=== PATIENT | male | born 1955 | race American Indian/Alaskan Native ===

== ENCOUNTER 2021-02-13 13:10 | Inpatient (IN) | payer OTHER ==
[2021-02-13] MEDS ORDERED: dexAMETHasone 4 MG/ML VIAL IV ONE (15:09)
[2021-02-13] MEDS ORDERED: SODIUM CHLORIDE 0.9% 1000 ML 1,000 ML IV ONE (15:13)
--- NOTE | 2021-02-13 15:13 | Emergency Department Report ---
HPI - General Chief Complaint: Dyspnea/Respdistress Time Seen by Provider: 02/13/21 14:28 - HPI HPI: This is a 65-year-old -[place] male presents to the emergency department via EMS from home with complaint of shortness of breath, cough, generalized fatigue and weakness, and low oxygen. The patient was seen at [facility] about 1 week ago with a complaint of the fatigue and weakness and was found to be positive for COVID-19 at that time. The patient began to have shortness of breath and a cough about 1 day later and it has gotten progressively worse since. When EMS arrived the patient had a room air pulse ox of 77%. He was placed on a nonrebreather and went up into the mid 90s. He has a history of prostate cancer from 2019 but is not currently undergoing any type of chemotherapy or radiation. He said that he traveled to [facility] about 1 month ago. No obvious known exposure to anyone with COVID-19 and no sick contacts at home. He denies any tobacco or illicit drug use. The patient was not vaccinated against COVID-19. ED Past Medical Hx - Past Medical History Previous Medical History?: Yes Hx of Cancer: Yes (Prostate) - Social History Smoking Status: Never Smoker Substance Use Type: None - Medications Home Medications: Home Medications Medication Instructions Recorded Confirmed Last Taken Type Docusate Sodium [Dok] 100 mg PO BID 02/13/21 02/13/21 Unknown History Gabapentin [Neurontin] 300 mg PO Q8HR 02/13/21 02/13/21 Unknown History HYDROcodone/ACETAMINOPHEN 1 each PO Q6HR PRN 02/13/21 02/13/21 Unknown History [Hydrocodone-Acetamin 7.5-300] Meloxicam [Mobic] 7.5 mg PO QDAY 02/13/21 02/13/21 Unknown History Omeprazole 40 mg PO QAM 02/13/21 02/13/21 Unknown History Sildenafil Citrate 50 mg PO QDAY 02/13/21 02/13/21 Unknown History ED Review of Systems ROS: Stated complaint: CHERRIE Other details as noted in HPI Comment: All other systems reviewed and negative Constitutional: weakness. denies: fever Eyes: denies: eye pain, vision change ENT: denies: ear pain, throat pain Respiratory: cough, shortness of breath Cardiovascular: denies: chest pain, palpitations Gastrointestinal: denies: abdominal pain, vomiting Genitourinary: denies: dysuria, discharge Musculoskeletal: denies: back pain, arthralgia Skin: denies: rash, lesions Neurological: denies: headache, weakness Physical Exam - Physical Exam Vital Signs: Vital Signs 02/13/21 13:20 Temperature 98.4 F Pulse Rate 80 Respiratory 20 Rate Blood Pressure 148/87 O2 Sat by Pulse 93 Oximetry Physical Exam: GENERAL: The patient is ill-appearing. HENT: Normocephalic. Atraumatic. Patient has moist mucous membranes. EYES: Extraocular motions are intact. NECK: Supple. Trachea is midline. CHEST/LUNGS: Rhonchi heard throughout the chest. There is tachypnea but no accessory muscle use. HEART/CARDIOVASCULAR: Regular. There is no tachycardia. There is no murmur. ABDOMEN: Abdomen is soft, nontender. Patient has normal bowel sounds. There is no abdominal distention. SKIN: Skin is warm and dry. NEURO: The patient is awake, alert, and oriented. The patient is cooperative. The patient has no focal neurologic deficits. Normal speech. MUSCULOSKELETAL: There is no tenderness or deformity. There is no limitation range of motion. ED Course Vital Signs 02/13/21 13:20 Temperature 98.4 F Pulse Rate 80 Respiratory 20 Rate Blood Pressure 148/87 O2 Sat by Pulse 93 Oximetry ED Medical Decision Making - Lab Data Result diagrams: 02/13/21 16:14 02/13/21 16:14 Lab Results 02/13/21 02/13/21 02/13/21 Range/Units 16:13 16:13 16:14 WBC 7.1 (4.5-11.0) K/mm3 RBC 4.93 (3.65-5.03) M/mm3 Hgb 13.7 (11.8-15.2) gm/dl Hct 41.8 (35.5-45.6) % MCV 85 (84-94) fl MCH 28 (28-32) pg MCHC 33 (32-34) % RDW 16.4 H (13.2-15.2) % Plt Count 327 (140-440) K/mm3 Lymph % (Auto) 8.6 L (13.4-35.0) % [place] % (Auto) 6.1 (0.0-7.3) % Eos % (Auto) 0.3 (0.0-4.3) % Baso % (Auto) 0.7 (0.0-1.8) % Lymph # (Auto) 0.6 L (1.2-5.4) K/mm3 [place] # (Auto) 0.4 (0.0-0.8) K/mm3 Eos # (Auto) 0.0 (0.0-0.4) K/mm3 Baso # (Auto) 0.0 (0.0-0.1) K/mm3 Seg Neutrophils % 84.3 H (40.0-70.0) % Seg Neutrophils # 6.0 (1.8-7.7) K/mm3 PT 16.9 H (12.2-14.9) Sec. INR 1.32 H (0.87-1.13) D-Dimer 7939.49 H (0-234) ng/mlDDU Sodium (137-145) mmol/L Potassium (3.6-5.0) mmol/L Chloride (98-107) mmol/L Carbon Dioxide (22-30) mmol/L Anion Gap mmol/L BUN (9-20) mg/dL Creatinine (0.8-1.3) mg/dL Estimated GFR ml/min BUN/Creatinine Ratio % Glucose (75-100) mg/dL Calcium (8.4-10.2) mg/dL Ferritin 1427.0 H (30.0-300.0) ng/mL Total Bilirubin (0.1-1.2) mg/dL AST (5-40) units/L ALT (7-56) units/L Alkaline Phosphatase (35-129) units/L Lactate Dehydrogenase (91-180) units/L Troponin T (0.00-0.029) ng/mL C-Reactive Protein (0.00-1.30) mg/dL NT-Pro-B Natriuret Pep (0-900) pg/mL Total Protein (6.3-8.2) g/dL Albumin (3.9-5) g/dL Albumin/Globulin Ratio % 02/13/21 02/13/21 Range/Units 16:14 16:14 WBC (4.5-11.0) K/mm3 RBC (3.65-5.03) M/mm3 Hgb (11.8-15.2) gm/dl Hct (35.5-45.6) % MCV (84-94) fl MCH (28-32) pg MCHC (32-34) % RDW (13.2-15.2) % Plt Count (140-440) K/mm3 Lymph % (Auto) (13.4-35.0) % [place] % (Auto) (0.0-7.3) % Eos % (Auto) (0.0-4.3) % Baso % (Auto) (0.0-1.8) % Lymph # (Auto) (1.2-5.4) K/mm3 [place] # (Auto) (0.0-0.8) K/mm3 Eos # (Auto) (0.0-0.4) K/mm3 Baso # (Auto) (0.0-0.1) K/mm3 Seg Neutrophils % (40.0-70.0) % Seg Neutrophils # (1.8-7.7) K/mm3 PT (12.2-14.9) Sec. INR (0.87-1.13) D-Dimer (0-234) ng/mlDDU Sodium 136 L (137-145) mmol/L Potassium 5.1 H (3.6-5.0) mmol/L Chloride 101.2 (98-107) mmol/L Carbon Dioxide 22 (22-30) mmol/L Anion Gap 18 mmol/L BUN 33 H (9-20) mg/dL Creatinine 1.2 (0.8-1.3) mg/dL Estimated GFR > 60 ml/min BUN/Creatinine Ratio 28 % Glucose 124 H (75-100) mg/dL Calcium 9.4 (8.4-10.2) mg/dL Ferritin (30.0-300.0) ng/mL Total Bilirubin 0.90 (0.1-1.2) mg/dL AST 81 H (5-40) units/L ALT 108 H (7-56) units/L Alkaline Phosphatase 151 H (35-129) units/L Lactate Dehydrogenase 443 H (91-180) units/L Troponin T < 0.010 (0.00-0.029) ng/mL C-Reactive Protein 32.00 H (0.00-1.30) mg/dL NT-Pro-B Natriuret Pep 236.4 (0-900) pg/mL Total Protein 7.6 (6.3-8.2) g/dL Albumin 3.0 L (3.9-5) g/dL Albumin/Globulin Ratio 0.7 % - EKG Data -: EKG Interpreted by Me EKG shows normal: sinus rhythm, axis, intervals, QRS complexes (LVH), ST-T waves (Early repolarization) Rate: normal - EKG Data When compared to previous EKG there are: previous EKG unavailable Interpretation: LVH - Radiology Data Radiology results: image reviewed interpreted by me: Chest x-ray shows bilateral patchy opacities concerning for pneumonia. No widened mediastinum. No pneumothorax. - Medical Decision Making This patient presents to the emergency department with shortness of breath and hypoxia. He was diagnosed with COVID-19 about 1 week ago. He was found to have a room air pulse ox of about 77%. Initially the patient was on a nonrebreather but we were able to place him on a nasal cannula at 5 L. However if the patient is sitting upright, his oxygen saturation goes down into the mid to high 80s. If he is laying flat then his oxygen will remain in the mid to high 90s. Chest x-ray shows bilateral patchy opacities concerning for pneumonia. The patient's labs shows multiple abnormalities including elevated inflammatory markers consistent with COVID-19 infection, such as D-dimer, ferritin, LDH and CRP. The patient also has some elevation in his LFTs. He has been given supplemental oxygen, Decadron, IV antibiotics and IV fluid resuscitation. The patient will be admitted to the hospital for further evaluation and treatment and was accepted for admission by the hospitalist, Dr. Kuhn. Critical Care Time: Yes Critical care time in (mins) excluding proc time.: 31 Critical care attestation.: If time is entered above; I have spent that time in minutes in the direct care of this critically ill patient, excluding procedure time. Critical care time w as spent on this patient in doing his initial evaluation, multiple reevaluations, ordering and interpretation of labs and imaging, IV steroids, IV antibiotics, IV fluid resuscitation, supplemental oxygen, multiple discussions with the patient. Critical Care Time: 31 minutes ED Disposition Clinical Impression: Suspected COVID-19 virus infection, Hypoxia, Elevated liver enzymes Bilateral pneumonia Qualifiers: Pneumonia type: due to unspecified organism Lung location: unspecified part of lung Qualified Code(s): J18.9 - Pneumonia, unspecified organism Disposition: DC-09 OP ADMIT IP TO THIS HOSP Is pt being admited?: Yes Condition: Serious Time of Disposition: 17:05
[2021-02-13] MEDS ORDERED: AZITHROMYCIN/NS 500 MG/250 ML 500 MG/250 ML BAG IV ONE (15:23)
[2021-02-13] MEDS ORDERED: cefTRIAXone/NS 1 GM/50 ML 1 GM/50 ML BAG IV ONE (15:23)
--- NOTE | 2021-02-13 15:35 | XRay Report ---
CHEST 1 VIEW INDICATION: SOB. COMPARISON: None FINDINGS: Support devices: None. Heart: Within normal limits. Lungs/Pleura: Moderate bilateral airspace opacities are identified. No consolidation, pleural effusio n or pneumothorax. Additional findings: None. IMPRESSION: Moderate bilateral airspace opacities concerning for viral infection or atypical pneumonia. Signer Name: Varghese Dillon Jr, MD Signed: 02/13/2021 3:30 PM Workstation Name: [id number]
[2021-02-13 16:30] LABS: Basophils % (Auto) 0.7 % (0.0-1.8); Eosinophils % (Auto) 0.3 % (0.0-4.3); Hematocrit 41.8 % (35.5-45.6); Hemoglobin 13.7 gm/dl (11.8-15.2); Lymphocytes # (Auto) 0.6 K/mm3 (1.2-5.4); Lymphocytes % (Auto) 8.6 % (13.4-35.0); Mean Corpuscular HGB Conc 33 % (32-34); Mean Corpuscular Volume 85 fl (84-94); Monocytes # (Auto) 0.4 K/mm3 (0.0-0.8); Monocytes % (Auto) 6.1 % (0.0-7.3); Platelet Count 327 K/mm3 (140-440); Red Blood Count 4.93 M/mm3 (3.65-5.03); Red Cell Distribution Width 16.4 % (13.2-15.2)
[2021-02-13 16:39] LABS: INR 1.32 (0.87-1.13)
[2021-02-13 16:54] LABS: Alanine Aminotransferase 108 units/L (7-56); BUN/Creatinine Ratio 28; Blood Urea Nitrogen 33 mg/dL (9-20); Calcium 9.4 mg/dL (8.4-10.2); Hemolysis Index 30
--- NOTE | 2021-02-13 21:16 | History and Physical Report ---
History of Present Illness Date of examination: 02/13/21 Date of admission: 02/13/21 17:05 Chief complaint: Cough and shortness of breath for 1 week History of present illness: 65-year-old male with past medical history of prostate cancer comes via EMS for cough, shortness of breath, generalized weakness and fatigue. Also low oxygen levels. Patient was recently diagnosed with COVID-19 1 week ago at [facility] [place], [place]. Patient was not admitted. Since then patient has been progressively worsening with pulse ox of 77% at home. Patient was placed on nonrebreather and oxygen level went up to mid 90s in the emergency room patient is not on any chemotherapy for prostate cancer. Patient is not vaccinated against Covid. Intermittent fever present. T - Past Medical History Previous Medical History?: Yes Hx of Cancer: Yes (Prostate) surgical history none - Social History Smoking Status: Never Smoker Substance Use Type: None Family history Htn - Medications Home Medications: Home Medications Medication Instructions Recorded Confirmed Last Taken Type Docusate Sodium [Dok] 100 mg PO BID 02/13/21 02/13/21 Unknown History Gabapentin [Neurontin] 300 mg PO Q8HR 02/13/21 02/13/21 Unknown History HYDROcodone/ACETAMINOPHEN 1 each PO Q6HR PRN 02/13/21 02/13/21 Unknown History [Hydrocodone-Acetamin 7.5-300] Meloxicam [Mobic] 7.5 mg PO QDAY 02/13/21 02/13/21 Unknown History Omeprazole 40 mg PO QAM 02/13/21 02/13/21 Unknown History Sildenafil Citrate 50 mg PO QDAY 02/13/21 02/13/21 Unknown History Review of Systems ROS: Stated complaint: CHERRIE Other details as noted in HPI Comment: All other systems reviewed and negative Constitutional: weakness. denies: fever Eyes: denies: eye pain, vision change ENT: denies: ear pain, throat pain Respiratory: cough, shortness of breath Cardiovascular: denies: chest pain, palpitations Gastrointestinal: denies: abdominal pain, vomiting Genitourinary: denies: dysuria, discharge Musculoskeletal: denies: back pain, arthralgia Skin: denies: rash, lesions Neurological: denies: headache, weakness Medications and Allergies Allergies Allergy/AdvReac Type Severity Reaction Status Date / Time No Known Allergies Allergy Verified 02/14/21 02:07 Home Medications Medication Instructions Recorded Confirmed Last Taken Type Docusate Sodium [Dok] 100 mg PO BID 02/13/21 02/13/21 Unknown History Gabapentin [Neurontin] 300 mg PO Q8HR 02/13/21 02/13/21 Unknown History HYDROcodone/ACETAMINOPHEN 1 each PO Q6HR PRN 02/13/21 02/13/21 Unknown History [Hydrocodone-Acetamin 7.5-300] Meloxicam [Mobic] 7.5 mg PO QDAY 02/13/21 02/13/21 Unknown History Omeprazole 40 mg PO QAM 02/13/21 02/13/21 Unknown History Sildenafil Citrate 50 mg PO QDAY 02/13/21 02/13/21 Unknown History Active Meds: Active Medications Sodium Chloride (Nacl 0.9% 1000 Ml) 1,000 mls @ 125 mls/hr IV ONCE ONE Stop: 02/13/21 23:12 Last Admin: 02/13/21 16:28 Dose: 125 mls/hr Documented by: Exam - Constitutional Vitals: Temp Pulse Resp BP Pulse Ox 98.4 F 65 15 136/81 99 02/13/21 13:20 02/13/21 20:06 02/13/21 20:06 02/13/21 20:06 02/13/21 20:06 General appearance: Present: mild distress, well-nourished - EENT Eyes: Present: PERRL ENT: hearing intact, clear oral mucosa - Neck Neck: Present: supple, normal ROM - Respiratory Respiratory effort: normal Respiratory: bilateral: CTA, rhonchi (Cooperative rhonchi) - Cardiovascular Heart rate: 78 Rhythm: regular Heart Sounds: Present: S1 & S2. Absent: rub, click - Extremities Extremities: no ischemia, pulses intact, pulses symmetrical, No edema Peripheral Pulses: within normal limits - Abdominal General gastrointestinal: Present: soft, non-tender, non-distended, normal bowel sounds Male genitourinary: Present: normal - Integumentary Integumentary: Present: clear, warm, dry - Musculoskeletal Musculoskeletal: gait normal, strength equal bilaterally - Psychiatric Psychiatric: appropriate mood/affect, intact judgment & insight - Neurologic Neurologic: CNII-XII intact, moves all extremities HEART Score - HEART Score Troponin: Troponin T < 0.010 ng/mL (0.00-0.029) 02/13/21 16:14 Results - Labs CBC & Chem 7: 02/13/21 16:14 02/13/21 16:14 Labs: Laboratory Last Values WBC 7.1 K/mm3 (4.5-11.0) 02/13/21 16:14 RBC 4.93 M/mm3 (3.65-5.03) 02/13/21 16:14 Hgb 13.7 gm/dl (11.8-15.2) 02/13/21 16:14 Hct 41.8 % (35.5-45.6) 02/13/21 16:14 MCV 85 fl (84-94) 02/13/21 16:14 MCH 28 pg (28-32) 02/13/21 16:14 MCHC 33 % (32-34) 02/13/21 16:14 RDW 16.4 % (13.2-15.2) H 02/13/21 16:14 Plt Count 327 K/mm3 (140-440) 02/13/21 16:14 Lymph % (Auto) 8.6 % (13.4-35.0) L 02/13/21 16:14 [place] % (Auto) 6.1 % (0.0-7.3) 02/13/21 16:14 Eos % (Auto) 0.3 % (0.0-4.3) 02/13/21 16:14 Baso % (Auto) 0.7 % (0.0-1.8) 02/13/21 16:14 Lymph # (Auto) 0.6 K/mm3 (1.2-5.4) L 02/13/21 16:14 [place] # (Auto) 0.4 K/mm3 (0.0-0.8) 02/13/21 16:14 Eos # (Auto) 0.0 K/mm3 (0.0-0.4) 02/13/21 16:14 Baso # (Auto) 0.0 K/mm3 (0.0-0.1) 02/13/21 16:14 Seg Neutrophils % 84.3 % (40.0-70.0) H 02/13/21 16:14 Seg Neutrophils # 6.0 K/mm3 (1.8-7.7) 02/13/21 16:14 PT 16.9 Sec. (12.2-14.9) H 02/13/21 16:13 INR 1.32 (0.87-1.13) H 02/13/21 16:13 D-Dimer 7939.49 ng/mlDDU (0-234) H 02/13/21 16:13 Sodium 136 mmol/L (137-145) L 02/13/21 16:14 Potassium 5.1 mmol/L (3.6-5.0) H 02/13/21 16:14 Chloride 101.2 mmol/L (98-107) 02/13/21 16:14 Carbon Dioxide 22 mmol/L (22-30) 02/13/21 16:14 Anion Gap 18 mmol/L 02/13/21 16:14 BUN 33 mg/dL (9-20) H 02/13/21 16:14 Creatinine 1.2 mg/dL (0.8-1.3) 02/13/21 16:14 Estimated GFR > 60 ml/min 02/13/21 16:14 BUN/Creatinine Ratio 28 % 02/13/21 16:14 Glucose 124 mg/dL (75-100) H 02/13/21 16:14 Calcium 9.4 mg/dL (8.4-10.2) 02/13/21 16:14 Ferritin 1427.0 ng/mL (30.0-300.0) H 02/13/21 16:13 Total Bilirubin 0.90 mg/dL (0.1-1.2) 02/13/21 16:14 AST 81 units/L (5-40) H 02/13/21 16:14 ALT 108 units/L (7-56) H 02/13/21 16:14 Alkaline Phosphatase 151 units/L (35-129) H 02/13/21 16:14 Lactate Dehydrogenase 443 units/L (91-180) H 02/13/21 16:14 Troponin T < 0.010 ng/mL (0.00-0.029) 02/13/21 16:14 C-Reactive Protein 32.00 mg/dL (0.00-1.30) H 02/13/21 16:14 NT-Pro-B Natriuret Pep 236.4 pg/mL (0-900) 02/13/21 16:14 Total Protein 7.6 g/dL (6.3-8.2) 02/13/21 16:14 Albumin 3.0 g/dL (3.9-5) L 02/13/21 16:14 Albumin/Globulin Ratio 0.7 % 02/13/21 16:14 Microbiology: Microbiology 02/13/21 16:13 Peripheral/Venous Blood Culture - Preliminary Culture in Progress 02/13/21 16:13 Peripheral/Venous Blood Culture - Preliminary Culture in Progress - Imaging and Cardiology Chest x-ray: report reviewed Imaging and Cardiology: Chest x-ray Moderate bilateral airspace opacities concerning for viral infection or atypical pneumonia Assessment and Plan Advance Directives: Yes (Full code) VTE prophylaxis?: Chemical Plan of care discussed with patient/family: Yes - Patient Problems (1) SIRS (systemic inflammatory response syndrome) Current Visit: Yes Status: Acute Plan to address problem: Patient has elevated CRP of 33 and elevated D-dimers consistent with systemic inflammatory response syndrome (2) Acute respiratory failure with hypoxia Current Visit: Yes Status: Acute Plan to address problem: Patient initial oxygen saturation was 77% Improved with nonrebreather Taper oxygen supplementation depending on patient's response (3) Bilateral pneumonia Current Visit: Yes Status: Acute Plan to address problem: Patient initiated on IV Zithromax and IV Rocephin Check procalcitonin level ID consult (4) Pneumonia due to COVID-19 virus Current Visit: Yes Status: Acute Plan to address problem: Highly likely patient has Covid pneumonia Coronavirus PCR pending Patient initiated on IV Decadron 8 mg every 24 zinc sulfate magnesium and vitamin D (5) Transaminitis Current Visit: Yes Status: Acute Plan to address problem: Probably secondary to Covid infection Check acute hepatitis profile (6) Hyponatremia Current Visit: Yes Status: Acute Plan to address problem: Very mild (7) Hyperkalemia Current Visit: Yes Status: Acute Plan to address problem: Mild Calcium gluconate given (8) DVT prophylaxis Current Visit: Yes Status: Acute Plan to address problem: On Lovenox and GI prophylaxis
[2021-02-13] MEDS ORDERED: [UNRECOGNIZED DRUG - OTHER] PO PRN (21:47)
[2021-02-13] MEDS ORDERED: HYDROCODONE PO PRN (21:47)
[2021-02-13] MEDS ORDERED: ACETAMINOPHEN PO PRN (21:47)
[2021-02-13] MEDS ORDERED: HYDROmorphone 1 MG/1 ML INJ IV PRN (21:48)
[2021-02-13] MEDS ORDERED: ONDANSETRON 4 MG/2 ML INJ IV PRN (21:48)
[2021-02-13] MEDS ORDERED: ACETAMINOPHEN 325 MG TAB PO PRN (21:48)
[2021-02-13] MEDS ORDERED: METOCLOPRAMIDE 10 MG/2 ML INJ IV PRN (21:48)
[2021-02-13] MEDS ORDERED: HYDROcodone/ACETAMINOPHEN 7.5-325MG TAB PO PRN (21:52)
[2021-02-13] MEDS ORDERED: NON-FORMULARY EACH (Docusate Sodium [Dok] 100 MG Tablet) PO SCH (22:00)
[2021-02-13] MEDS: ENOXAPARIN 40 MG/0.4 ML INJ SUB-Q SCH (22:58)
[2021-02-13] MEDS: GABAPENTIN 300 MG CAP PO SCH (22:58)
[2021-02-13] MEDS: DOCUSATE SODIUM 100 MG CAP PO SCH (22:58)
[2021-02-14] MEDS: GABAPENTIN 300 MG CAP PO SCH ×3 (05:41→22:08)
[2021-02-14] MEDS ORDERED: CALCIUM GLUCONATE 2,000 MG in SODIUM CHLORIDE 0.9% 100 ML IV ONE (07:30)
--- NOTE | 2021-02-14 08:11 | Progress Note ---
Assessment and Plan Assessment and plan: 65-year-old male with past medical history of prostate cancer comes via EMS for cough, shortness of breath, generalized weakness and fatigue. Also low oxygen levels. Patient was recently diagnosed with COVID-19 1 week ago at [facility] - [place], [place]. Patient was not admitted. Since then patient has been progressively worsening with pulse ox of 77% at home. Patient was placed on nonrebreather and oxygen level went up to mid 90s in the emergency room patient is not on any chemotherapy for prostate cancer. Patient is not vaccinated against Covid. Intermittent fever present. (1) SIRS (systemic inflammatory response syndrome) Current Visit: Yes Status: Acute Plan to address problem: Patient has elevated CRP of 33 and elevated D-dimers consistent with systemic inflammatory response syndrome (2) Acute respiratory failure with hypoxia Current Visit: Yes Status: Acute Plan to address problem: Patient initial oxygen saturation was 77% Improved with nonrebreather Taper oxygen supplementation depending on patient's response (3) Bilateral pneumonia Current Visit: Yes Status: Acute Plan to address problem: Patient initiated on IV Zithromax and IV Rocephin Check procalcitonin level ID consult (4) Pneumonia due to COVID-19 virus Current Visit: Yes Status: Acute Plan to address problem: Highly likely patient has Covid pneumonia Coronavirus PCR pending Patient initiated on IV Decadron 8 mg every 24 zinc sulfate magnesium and vitamin D (5) Transaminitis Current Visit: Yes Status: Acute Plan to address problem: Probably secondary to Covid infection Check acute hepatitis profile (6) Hyponatremia Current Visit: Yes Status: Acute Plan to address problem: Very mild (7) Hyperkalemia Current Visit: Yes Status: Acute Plan to address problem: Mild Calcium gluconate given (8) DVT prophylaxis Current Visit: Yes Status: Acute Plan to address problem: On Lovenox and GI prophylaxis 02/14 -Patient is on IV Decadron, remdesivir and IV antibiotics. Prolactin level was elevated and will continue with empiric antibiotics for 5 days.. Patient has significantly elevated D-dimer and CTA chest was done and negative and bilatera l Doppler ultrasound of the lower extremities was done and reading pending. History Interval history: Patient was seen and evaluated this morning Patient was complaining shortness of breath Patient was on 4 L of oxygen Hospitalist Physical - Physical exam Narrative exam: Patient was on 4 L of oxygen The patient appeared well nourished and normally developed. Vital signs as documented. Head exam is unremarkable. No scleral icterus . Neck is without jugular venous distension, thyromegaly, or carotid bruits. Lungs are clear to auscultation. Cardiac exam reveals regular rate and Rhythm. Abdominal exam reveals normal bowel sounds, nontender, no organomegaly. Extremities are nonedematous and both femoral and pedal pulses are normal. MANAGER PLANNING: Alert and oriented 3. No focal weakness. - Constitutional Vitals: Temp Pulse Resp BP Pulse Ox 97.4 F L 67 18 155/81 94 02/13/21 22:30 02/13/21 22:30 02/13/21 22:30 02/13/21 22:30 02/14/21 00:49 General appearance: Present: mild distress, well-nourished HEART Score - HEART Score Troponin: Troponin T < 0.010 ng/mL (0.00-0.029) 02/13/21 16:14 Results - Labs CBC & Chem 7: 02/14/21 10:05 02/14/21 10:05 Labs: Laboratory Last Values WBC 7.1 K/mm3 (4.5-11.0) 02/13/21 16:14 RBC 4.93 M/mm3 (3.65-5.03) 02/13/21 16:14 Hgb 13.7 gm/dl (11.8-15.2) 02/13/21 16:14 Hct 41.8 % (35.5-45.6) 02/13/21 16:14 MCV 85 fl (84-94) 02/13/21 16:14 MCH 28 pg (28-32) 02/13/21 16:14 MCHC 33 % (32-34) 02/13/21 16:14 RDW 16.4 % (13.2-15.2) H 02/13/21 16:14 Plt Count 327 K/mm3 (140-440) 02/13/21 16:14 Lymph % (Auto) 8.6 % (13.4-35.0) L 02/13/21 16:14 [place] % (Auto) 6.1 % (0.0-7.3) 02/13/21 16:14 Eos % (Auto) 0.3 % (0.0-4.3) 02/13/21 16:14 Baso % (Auto) 0.7 % (0.0-1.8) 02/13/21 16:14 Lymph # (Auto) 0.6 K/mm3 (1.2-5.4) L 02/13/21 16:14 [place] # (Auto) 0.4 K/mm3 (0.0-0.8) 02/13/21 16:14 Eos # (Auto) 0.0 K/mm3 (0.0-0.4) 02/13/21 16:14 Baso # (Auto) 0.0 K/mm3 (0.0-0.1) 02/13/21 16:14 Seg Neutrophils % 84.3 % (40.0-70.0) H 02/13/21 16:14 Seg Neutrophils # 6.0 K/mm3 (1.8-7.7) 02/13/21 16:14 PT 16.9 Sec. (12.2-14.9) H 02/13/21 16:13 INR 1.32 (0.87-1.13) H 02/13/21 16:13 D-Dimer 7939.49 ng/mlDDU (0-234) H 02/13/21 16:13 Sodium 136 mmol/L (137-145) L 02/13/21 16:14 Potassium 5.1 mmol/L (3.6-5.0) H 02/13/21 16:14 Chloride 101.2 mmol/L (98-107) 02/13/21 16:14 Carbon Dioxide 22 mmol/L (22-30) 02/13/21 16:14 Anion Gap 18 mmol/L 02/13/21 16:14 BUN 33 mg/dL (9-20) H 02/13/21 16:14 Creatinine 1.2 mg/dL (0.8-1.3) 02/13/21 16:14 Estimated GFR > 60 ml/min 02/13/21 16:14 BUN/Creatinine Ratio 28 % 02/13/21 16:14 Glucose 124 mg/dL (75-100) H 02/13/21 16:14 Calcium 9.4 mg/dL (8.4-10.2) 02/13/21 16:14 Ferritin 1427.0 ng/mL (30.0-300.0) H 02/13/21 16:13 Total Bilirubin 0.90 mg/dL (0.1-1.2) 02/13/21 16:14 AST 81 units/L (5-40) H 02/13/21 16:14 ALT 108 units/L (7-56) H 02/13/21 16:14 Alkaline Phosphatase 151 units/L (35-129) H 02/13/21 16:14 Lactate Dehydrogenase 443 units/L (91-180) H 02/13/21 16:14 Troponin T < 0.010 ng/mL (0.00-0.029) 02/13/21 16:14 C-Reactive Protein 32.00 mg/dL (0.00-1.30) H 02/13/21 16:14 NT-Pro-B Natriuret Pep 236.4 pg/mL (0-900) 02/13/21 16:14 Total Protein 7.6 g/dL (6.3-8.2) 02/13/21 16:14 Albumin 3.0 g/dL (3.9-5) L 02/13/21 16:14 Albumin/Globulin Ratio 0.7 % 02/13/21 16:14 Microbiology: Microbiology 02/13/21 16:13 Peripheral/Venous Blood Culture - Preliminary Culture in Progress 02/13/21 16:13 Peripheral/Venous Blood Culture - Preliminary Culture in Progress Santos/IV: Voiding Method Urinal Active Medications - Current Medications Current Medications: Generic Name Dose Route Start Last Admin Trade Name Freq PRN Reason Stop Dose Admin Acetaminophen 650 mg 02/13/21 21:48 Acetaminophen 325 Mg Tab PO Q4H PRN Pain MILD(1-3)/Fever >100.5/SALAS Hydrocodone Bitart/Acetaminophen 1 each 02/13/21 21:52 Hydrocodone/Acetaminophen 7.5-325mg Tab PO Q6H PRN Pain , Severe (7-10) Dexamethasone 8 mg 02/14/21 10:00 Dexamethasone 4 Mg/Ml Vial IV 02/22/21 10:01 Q24H ALIN Docusate Sodium 100 mg 02/13/21 22:00 02/13/21 22:58 Docusate Sodium 100 Mg Cap PO 100 mg BID ALIN Administration Enoxaparin Sodium 40 mg 02/13/21 22:00 02/13/21 22:58 Enoxaparin 40 Mg/0.4 Ml Inj SUB-Q 40 mg QDAY@2200 ALIN Administration Gabapentin 300 mg 02/13/21 22:00 02/14/21 05:41 Gabapentin 300 Mg Cap PO 300 mg Q8HR ALIN Administration Hydromorphone HCl 0.5 mg 02/13/21 21:48 Hydromorphone 1 Mg/1 Ml Inj IV Q3H PRN Pain , Severe (7-10) Azithromycin 500 mg in 250 mls @ 250 mls/hr 02/14/21 10:00 Zithromax/Ns IV 02/17/21 10:59 Q24H ALIN Ceftriaxone Sodium 2 gm in 100 mls @ 200 mls/hr 02/14/21 10:00 Rocephin/Ns 2 Gm/100 Ml IV Q24HR [facility] Protocol Metoclopramide HCl 10 mg 02/13/21 21:48 Metoclopramide 10 Mg/2 Ml Inj IV Q6H PRN Nausea And Vomiting Ondansetron HCl 4 mg 02/13/21 21:48 Ondansetron 4 Mg/2 Ml Inj IV Q8H PRN Nausea And Vomiting Pantoprazole Sodium 40 mg 02/14/21 07:30 Pantoprazole 40 Mg Tab PO QDAC ALIN Sodium Chloride 10 ml 02/13/21 22:00 02/13/21 23:00 Sodium Chloride 0.9% 10 Ml Flush Syringe IV 10 ml BID ALIN Administration Sodium Chloride 10 ml 02/13/21 21:48 Sodium Chloride 0.9% 10 Ml Flush Syringe IV PRN PRN LINE FLUSH
[2021-02-14] MEDS: PANTOPRAZOLE 40 MG TAB PO SCH (09:11)
[2021-02-14] MEDS: DOCUSATE SODIUM 100 MG CAP PO SCH ×2 (09:11→22:08)
[2021-02-14] MEDS: cefTRIAXone/NS 2 GM/100 ML 2 GM/100 ML BAG IV SCH (09:11)
[2021-02-14] MEDS: AZITHROMYCIN/NS 500 MG/250 ML 500 MG/250 ML BAG IV SCH (09:11)
[2021-02-14] MEDS: dexAMETHasone 4 MG/ML VIAL IV SCH (09:12)
--- NOTE | 2021-02-14 09:38 | Cat Scan Report ---
CTA CHEST WITH CONTRAST INDICATION : Shortness of breath, elevated D-dimer OMNI 350 100 ML. TECHNIQUE: Axial imaging performed through the chest, with contrast bolus timing set to maximize opa cification of the pulmonary arteries. Sagittal and coronal reformatted images. 3-plane MIP reformatte d images were obtained. All CT scans at this location are performed using CT dose reduction for ALAR A by means of automated exposure control. 100 mL of intravenous contrast administered. COMPARISON: AP chest performed yesterday FINDINGS: Bolus: Contrast bolus timing is adequate. PTE: No filling defect is present to suggest PTE. Mediastinum: Heart size is at the upper limits of normal. No pericardial effusion. Normal thoracic a nabeel. No pathologic mediastinal adenopathy. Lungs: Moderate to severe bilateral groundglass lung opacities are identified predominantly in the p eripheral and lower lung zones. No pleural effusion or pneumothorax. Bones: Degenerative changes in the spine with nothing acute. Upper abdomen: Limited imaging of the upper abdomen shows nothing acute. IMPRESSION: No pulmonary embolus is identified. Borderline heart size. Bilateral groundglass infiltrates concerning for atypical pneumonia or viral infection. Signer Name: Varghese Dillon Jr, MD Signed: 02/14/2021 9:33 AM Workstation Name: [id number]
[2021-02-14] MEDS ORDERED: NON-FORMULARY EACH (Omeprazole [Omeprazole] 40 MG Capsule.Dr) PO SCH (10:00)
[2021-02-14 10:37] LABS: Hematocrit 40.3 % (35.5-45.6); Hemoglobin 13.3 gm/dl (11.8-15.2); Mean Corpuscular HGB Conc 33 % (32-34); Mean Corpuscular Volume 84 fl (84-94); Platelet Count 354 K/mm3 (140-440); Red Blood Count 4.82 M/mm3 (3.65-5.03)
[2021-02-14 10:55] LABS: Alanine Aminotransferase 102 units/L (7-56); Albumin 2.7 g/dL (3.9-5); BUN/Creatinine Ratio 31; Blood Urea Nitrogen 31 mg/dL (9-20); Hemolysis Index 1
[2021-02-14 11:05] LABS: Hepatitis B Surface Antigen Non-Reactive (Negative); Hepatitis C Virus Antibody Non-Reactive (NonReactive)
--- NOTE | 2021-02-14 12:41 | Consultation ---
History of Present Illness - Reason for Consult Consult date: 02/14/21 COVID pneumonia Requesting physician: MARLEY HENRY - History of Present Illness The patient is a 65-year-old male with prostate cancer admitted to the hospital with cough and shortness of breath going on for a few days. Patient was diagnosed with COVID-19 1 week ago. Due to worsening shortness of breath and hypoxia at home, came to the ER. Was placed on nonrebreather in the ER. Patient is unvaccinated. Infectious diseases was consulted for additional evaluation. Patient is afebrile. Labs revealed normal WBC, D-dimer 7939, transaminitis, CRP 32.0, procalcitonin 4.9, ferritin 1427. Hepatitis B core IgM reactive. Review of Systems: General: Low-grade fever HEENT: no new visual disturbance Respiratory: Cough, shortness of breath Cardiovascular: No chest pain, syncope Gastrointestinal: No nausea, vomiting or diarrhea Genitourinary: No dysuria or hematuria Musculoskeletal: No new or worsening neck pain or back pain Neurologic: No headaches, seizures Hematologic: No easy bruising or bleeding Endocrine: No night sweats or acute weight loss Skin: negative for rash, jaundice Psychiatric: No suicidal or homicidal ideation Medications and Allergies Allergies Allergy/AdvReac Type Severity Reaction Status Date / Time No Known Allergies Allergy Verified 02/14/21 02:07 Home Medications Medication Instructions Recorded Confirmed Last Taken Type Docusate Sodium [Dok] 100 mg PO BID 02/13/21 02/13/21 Unknown History Gabapentin [Neurontin] 300 mg PO Q8HR 02/13/21 02/13/21 Unknown History HYDROcodone/ACETAMINOPHEN 1 each PO Q6HR PRN 02/13/21 02/13/21 Unknown History [Hydrocodone-Acetamin 7.5-300] Meloxicam [Mobic] 7.5 mg PO QDAY 02/13/21 02/13/21 Unknown History Omeprazole 40 mg PO QAM 02/13/21 02/13/21 Unknown History Sildenafil Citrate 50 mg PO QDAY 02/13/21 02/13/21 Unknown History Active Meds: Active Medications Acetaminophen (Acetaminophen 325 Mg Tab) 650 mg PO Q4H PRN PRN Reason: Pain MILD(1-3)/Fever >100.5/SALAS Hydrocodone Bitart/Acetaminophen (Hydrocodone/Acetaminophen 7.5-325mg Tab) 1 each PO Q6H PRN PRN Reason: Pain , Severe (7-10) Dexamethasone (Dexamethasone 4 Mg/Ml Vial) 8 mg IV Q24H [facility] Stop: 02/22/21 10:01 Last Admin: 02/14/21 09:12 Dose: 8 mg Documented by: Docusate Sodium (Docusate Sodium 100 Mg Cap) 100 mg PO BID [facility] Last Admin: 02/14/21 09:11 Dose: 100 mg Documented by: Enoxaparin Sodium (Enoxaparin 40 Mg/0.4 Ml Inj) 40 mg SUB-Q QDAY@2200 [facility] Last Admin: 02/13/21 22:58 Dose: 40 mg Documented by: Gabapentin (Gabapentin 300 Mg Cap) 300 mg PO Q8HR [facility] Last Admin: 02/14/21 05:41 Dose: 300 mg Documented by: Hydromorphone HCl (Hydromorphone 1 Mg/1 Ml Inj) 0.5 mg IV Q3H PRN PRN Reason: Pain , Severe (7-10) Azithromycin (Zithromax/Ns) 500 mg in 250 mls @ 250 mls/hr IV Q24H [facility] Stop: 02/17/21 10:59 Last Infusion: 02/14/21 11:29 Dose: Infused Documented by: Ceftriaxone Sodium (Rocephin/Ns 2 Gm/100 Ml) 2 gm in 100 mls @ 200 mls/hr IV Q24HR [facility]; Protocol Last Infusion: 02/14/21 11:28 Dose: Infused Documented by: Metoclopramide HCl (Metoclopramide 10 Mg/2 Ml Inj) 10 mg IV Q6H PRN PRN Reason: Nausea And Vomiting Ondansetron HCl (Ondansetron 4 Mg/2 Ml Inj) 4 mg IV Q8H PRN PRN Reason: Nausea And Vomiting Pantoprazole Sodium (Pantoprazole 40 Mg Tab) 40 mg PO QDAC [facility] Last Admin: 02/14/21 09:11 Dose: 40 mg Documented by: Sodium Chloride (Sodium Chloride 0.9% 10 Ml Flush Syringe) 10 ml IV BID [facility] Last Admin: 02/14/21 09:11 Dose: 10 ml Documented by: Sodium Chloride (Sodium Chloride 0.9% 10 Ml Flush Syringe) 10 ml IV PRN PRN PRN Reason: LINE FLUSH Physical Examination - Physical Exam Narrative exam: Physical Exam: Constitutional: Alert, cooperative. No acute distress Head, Ears, Nose: Normocephalic, atraumatic. External ears, nose normal Eyes: Conjunctivae/corneas clear. No icterus. No ptosis. Neck: Supple, no meningeal signs Oral: Deferred Cardiovascular: S1, S2 + Respiratory: Few coarse sounds bilaterally GI: Soft, non-tender; bowel sounds normal. No peritoneal signs Musculoskeletal: No pedal edema, no cyanosis. Skin: No rash or abscess Hem/Lymphatic: No palpable cervical or supraclavicular nodes. No lymphangitis Psych: Mood ok. Affect normal Neurological: Awake, alert, oriented. No gross abnormality - Constitutional Vitals: Vital Signs Temp Pulse Resp BP Pulse Ox 97.4 F L 67 18 155/81 94 02/13/21 22:30 02/13/21 22:30 02/13/21 22:30 02/13/21 22:30 02/14/21 00:49 Temperature -Last 24 Hours Temperature 97.4 F Temperature 98.4 F Results - Labs CBC & Chem 7: 02/14/21 10:05 02/14/21 10:05 Labs: Abnormal lab results 02/13/21 02/13/21 02/13/21 Range/Units 16:13 16:13 16:14 RDW 16.4 H (13.2-15.2) % Lymph % (Auto) 8.6 L (13.4-35.0) % Lymph # (Auto) 0.6 L (1.2-5.4) K/mm3 Seg Neutrophils % 84.3 H (40.0-70.0) % PT 16.9 H (12.2-14.9) Sec. INR 1.32 H (0.87-1.13) D-Dimer 7939.49 H (0-234) ng/mlDDU Sodium (137-145) mmol/L Potassium (3.6-5.0) mmol/L Carbon Dioxide (22-30) mmol/L BUN (9-20) mg/dL Glucose (75-100) mg/dL Hemoglobin A1c (4-6) % Ferritin 1427.0 H (30.0-300.0) ng/mL AST (5-40) units/L ALT (7-56) units/L Alkaline Phosphatase (35-129) units/L Lactate Dehydrogenase (91-180) units/L C-Reactive Protein (0.00-1.30) mg/dL Albumin (3.9-5) g/dL Hep B Core IgM Ab (NonReactive) 02/13/21 02/13/21 02/14/21 Range/Units 16:14 16:14 10:05 RDW 16.0 H (13.2-15.2) % Lymph % (Auto) (13.4-35.0) % Lymph # (Auto) (1.2-5.4) K/mm3 Seg Neutrophils % (40.0-70.0) % PT (12.2-14.9) Sec. INR (0.87-1.13) D-Dimer (0-234) ng/mlDDU Sodium 136 L (137-145) mmol/L Potassium 5.1 H (3.6-5.0) mmol/L Carbon Dioxide (22-30) mmol/L BUN 33 H (9-20) mg/dL Glucose 124 H (75-100) mg/dL Hemoglobin A1c (4-6) % Ferritin (30.0-300.0) ng/mL AST 81 H (5-40) units/L ALT 108 H (7-56) units/L Alkaline Phosphatase 151 H (35-129) units/L Lactate Dehydrogenase 443 H (91-180) units/L C-Reactive Protein 32.00 H (0.00-1.30) mg/dL Albumin 3.0 L (3.9-5) g/dL Hep B Core IgM Ab (NonReactive) 02/14/21 02/14/21 02/14/21 Range/Units 10:05 10:05 10:05 RDW (13.2-15.2) % Lymph % (Auto) (13.4-35.0) % Lymph # (Auto) (1.2-5.4) K/mm3 Seg Neutrophils % (40.0-70.0) % PT (12.2-14.9) Sec. INR (0.87-1.13) D-Dimer (0-234) ng/mlDDU Sodium 136 L (137-145) mmol/L Potassium (3.6-5.0) mmol/L Carbon Dioxide 19 L (22-30) mmol/L BUN 31 H (9-20) mg/dL Glucose 163 H (75-100) mg/dL Hemoglobin A1c 6.7 H (4-6) % Ferritin (30.0-300.0) ng/mL AST 71 H (5-40) units/L ALT 102 H (7-56) units/L Alkaline Phosphatase 151 H (35-129) units/L Lactate Dehydrogenase (91-180) units/L C-Reactive Protein (0.00-1.30) mg/dL Albumin 2.7 L (3.9-5) g/dL Hep B Core IgM Ab Reactive A (NonReactive) - Imaging and Cardiology Chest x-ray: report reviewed, image reviewed (b/l opacities) CT scan - chest: report reviewed, image reviewed (b/l GGO) Assessment and Plan Cultures: SARS CoV2 PCR: Positive 02/13/2021 blood culture: In process Hepatitis B core IgM reactive A/P: 65-year-old male with prostate cancer, and vaccinated for COVID-19 admitted to the hospital with: #Bilateral COVID-19 pneumonia: CTA negative for PE #Acute hypoxic respiratory failure: required NRB in the ER. #Transaminitis: Likely secondary to COVID-19. Hepatitis B core IgM reactive #Hepatitis B serology: Unclear if false positive, surface antigen is negative. Check Hep B DNA PCR Recs: IV/PO Dexamethasone x 10 days IV remdesivir ordered Due to elevated procalcitonin, cannot rule out bacterial infection, hence not a candidate for Tocilizumab Continue empiric antibiotics for total 5 days prophylactic anticoagulation based on d-dimer per hospital protocol trend ferritin, LDH, d-dimer, CRP every 2-3 days for risk stratification and to assess disease progression Check Hep B DNA PCR Munira Jeffery MD, FACP [facility], [place], [facility] ([facility] O: [phone] F: [phone]
--- NOTE | 2021-02-14 13:17 | Vascular Lab Report ---
DUPLEX DOPPLER LOWER EXTREMITY VEINS, BILATERAL INDICATION: Elevated D-dimer, shortness of breath. TECHNIQUE: Duplex doppler imaging was performed through the veins of both lower extremities using ve nous compression and other maneuvers. COMPARISON: No relevant prior imaging study available. FINDINGS: Right Common femoral vein: Negative. Right Superficial femoral vein: Negative. Right Popliteal vein: Negative. Right Calf veins: Negative. Left Common femoral vein: Negative. Left Superficial femoral vein: Negative. Left Popliteal vein: Negative. Left Calf veins: Negative. Additional findings: None. IMPRESSION: No sonographic evidence for DVT in either lower extremity. Signer Name: Varghese Dillon Jr, MD Signed: 02/14/2021 1:13 PM Workstation Name: [id number]
[2021-02-14 14:11] LABS: Total Cells Counted 100
[2021-02-14 14:13] LABS: Myelocytes # (Manual) 0.1 K/mm3; Platelet Estimate Consistent w Auto; RBC Morphology Normal
[2021-02-14] MEDS ORDERED: REMDESIVIR 200 MG in SODIUM CHLORIDE 0.9% 250ML 250 ML IV ONE (15:00)
[2021-02-14] MEDS: SODIUM CHLORIDE 0.9% 50 ML IVPB IV SCH (15:56)
--- NOTE | 2021-02-14 17:51 | Electrocardiograph Report ---
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
[2021-02-14] MEDS: CHOLECALCIFEROL (VIT D3) 5,000 UNIT TAB PO SCH (18:45)
[2021-02-14] MEDS: ASCORBIC ACID 500 MG TAB PO SCH (22:08)
[2021-02-14] MEDS: ENOXAPARIN 40 MG/0.4 ML INJ SUB-Q SCH (22:08)
[2021-02-14] MEDS: ZINC SULFATE 220 MG CAP PO SCH (22:09)
[2021-02-15] MEDS: GABAPENTIN 300 MG CAP PO SCH ×3 (05:38→22:19)
[2021-02-15 08:38] LABS: Alanine Aminotransferase 145 units/L (7-56); Albumin 2.6 g/dL (3.9-5); BUN/Creatinine Ratio 28; Blood Urea Nitrogen 22 mg/dL (9-20); Hemolysis Index 2
[2021-02-15] MEDS: CHOLECALCIFEROL (VIT D3) 5,000 UNIT TAB PO SCH (09:25)
[2021-02-15] MEDS: PANTOPRAZOLE 40 MG TAB PO SCH (09:25)
[2021-02-15] MEDS: ZINC SULFATE 220 MG CAP PO SCH ×2 (09:25→22:18)
[2021-02-15] MEDS: cefTRIAXone/NS 2 GM/100 ML 2 GM/100 ML BAG IV SCH (09:25)
[2021-02-15] MEDS: DOCUSATE SODIUM 100 MG CAP PO SCH ×2 (09:25→22:19)
[2021-02-15] MEDS: ASCORBIC ACID 500 MG TAB PO SCH ×2 (09:25→22:18)
[2021-02-15] MEDS: dexAMETHasone 4 MG/ML VIAL IV SCH (09:30)
--- NOTE | 2021-02-15 11:09 | Progress Note ---
Assessment and Plan Cultures: SARS CoV2 PCR: Positive 02/13/2021 blood culture: no growth Hepatitis B core IgM reactive A/P: 65-year-old male with prostate cancer, and vaccinated for COVID-19 admitted to the hospital with: #Bilateral COVID-19 pneumonia: CTA negative for PE #Acute hypoxic respiratory failure: required NRB in the ER. Now on NC. #Transaminitis: Likely secondary to COVID-19. Hepatitis B core IgM reactive #Hepatitis B serology: Unclear if false positive, surface antigen is negative. F/U Hep B DNA PCR Recs: continue IV/PO Dexamethasone x 10 days continue IV remdesivir x 5 days Due to elevated procalcitonin, cannot rule out bacterial infection, hence not a candidate for Tocilizumab Continue empiric antibiotics for total 5 days prophylactic anticoagulation based on d-dimer per hospital protocol trend ferritin, LDH, d-dimer, CRP every 2-3 days for risk stratification and to assess disease progression f/u Hep B DNA PCR Munira Jeffery MD, FACP [facility] ([facility] O: [phone] F: [phone] Subjective Date of service: 02/15/21 Interval history: no fever. Remains on oxygen by [place]. Objective - Exam Narrative Exam: Physical Exam: deferred to minimize risk of transmission. Chart reviewed. - Constitutional Vitals: Vital Signs Temp Pulse Resp BP Pulse Ox 97.4 F L 50 L 18 156/83 93 02/15/21 01:42 02/15/21 01:42 02/15/21 01:42 02/15/21 01:42 02/15/21 01:42 Temperature -Last 24 Hours Temperature 97.4 F Temperature 97.7 F Temperature 98.4 F - Labs CBC & Chem 7: 02/14/21 10:05 02/15/21 07:29 Labs: Abnormal lab results 02/13/21 02/14/21 02/14/21 Range/Units 08:30 10:05 10:05 Seg Neuts % (Manual) 83.0 H (40.0-70.0) % Lymphocytes % (Manual) 13.0 L (13.4-35.0) % Lymphocytes # (Manual) 1.1 L (1.2-5.4) K/mm3 D-Dimer (0-234) ng/mlDDU Sodium 136 L (137-145) mmol/L Carbon Dioxide 19 L (22-30) mmol/L BUN 31 H (9-20) mg/dL Glucose 163 H (75-100) mg/dL AST 71 H (5-40) units/L ALT 102 H (7-56) units/L Alkaline Phosphatase 151 H (35-129) units/L C-Reactive Protein (0.00-1.30) mg/dL Albumin 2.7 L (3.9-5) g/dL Coronavirus (PCR) Positive A (Negative) 02/15/21 02/15/21 02/15/21 Range/Units 07:29 07:29 07:29 Seg Neuts % (Manual) (40.0-70.0) % Lymphocytes % (Manual) (13.4-35.0) % Lymphocytes # (Manual) (1.2-5.4) K/mm3 D-Dimer 4286.34 H (0-234) ng/mlDDU Sodium 135 L (137-145) mmol/L Carbon Dioxide 20 L (22-30) mmol/L BUN 22 H (9-20) mg/dL Glucose (75-100) mg/dL AST 140 H (5-40) units/L ALT 145 H (7-56) units/L Alkaline Phosphatase 147 H (35-129) units/L C-Reactive Protein 7.70 H (0.00-1.30) mg/dL Albumin 2.6 L (3.9-5) g/dL Coronavirus (PCR) (Negative)
--- NOTE | 2021-02-15 12:05 | Progress Note ---
Assessment and Plan - Patient Problems (1) Acute respiratory failure with hypoxia Current Visit: Yes Status: Acute Plan to address problem: Supplemental oxygen, pulse oximetry, nebulizer therapy, noninvasive positive pressure ventilation as clinically indicated. (2) Bilateral pneumonia Current Visit: Yes Status: Acute Qualifiers: Pneumonia type: due to unspecified organism Lung location: unspecified part of lung Qualified Code(s): J18.9 - Pneumonia, unspecified organism Plan to address problem: Pneumonia protocol: IV antibiotic therapy, supplemental oxygen, pulse oximetry, blood culture. (3) SIRS (systemic inflammatory response syndrome) Current Visit: Yes Status: Acute Plan to address problem: IV antibiotic therapy, IV steroid therapy, supplemental oxygen, pulse oximetry, proposition while in bed, vitamin C therapy, vitamin D therapy, zinc therapy. (4) Suspected COVID-19 virus infection Current Visit: Yes Status: Acute (5) DVT prophylaxis Current Visit: Yes Status: Acute Plan to address problem: SCD to bilateral lower extremities while in bed, prophylactic anticoagulation (6) Advance care planning Current Visit: Yes Status: Acute Plan to address problem: Disease education conducted, care plan discussed, diagnosis discussed, prognosis discussed, patient knowledges understanding and agreement with care plan, +30 minutes. History Interval history: 65 YO Male HD#2 with systemic inflammatory response syndrome, acute respiratory failure with hypoxemia, bilateral pneumonia, coronavirus infection. Patient resting comfortably in bed. No reported nursing events overnight. Patient denies pain. Patient knowledges continued shortness of breath. Hospitalist Physical - Constitutional Vitals: Temp Pulse Resp BP Pulse Ox 97.4 F L 50 L 18 156/83 93 02/15/21 01:42 02/15/21 01:42 02/15/21 01:42 02/15/21 01:42 02/15/21 01:42 General appearance: Present: mild distress, well-nourished - EENT Eyes: Present: PERRL, EOM intact ENT: hearing intact - Neck Neck: Present: supple - Respiratory Respiratory effort: labored, accessory muscle use Respiratory: bilateral: diminished, rhonchi - Cardiovascular Rhythm: regular Heart Sounds: Present: S1 & S2 - Extremities Extremities: no ischemia Peripheral Pulses: within normal limits - Abdominal General gastrointestinal: soft, non-tender, non-distended - Integumentary Integumentary: Present: clear, dry - Psychiatric Psychiatric: appropriate mood/affect, cooperative - Neurologic Neurologic: CNII-XII intact HEART Score - HEART Score Troponin: Troponin T < 0.010 ng/mL (0.00-0.029) 02/13/21 16:14 Results - Labs CBC & Chem 7: 02/14/21 10:05 02/16/21 06:18 Labs: Laboratory Last Values WBC 8.3 K/mm3 (4.5-11.0) 02/14/21 10:05 RBC 4.82 M/mm3 (3.65-5.03) 02/14/21 10:05 Hgb 13.3 gm/dl (11.8-15.2) 02/14/21 10:05 Hct 40.3 % (35.5-45.6) 02/14/21 10:05 MCV 84 fl (84-94) 02/14/21 10:05 MCH 28 pg (28-32) 02/14/21 10:05 MCHC 33 % (32-34) 02/14/21 10:05 RDW 16.0 % (13.2-15.2) H 02/14/21 10:05 Plt Count 354 K/mm3 (140-440) 02/14/21 10:05 Lymph % (Auto) 8.6 % (13.4-35.0) L 02/13/21 16:14 [place] % (Auto) 6.1 % (0.0-7.3) 02/13/21 16:14 Eos % (Auto) 0.3 % (0.0-4.3) 02/13/21 16:14 Baso % (Auto) 0.7 % (0.0-1.8) 02/13/21 16:14 Lymph # (Auto) 0.6 K/mm3 (1.2-5.4) L 02/13/21 16:14 [place] # (Auto) 0.4 K/mm3 (0.0-0.8) 02/13/21 16:14 Eos # (Auto) 0.0 K/mm3 (0.0-0.4) 02/13/21 16:14 Baso # (Auto) 0.0 K/mm3 (0.0-0.1) 02/13/21 16:14 Add Manual Diff Complete 02/14/21 10:05 Total Counted 100 02/14/21 10:05 Seg Neutrophils % Sod Cutter 02/14/21 10:05 Seg Neuts % (Manual) 83.0 % (40.0-70.0) H 02/14/21 10:05 Lymphocytes % (Manual) 13.0 % (13.4-35.0) L 02/14/21 10:05 Monocytes % (Manual) 3.0 % (0.0-7.3) 02/14/21 10:05 Myelocytes % 1.0 % 02/14/21 10:05 Nucleated RBC % Not Reportable 02/14/21 10:05 Seg Neutrophils # 6.0 K/mm3 (1.8-7.7) 02/13/21 16:14 Seg Neutrophils # Man 6.9 K/mm3 (1.8-7.7) 02/14/21 10:05 Band Neutrophils # 0.0 K/mm3 02/14/21 10:05 Lymphocytes # (Manual) 1.1 K/mm3 (1.2-5.4) L 02/14/21 10:05 Abs React Lymphs (Man) 0.0 K/mm3 02/14/21 10:05 Monocytes # (Manual) 0.2 K/mm3 (0.0-0.8) 02/14/21 10:05 Eosinophils # (Manual) 0.0 K/mm3 (0.0-0.4) 02/14/21 10:05 Basophils # (Manual) 0.0 K/mm3 (0.0-0.1) 02/14/21 10:05 Metamyelocytes # 0.0 K/mm3 02/14/21 10:05 Myelocytes # 0.1 K/mm3 02/14/21 10:05 Promyelocytes # 0.0 K/mm3 02/14/21 10:05 Blast Cells # 0.0 K/mm3 02/14/21 10:05 WBC Morphology Not Reportable 02/14/21 10:05 Hypersegmented Neuts Not Reportable 02/14/21 10:05 Hyposegmented Neuts Not Reportable 02/14/21 10:05 Hypogranular Neuts Not Reportable 02/14/21 10:05 Smudge Cells Not Reportable 02/14/21 10:05 Toxic Granulation Not Reportable 02/14/21 10:05 Toxic Vacuolation Not Reportable 02/14/21 10:05 Dohle Bodies Not Reportable 02/14/21 10:05 Pelger-Huet Anomaly Not Reportable 02/14/21 10:05 Timothy Rods Not Reportable 02/14/21 10:05 Platelet Estimate Consistent w auto 02/14/21 10:05 Clumped Platelets Not Reportable 02/14/21 10:05 Plt Clumps, EDTA Not Reportable 02/14/21 10:05 Large Platelets Not Reportable 02/14/21 10:05 Giant Platelets Not Reportable 02/14/21 10:05 Platelet Satelliting Not Reportable 02/14/21 10:05 Plt Morphology Comment Not Reportable 02/14/21 10:05 RBC Morphology Normal 02/14/21 10:05 Dimorphic RBCs Not Reportable 02/14/21 10:05 Polychromasia Not Reportable 02/14/21 10:05 Hypochromasia Not Reportable 02/14/21 10:05 Poikilocytosis Not Reportable 02/14/21 10:05 Anisocytosis Not Reportable 02/14/21 10:05 Microcytosis Not Reportable 02/14/21 10:05 Macrocytosis Not Reportable 02/14/21 10:05 Spherocytes Not Reportable 02/14/21 10:05 Pappenheimer Bodies Not Reportable 02/14/21 10:05 Sickle Cells Not Reportable 02/14/21 10:05 Target Cells Not Reportable 02/14/21 10:05 Tear Drop Cells Not Reportable 02/14/21 10:05 Ovalocytes Not Reportable 02/14/21 10:05 Helmet Cells Not Reportable 02/14/21 10:05 Nuñez-Blandon Bodies Not Reportable 02/14/21 10:05 [place] Rings Not Reportable 02/14/21 10:05 [place] Cells Not Reportable 02/14/21 10:05 Bite Cells Not Reportable 02/14/21 10:05 Crenated Cell Not Reportable 02/14/21 10:05 Elliptocytes Not Reportable 02/14/21 10:05 Acanthocytes (Spur) Not Reportable 02/14/21 10:05 Rouleaux Not Reportable 02/14/21 10:05 Hemoglobin C Crystals Not Reportable 02/14/21 10:05 Schistocytes Not Reportable 02/14/21 10:05 Malaria parasites Not Reportable 02/14/21 10:05 Gasper Bodies Not Reportable 02/14/21 10:05 Hem Pathologist Commnt No 02/14/21 10:05 PT 16.9 Sec. (12.2-14.9) H 02/13/21 16:13 INR 1.32 (0.87-1.13) H 02/13/21 16:13 D-Dimer 4286.34 ng/mlDDU (0-234) H 02/15/21 07:29 Sodium 135 mmol/L (137-145) L 02/15/21 07:29 Potassium 4.3 mmol/L (3.6-5.0) 02/15/21 07:29 Chloride 103.7 mmol/L (98-107) 02/15/21 07:29 Carbon Dioxide 20 mmol/L (22-30) L 02/15/21 07:29 Anion Gap 16 mmol/L 02/15/21 07:29 BUN 22 mg/dL (9-20) H 02/15/21 07:29 Creatinine 0.8 mg/dL (0.8-1.3) 02/15/21 07:29 Estimated GFR > 60 ml/min 02/15/21 07:29 BUN/Creatinine Ratio 28 % 02/15/21 07:29 Glucose 91 mg/dL (75-100) 02/15/21 07:29 Hemoglobin A1c 6.7 % (4-6) H 02/14/21 10:05 Calcium 9.0 mg/dL (8.4-10.2) 02/15/21 07:29 Ferritin 1427.0 ng/mL (30.0-300.0) H 02/13/21 16:13 Total Bilirubin 0.30 mg/dL (0.1-1.2) 02/15/21 07:29 AST 140 units/L (5-40) H 02/15/21 07:29 ALT 145 units/L (7-56) H 02/15/21 07:29 Alkaline Phosphatase 147 units/L (35-129) H 02/15/21 07:29 Lactate Dehydrogenase 443 units/L (91-180) H 02/13/21 16:14 Troponin T < 0.010 ng/mL (0.00-0.029) 02/13/21 16:14 C-Reactive Protein 7.70 mg/dL (0.00-1.30) H 02/15/21 07:29 NT-Pro-B Natriuret Pep 236.4 pg/mL (0-900) 02/13/21 16:14 Total Protein 6.4 g/dL (6.3-8.2) 02/15/21 07:29 Albumin 2.6 g/dL (3.9-5) L 02/15/21 07:29 Albumin/Globulin Ratio 0.7 % 02/15/21 07:29 Procalcitonin 4.92 ng/mL (<0.15) 02/13/21 16:13 Coronavirus (PCR) Positive (Negative) A 02/13/21 08:30 Hepatitis A IgM Ab Non-reactive (NonReactive) 02/14/21 10:05 Hep Bs Antigen Non-reactive (Negative) 02/14/21 10:05 Hep B Core IgM Ab Reactive (NonReactive) A 02/14/21 10:05 Hepatitis C Antibody Non-reactive (NonReactive) 02/14/21 10:05 Microbiology: Microbiology 02/13/21 16:13 Peripheral/Venous Blood Culture - Preliminary NO GROWTH AFTER 24 HOURS 02/13/21 16:13 Peripheral/Venous Blood Culture - Preliminary NO GROWTH AFTER 24 HOURS Santos/IV: Voiding Method Urinal Active Medications - Current Medications Current Medications: Generic Name Dose Route Start Last Admin Trade Name Freq PRN Reason Stop Dose Admin Acetaminophen 650 mg 02/13/21 21:48 Acetaminophen 325 Mg Tab PO Q4H PRN Pain MILD(1-3)/Fever >100.5/SALAS Hydrocodone Bitart/Acetaminophen 1 each 02/13/21 21:52 Hydrocodone/Acetaminophen 7.5-325mg Tab PO Q6H PRN Pain , Severe (7-10) Ascorbic Acid 1,000 mg 02/14/21 22:00 02/15/21 09:25 Ascorbic Acid 500 Mg Tab PO 1,000 mg BID ALIN Administration Cholecalciferol 5,000 unit 02/14/21 18:00 02/15/21 09:25 Cholecalciferol (Vit D3) 5,000 Unit Tab PO 5,000 unit DAILY ALIN Administration Dexamethasone 8 mg 02/14/21 10:00 02/15/21 09:30 Dexamethasone 4 Mg/Ml Vial IV 02/22/21 10:01 8 mg Q24H ALIN Administration Docusate Sodium 100 mg 02/13/21 22:00 02/15/21 09:25 Docusate Sodium 100 Mg Cap PO 100 mg BID ALIN Administration Enoxaparin Sodium 40 mg 02/13/21 22:00 02/14/21 22:08 Enoxaparin 40 Mg/0.4 Ml Inj SUB-Q 40 mg QDAY@2200 ALIN Administration Gabapentin 300 mg 02/13/21 22:00 02/15/21 05:38 Gabapentin 300 Mg Cap PO 300 mg Q8HR ALIN Administration Hydromorphone HCl 0.5 mg 02/13/21 21:48 Hydromorphone 1 Mg/1 Ml Inj IV Q3H PRN Pain , Severe (7-10) Azithromycin 500 mg in 250 mls @ 250 mls/hr 02/14/21 10:00 02/14/21 11:29 Zithromax/Ns IV 02/17/21 10:59 Infused Q24H ALIN Infusion Ceftriaxone Sodium 2 gm in 100 mls @ 200 mls/hr 02/14/21 10:00 02/15/21 09:25 Rocephin/Ns 2 Gm/100 Ml IV 02/17/21 12:00 200 mls/hr Q24HR ALIN Administration Protocol REMDESIVIR 100 mg/ Sodium 250 mls @ 500 mls/hr 02/15/21 21:00 Chloride IV 02/18/21 21:29 Q24HR@2100 ALIN Metoclopramide HCl 10 mg 02/13/21 21:48 Metoclopramide 10 Mg/2 Ml Inj IV Q6H PRN Nausea And Vomiting Ondansetron HCl 4 mg 02/13/21 21:48 Ondansetron 4 Mg/2 Ml Inj IV Q8H PRN Nausea And Vomiting Pantoprazole Sodium 40 mg 02/14/21 07:30 02/15/21 09:25 Pantoprazole 40 Mg Tab PO 40 mg QDAC ALIN Administration Sodium Chloride 10 ml 02/13/21 22:00 02/15/21 09:25 Sodium Chloride 0.9% 10 Ml Flush Syringe IV 10 ml BID ALIN Administration Sodium Chloride 10 ml 02/13/21 21:48 Sodium Chloride 0.9% 10 Ml Flush Syringe IV PRN PRN LINE FLUSH Sodium Chloride 50 ml 02/14/21 15:00 02/14/21 15:56 Sodium Chloride 0.9% 50 Ml Ivpb IV 02/18/21 21:01 50 ml Q24HR@2100 ALIN Administration Zinc Sulfate 220 mg 02/14/21 22:00 02/15/21 09:25 Zinc Sulfate 220 Mg Cap PO 220 mg BID ALIN Administration
[2021-02-15] MEDS: AZITHROMYCIN/NS 500 MG/250 ML 500 MG/250 ML BAG IV SCH (13:33)
[2021-02-15] MEDS: ENOXAPARIN 40 MG/0.4 ML INJ SUB-Q SCH (22:18)
[2021-02-15] MEDS: REMDESIVIR 100 MG in SODIUM CHLORIDE 0.9% 250ML 250 ML IV SCH (22:20)
[2021-02-15] MEDS: SODIUM CHLORIDE 0.9% 50 ML IVPB IV SCH (22:20)
[2021-02-16] MEDS: GABAPENTIN 300 MG CAP PO SCH ×3 (06:27→22:55)
[2021-02-16 07:44] LABS: Alanine Aminotransferase 126 units/L (7-56); Albumin 2.6 g/dL (3.9-5); BUN/Creatinine Ratio 19; Blood Urea Nitrogen 17 mg/dL (9-20); Calcium 8.2 mg/dL (8.4-10.2); Hemolysis Index 17
[2021-02-16] MEDS: DOCUSATE SODIUM 100 MG CAP PO SCH ×2 (09:57→22:55)
[2021-02-16] MEDS: CHOLECALCIFEROL (VIT D3) 5,000 UNIT TAB PO SCH (09:57)
[2021-02-16] MEDS: ZINC SULFATE 220 MG CAP PO SCH ×2 (09:58→22:55)
[2021-02-16] MEDS: cefTRIAXone/NS 2 GM/100 ML 2 GM/100 ML BAG IV SCH (09:58)
[2021-02-16] MEDS: ASCORBIC ACID 500 MG TAB PO SCH ×2 (09:58→22:55)
[2021-02-16] MEDS: PANTOPRAZOLE 40 MG TAB PO SCH (10:01)
[2021-02-16] MEDS: dexAMETHasone 4 MG/ML VIAL IV SCH (10:02)
[2021-02-16] MEDS: AZITHROMYCIN/NS 500 MG/250 ML 500 MG/250 ML BAG IV SCH (11:04)
--- NOTE | 2021-02-16 11:09 | Progress Note ---
Assessment and Plan - Patient Problems (1) Acute respiratory failure with hypoxia Current Visit: Yes Status: Acute Plan to address problem: Supplemental oxygen, pulse oximetry, nebulizer therapy, noninvasive positive pressure ventilation as clinically indicated. (2) Bilateral pneumonia Current Visit: Yes Status: Acute Qualifiers: Pneumonia type: due to unspecified organism Lung location: unspecified part of lung Qualified Code(s): J18.9 - Pneumonia, unspecified organism Plan to address problem: Pneumonia protocol: IV antibiotic therapy, supplemental oxygen, pulse oximetry, blood culture. (3) SIRS (systemic inflammatory response syndrome) Current Visit: Yes Status: Acute Plan to address problem: IV antibiotic therapy, IV steroid therapy, supplemental oxygen, pulse oximetry, proposition while in bed, vitamin C therapy, vitamin D therapy, zinc therapy. (4) Suspected COVID-19 virus infection Current Visit: Yes Status: Acute (5) DVT prophylaxis Current Visit: Yes Status: Acute Plan to address problem: SCD to bilateral lower extremities while in bed, prophylactic anticoagulation (6) Advance care planning Current Visit: Yes Status: Acute Plan to address problem: Disease education conducted, care plan discussed, diagnosis discussed, prognosis discussed, patient knowledges understanding and agreement with care plan, +30 minutes. History Interval history: 65 YO Male HD#3 with systemic inflammatory response syndrome, acute respiratory failure with hypoxemia, bilateral pneumonia, coronavirus infection. Patient resting comfortably in bed. No reported nursing events overnight. Patient denies pain. Patient knowledges continued shortness of breath. Hospitalist Physical - Constitutional Vitals: Temp Pulse Resp BP Pulse Ox 97.8 F 62 20 134/80 92 02/16/21 04:30 02/16/21 04:30 02/16/21 04:30 02/16/21 04:30 02/16/21 04:30 General appearance: Present: mild distress, well-nourished - EENT Eyes: Present: PERRL ENT: hearing intact - Neck Neck: Present: supple - Respiratory Respiratory: bilateral: diminished - Cardiovascular Rhythm: regular Heart Sounds: Present: S1 & S2 - Extremities Extremities: no ischemia Peripheral Pulses: within normal limits - Abdominal General gastrointestinal: soft, non-tender, non-distended - Integumentary Integumentary: Present: clear, dry - Psychiatric Psychiatric: appropriate mood/affect, cooperative - Neurologic Neurologic: CNII-XII intact HEART Score - HEART Score Troponin: Troponin T < 0.010 ng/mL (0.00-0.029) 02/13/21 16:14 Results - Labs CBC & Chem 7: 02/14/21 10:05 02/16/21 06:18 Labs: Laboratory Last Values WBC 8.3 K/mm3 (4.5-11.0) 02/14/21 10:05 RBC 4.82 M/mm3 (3.65-5.03) 02/14/21 10:05 Hgb 13.3 gm/dl (11.8-15.2) 02/14/21 10:05 Hct 40.3 % (35.5-45.6) 02/14/21 10:05 MCV 84 fl (84-94) 02/14/21 10:05 MCH 28 pg (28-32) 02/14/21 10:05 MCHC 33 % (32-34) 02/14/21 10:05 RDW 16.0 % (13.2-15.2) H 02/14/21 10:05 Plt Count 354 K/mm3 (140-440) 02/14/21 10:05 Lymph % (Auto) 8.6 % (13.4-35.0) L 02/13/21 16:14 [place] % (Auto) 6.1 % (0.0-7.3) 02/13/21 16:14 Eos % (Auto) 0.3 % (0.0-4.3) 02/13/21 16:14 Baso % (Auto) 0.7 % (0.0-1.8) 02/13/21 16:14 Lymph # (Auto) 0.6 K/mm3 (1.2-5.4) L 02/13/21 16:14 [place] # (Auto) 0.4 K/mm3 (0.0-0.8) 02/13/21 16:14 Eos # (Auto) 0.0 K/mm3 (0.0-0.4) 02/13/21 16:14 Baso # (Auto) 0.0 K/mm3 (0.0-0.1) 02/13/21 16:14 Add Manual Diff Complete 02/14/21 10:05 Total Counted 100 02/14/21 10:05 Seg Neutrophils % [employer] 02/14/21 10:05 Seg Neuts % (Manual) 83.0 % (40.0-70.0) H 02/14/21 10:05 Lymphocytes % (Manual) 13.0 % (13.4-35.0) L 02/14/21 10:05 Monocytes % (Manual) 3.0 % (0.0-7.3) 02/14/21 10:05 Myelocytes % 1.0 % 02/14/21 10:05 Nucleated RBC % Not Reportable 02/14/21 10:05 Seg Neutrophils # 6.0 K/mm3 (1.8-7.7) 02/13/21 16:14 Seg Neutrophils # Man 6.9 K/mm3 (1.8-7.7) 02/14/21 10:05 Band Neutrophils # 0.0 K/mm3 02/14/21 10:05 Lymphocytes # (Manual) 1.1 K/mm3 (1.2-5.4) L 02/14/21 10:05 Abs React Lymphs (Man) 0.0 K/mm3 02/14/21 10:05 Monocytes # (Manual) 0.2 K/mm3 (0.0-0.8) 02/14/21 10:05 Eosinophils # (Manual) 0.0 K/mm3 (0.0-0.4) 02/14/21 10:05 Basophils # (Manual) 0.0 K/mm3 (0.0-0.1) 02/14/21 10:05 Metamyelocytes # 0.0 K/mm3 02/14/21 10:05 Myelocytes # 0.1 K/mm3 02/14/21 10:05 Promyelocytes # 0.0 K/mm3 02/14/21 10:05 Blast Cells # 0.0 K/mm3 02/14/21 10:05 WBC Morphology Not Reportable 02/14/21 10:05 Hypersegmented Neuts Not Reportable 02/14/21 10:05 Hyposegmented Neuts Not Reportable 02/14/21 10:05 Hypogranular Neuts Not Reportable 02/14/21 10:05 Smudge Cells Not Reportable 02/14/21 10:05 Toxic Granulation Not Reportable 02/14/21 10:05 Toxic Vacuolation Not Reportable 02/14/21 10:05 Dohle Bodies Not Reportable 02/14/21 10:05 Pelger-Huet Anomaly Not Reportable 02/14/21 10:05 Timothy Rods Not Reportable 02/14/21 10:05 Platelet Estimate Consistent w auto 02/14/21 10:05 Clumped Platelets Not Reportable 02/14/21 10:05 Plt Clumps, EDTA Not Reportable 02/14/21 10:05 Large Platelets Not Reportable 02/14/21 10:05 Giant Platelets Not Reportable 02/14/21 10:05 Platelet Satelliting Not Reportable 02/14/21 10:05 Plt Morphology Comment Not Reportable 02/14/21 10:05 RBC Morphology Normal 02/14/21 10:05 Dimorphic RBCs Not Reportable 02/14/21 10:05 Polychromasia Not Reportable 02/14/21 10:05 Hypochromasia Not Reportable 02/14/21 10:05 Poikilocytosis Not Reportable 02/14/21 10:05 Anisocytosis Not Reportable 02/14/21 10:05 Microcytosis Not Reportable 02/14/21 10:05 Macrocytosis Not Reportable 02/14/21 10:05 Spherocytes Not Reportable 02/14/21 10:05 Pappenheimer Bodies Not Reportable 02/14/21 10:05 Sickle Cells Not Reportable 02/14/21 10:05 Target Cells Not Reportable 02/14/21 10:05 Tear Drop Cells Not Reportable 02/14/21 10:05 Ovalocytes Not Reportable 02/14/21 10:05 Helmet Cells Not Reportable 02/14/21 10:05 Nuñez-Radom Bodies Not Reportable 02/14/21 10:05 [place] Rings Not Reportable 02/14/21 10:05 [place] Cells Not Reportable 02/14/21 10:05 Bite Cells Not Reportable 02/14/21 10:05 Crenated Cell Not Reportable 02/14/21 10:05 Elliptocytes Not Reportable 02/14/21 10:05 Acanthocytes (Spur) Not Reportable 02/14/21 10:05 Rouleaux Not Reportable 02/14/21 10:05 Hemoglobin C Crystals Not Reportable 02/14/21 10:05 Schistocytes Not Reportable 02/14/21 10:05 Malaria parasites Not Reportable 02/14/21 10:05 Gasper Bodies Not Reportable 02/14/21 10:05 Hem Pathologist Commnt No 02/14/21 10:05 PT 16.9 Sec. (12.2-14.9) H 02/13/21 16:13 INR 1.32 (0.87-1.13) H 02/13/21 16:13 D-Dimer 4286.34 ng/mlDDU (0-234) H 02/15/21 07:29 Sodium 137 mmol/L (137-145) 02/16/21 06:18 Potassium 4.4 mmol/L (3.6-5.0) 02/16/21 06:18 Chloride 106.3 mmol/L (98-107) 02/16/21 06:18 Carbon Dioxide 20 mmol/L (22-30) L 02/16/21 06:18 Anion Gap 15 mmol/L 02/16/21 06:18 BUN 17 mg/dL (9-20) 02/16/21 06:18 Creatinine 0.9 mg/dL (0.8-1.3) 02/16/21 06:18 Estimated GFR > 60 ml/min 02/16/21 06:18 BUN/Creatinine Ratio 19 % 02/16/21 06:18 Glucose 82 mg/dL (75-100) 02/16/21 06:18 Hemoglobin A1c 6.7 % (4-6) H 02/14/21 10:05 Calcium 8.2 mg/dL (8.4-10.2) L 02/16/21 06:18 Ferritin 1427.0 ng/mL (30.0-300.0) H 02/13/21 16:13 Total Bilirubin 0.30 mg/dL (0.1-1.2) 02/16/21 06:18 AST 63 units/L (5-40) H 02/16/21 06:18 ALT 126 units/L (7-56) H 02/16/21 06:18 Alkaline Phosphatase 145 units/L (35-129) H 02/16/21 06:18 Lactate Dehydrogenase 443 units/L (91-180) H 02/13/21 16:14 Troponin T < 0.010 ng/mL (0.00-0.029) 02/13/21 16:14 C-Reactive Protein 7.70 mg/dL (0.00-1.30) H 02/15/21 07:29 NT-Pro-B Natriuret Pep 236.4 pg/mL (0-900) 02/13/21 16:14 Total Protein 6.6 g/dL (6.3-8.2) 02/16/21 06:18 Albumin 2.6 g/dL (3.9-5) L 02/16/21 06:18 Albumin/Globulin Ratio 0.7 % 02/16/21 06:18 Procalcitonin 1.49 ng/mL (<0.15) 02/15/21 07:29 Coronavirus (PCR) Positive (Negative) A 02/13/21 08:30 Hepatitis A IgM Ab Non-reactive (NonReactive) 02/14/21 10:05 Hep Bs Antigen Non-reactive (Negative) 02/14/21 10:05 Hep B Core IgM Ab Reactive (NonReactive) A 02/14/21 10:05 Hepatitis C Antibody Non-reactive (NonReactive) 02/14/21 10:05 Microbiology: Microbiology 02/13/21 16:13 Peripheral/Venous Blood Culture - Preliminary NO GROWTH AFTER 48 HOURS 02/13/21 16:13 Peripheral/Venous Blood Culture - Preliminary NO GROWTH AFTER 48 HOURS Santos/IV: Voiding Method Urinal Active Medications - Current Medications Current Medications: Generic Name Dose Route Start Last Admin Trade Name Freq PRN Reason Stop Dose Admin Acetaminophen 650 mg 02/13/21 21:48 Acetaminophen 325 Mg Tab PO Q4H PRN Pain MILD(1-3)/Fever >100.5/SALAS Hydrocodone Bitart/Acetaminophen 1 each 02/13/21 21:52 Hydrocodone/Acetaminophen 7.5-325mg Tab PO Q6H PRN Pain , Severe (7-10) Ascorbic Acid 1,000 mg 02/14/21 22:00 02/16/21 09:58 Ascorbic Acid 500 Mg Tab PO 1,000 mg BID ALIN Administration Cholecalciferol 5,000 unit 02/14/21 18:00 02/16/21 09:57 Cholecalciferol (Vit D3) 5,000 Unit Tab PO 5,000 unit DAILY ALIN Administration Dexamethasone 8 mg 02/14/21 10:00 02/16/21 10:02 Dexamethasone 4 Mg/Ml Vial IV 02/22/21 10:01 8 mg Q24H ALIN Administration Docusate Sodium 100 mg 02/13/21 22:00 02/16/21 09:57 Docusate Sodium 100 Mg Cap PO 100 mg BID ALIN Administration Enoxaparin Sodium 40 mg 02/13/21 22:00 02/15/21 22:18 Enoxaparin 40 Mg/0.4 Ml Inj SUB-Q 40 mg QDAY@2200 ALIN Administration Gabapentin 300 mg 02/13/21 22:00 02/16/21 06:27 Gabapentin 300 Mg Cap PO 300 mg Q8HR ALIN Administration Hydromorphone HCl 0.5 mg 02/13/21 21:48 Hydromorphone 1 Mg/1 Ml Inj IV Q3H PRN Pain , Severe (7-10) Azithromycin 500 mg in 250 mls @ 250 mls/hr 02/14/21 10:00 02/16/21 11:04 Zithromax/Ns IV 02/17/21 10:59 250 mls/hr Q24H ALIN Administration Ceftriaxone Sodium 2 gm in 100 mls @ 200 mls/hr 02/14/21 10:00 02/16/21 09:58 Rocephin/Ns 2 Gm/100 Ml IV 02/17/21 12:00 200 mls/hr Q24HR ALIN Administration Protocol REMDESIVIR 100 mg/ Sodium 250 mls @ 500 mls/hr 02/15/21 21:00 02/15/21 22:20 Chloride IV 02/18/21 21:29 500 mls/hr Q24HR@2100 ALIN Administration Metoclopramide HCl 10 mg 02/13/21 21:48 Metoclopramide 10 Mg/2 Ml Inj IV Q6H PRN Nausea And Vomiting Ondansetron HCl 4 mg 02/13/21 21:48 Ondansetron 4 Mg/2 Ml Inj IV Q8H PRN Nausea And Vomiting Pantoprazole Sodium 40 mg 02/14/21 07:30 02/16/21 10:01 Pantoprazole 40 Mg Tab PO 40 mg QDAC ALIN Administration Sodium Chloride 10 ml 02/13/21 22:00 02/16/21 09:58 Sodium Chloride 0.9% 10 Ml Flush Syringe IV 10 ml BID ALIN Administration Sodium Chloride 10 ml 02/13/21 21:48 Sodium Chloride 0.9% 10 Ml Flush Syringe IV PRN PRN LINE FLUSH Sodium Chloride 50 ml 02/14/21 15:00 02/15/21 22:20 Sodium Chloride 0.9% 50 Ml Ivpb IV 02/18/21 21:01 50 ml Q24HR@2100 ALIN Administration Zinc Sulfate 220 mg 02/14/21 22:00 02/16/21 09:58 Zinc Sulfate 220 Mg Cap PO 220 mg BID ALIN Administration
[2021-02-16] MEDS: SODIUM CHLORIDE 0.9% 50 ML IVPB IV SCH (22:54)
[2021-02-16] MEDS: REMDESIVIR 100 MG in SODIUM CHLORIDE 0.9% 250ML 250 ML IV SCH (22:54)
[2021-02-16] MEDS: ENOXAPARIN 40 MG/0.4 ML INJ SUB-Q SCH (22:55)
[2021-02-17] MEDS: GABAPENTIN 300 MG CAP PO SCH ×3 (05:43→22:37)
[2021-02-17 07:45] LABS: Alanine Aminotransferase 96 units/L (7-56); Albumin 2.7 g/dL (3.9-5); BUN/Creatinine Ratio 17; Blood Urea Nitrogen 15 mg/dL (9-20); Calcium 8.7 mg/dL (8.4-10.2); Hemolysis Index 1
[2021-02-17] MEDS: PANTOPRAZOLE 40 MG TAB PO SCH (08:08)
--- NOTE | 2021-02-17 09:30 | Progress Note ---
Assessment and Plan Assessment and plan: (1) Acute respiratory failure with hypoxia Supplemental oxygen, pulse oximetry, nebulizer therapy, noninvasive positive pressure ventilation as clinically indicated. (2) Bilateral pneumonia Pneumonia protocol: IV antibiotic therapy, supplemental oxygen, pulse oximetry, blood culture. (3) SIRS (systemic inflammatory response syndrome) Patient does not meet criteria for sepsis given normal WBC, no tachycardia, AMS or fever on admission. (4) COVID-19 virus infection Covid PCR positive on 02/13. Continue dexamethasone and remdesivir. Continue to follow of anti-inflammatory markers. (5) DVT prophylaxis SCD to bilateral lower extremities while in bed, prophylactic anticoagulation History Interval history: 65 YO Male HD#3 with systemic inflammatory response syndrome, acute respiratory failure with hypoxemia, bilateral pneumonia, coronavirus infection. Patient resting comfortably in bed. No reported nursing events overnight. Patient denies pain. Patient reports continued shortness of breath. Hospitalist Physical - Constitutional Vitals: Temp Pulse Resp BP Pulse Ox 98.8 F 86 18 151/86 94 02/17/21 04:28 02/17/21 04:28 02/17/21 04:28 02/17/21 04:28 02/17/21 04:28 General appearance: Present: mild distress, well-nourished - EENT Eyes: Present: PERRL, EOM intact ENT: hearing intact, clear oral mucosa, dentition normal - Neck Neck: Present: supple, normal ROM - Respiratory Respiratory effort: normal Respiratory: bilateral: CTA - Cardiovascular Rhythm: regular Heart Sounds: Present: S1 & S2. Absent: gallop, rub - Extremities Extremities: no ischemia, No edema, Full ROM - Abdominal General gastrointestinal: soft, non-tender, non-distended, normal bowel sounds - Integumentary Integumentary: Present: clear, warm, dry - Neurologic Neurologic: CNII-XII intact, moves all extremities HEART Score - HEART Score Troponin: Troponin T < 0.010 ng/mL (0.00-0.029) 02/13/21 16:14 Results - Labs CBC & Chem 7: 02/14/21 10:05 02/17/21 06:39 Labs: Laboratory Last Values WBC 8.3 K/mm3 (4.5-11.0) 02/14/21 10:05 RBC 4.82 M/mm3 (3.65-5.03) 02/14/21 10:05 Hgb 13.3 gm/dl (11.8-15.2) 02/14/21 10:05 Hct 40.3 % (35.5-45.6) 02/14/21 10:05 MCV 84 fl (84-94) 02/14/21 10:05 MCH 28 pg (28-32) 02/14/21 10:05 MCHC 33 % (32-34) 02/14/21 10:05 RDW 16.0 % (13.2-15.2) H 02/14/21 10:05 Plt Count 354 K/mm3 (140-440) 02/14/21 10:05 Lymph % (Auto) 8.6 % (13.4-35.0) L 02/13/21 16:14 [place] % (Auto) 6.1 % (0.0-7.3) 02/13/21 16:14 Eos % (Auto) 0.3 % (0.0-4.3) 02/13/21 16:14 Baso % (Auto) 0.7 % (0.0-1.8) 02/13/21 16:14 Lymph # (Auto) 0.6 K/mm3 (1.2-5.4) L 02/13/21 16:14 [place] # (Auto) 0.4 K/mm3 (0.0-0.8) 02/13/21 16:14 Eos # (Auto) 0.0 K/mm3 (0.0-0.4) 02/13/21 16:14 Baso # (Auto) 0.0 K/mm3 (0.0-0.1) 02/13/21 16:14 Add Manual Diff Complete 02/14/21 10:05 Total Counted 100 02/14/21 10:05 Seg Neutrophils % Fertilizer Supervisor 02/14/21 10:05 Seg Neuts % (Manual) 83.0 % (40.0-70.0) H 02/14/21 10:05 Lymphocytes % (Manual) 13.0 % (13.4-35.0) L 02/14/21 10:05 Monocytes % (Manual) 3.0 % (0.0-7.3) 02/14/21 10:05 Myelocytes % 1.0 % 02/14/21 10:05 Nucleated RBC % Not Reportable 02/14/21 10:05 Seg Neutrophils # 6.0 K/mm3 (1.8-7.7) 02/13/21 16:14 Seg Neutrophils # Man 6.9 K/mm3 (1.8-7.7) 02/14/21 10:05 Band Neutrophils # 0.0 K/mm3 02/14/21 10:05 Lymphocytes # (Manual) 1.1 K/mm3 (1.2-5.4) L 02/14/21 10:05 Abs React Lymphs (Man) 0.0 K/mm3 02/14/21 10:05 Monocytes # (Manual) 0.2 K/mm3 (0.0-0.8) 02/14/21 10:05 Eosinophils # (Manual) 0.0 K/mm3 (0.0-0.4) 02/14/21 10:05 Basophils # (Manual) 0.0 K/mm3 (0.0-0.1) 02/14/21 10:05 Metamyelocytes # 0.0 K/mm3 02/14/21 10:05 Myelocytes # 0.1 K/mm3 02/14/21 10:05 Promyelocytes # 0.0 K/mm3 02/14/21 10:05 Blast Cells # 0.0 K/mm3 02/14/21 10:05 WBC Morphology Not Reportable 02/14/21 10:05 Hypersegmented Neuts Not Reportable 02/14/21 10:05 Hyposegmented Neuts Not Reportable 02/14/21 10:05 Hypogranular Neuts Not Reportable 02/14/21 10:05 Smudge Cells Not Reportable 02/14/21 10:05 Toxic Granulation Not Reportable 02/14/21 10:05 Toxic Vacuolation Not Reportable 02/14/21 10:05 Dohle Bodies Not Reportable 02/14/21 10:05 Pelger-Huet Anomaly Not Reportable 02/14/21 10:05 Timothy Rods Not Reportable 02/14/21 10:05 Platelet Estimate Consistent w auto 02/14/21 10:05 Clumped Platelets Not Reportable 02/14/21 10:05 Plt Clumps, EDTA Not Reportable 02/14/21 10:05 Large Platelets Not Reportable 02/14/21 10:05 Giant Platelets Not Reportable 02/14/21 10:05 Platelet Satelliting Not Reportable 02/14/21 10:05 Plt Morphology Comment Not Reportable 02/14/21 10:05 RBC Morphology Normal 02/14/21 10:05 Dimorphic RBCs Not Reportable 02/14/21 10:05 Polychromasia Not Reportable 02/14/21 10:05 Hypochromasia Not Reportable 02/14/21 10:05 Poikilocytosis Not Reportable 02/14/21 10:05 Anisocytosis Not Reportable 02/14/21 10:05 Microcytosis Not Reportable 02/14/21 10:05 Macrocytosis Not Reportable 02/14/21 10:05 Spherocytes Not Reportable 02/14/21 10:05 Pappenheimer Bodies Not Reportable 02/14/21 10:05 Sickle Cells Not Reportable 02/14/21 10:05 Target Cells Not Reportable 02/14/21 10:05 Tear Drop Cells Not Reportable 02/14/21 10:05 Ovalocytes Not Reportable 02/14/21 10:05 Helmet Cells Not Reportable 02/14/21 10:05 [place] Bodies Not Reportable 02/14/21 10:05 [place] Rings Not Reportable 02/14/21 10:05 [place] Cells Not Reportable 02/14/21 10:05 Bite Cells Not Reportable 02/14/21 10:05 Crenated Cell Not Reportable 02/14/21 10:05 Elliptocytes Not Reportable 02/14/21 10:05 Acanthocytes (Spur) Not Reportable 02/14/21 10:05 Rouleaux Not Reportable 02/14/21 10:05 Hemoglobin C Crystals Not Reportable 02/14/21 10:05 Schistocytes Not Reportable 02/14/21 10:05 Malaria parasites Not Reportable 02/14/21 10:05 [place] Bodies Not Reportable 02/14/21 10:05 Hem Pathologist Commnt No 02/14/21 10:05 PT 16.9 Sec. (12.2-14.9) H 02/13/21 16:13 INR 1.32 (0.87-1.13) H 02/13/21 16:13 D-Dimer 4286.34 ng/mlDDU (0-234) H 02/15/21 07:29 Sodium 138 mmol/L (137-145) 02/17/21 06:39 Potassium 4.2 mmol/L (3.6-5.0) 02/17/21 06:39 Chloride 104.7 mmol/L (98-107) 02/17/21 06:39 Carbon Dioxide 25 mmol/L (22-30) 02/17/21 06:39 Anion Gap 13 mmol/L 02/17/21 06:39 BUN 15 mg/dL (9-20) 02/17/21 06:39 Creatinine 0.9 mg/dL (0.8-1.3) 02/17/21 06:39 Estimated GFR > 60 ml/min 02/17/21 06:39 BUN/Creatinine Ratio 17 % 02/17/21 06:39 Glucose 100 mg/dL (75-100) 02/17/21 06:39 POC Glucose 152 mg/dL (70-105) H 02/16/21 12:11 Hemoglobin A1c 6.7 % (4-6) H 02/14/21 10:05 Calcium 8.7 mg/dL (8.4-10.2) 02/17/21 06:39 Ferritin 1427.0 ng/mL (30.0-300.0) H 02/13/21 16:13 Total Bilirubin 0.30 mg/dL (0.1-1.2) 02/17/21 06:39 AST 48 units/L (5-40) H 02/17/21 06:39 ALT 96 units/L (7-56) H 02/17/21 06:39 Alkaline Phosphatase 150 units/L (35-129) H 02/17/21 06:39 Lactate Dehydrogenase 443 units/L (91-180) H 02/13/21 16:14 Troponin T < 0.010 ng/mL (0.00-0.029) 02/13/21 16:14 C-Reactive Protein 7.70 mg/dL (0.00-1.30) H 02/15/21 07:29 NT-Pro-B Natriuret Pep 236.4 pg/mL (0-900) 02/13/21 16:14 Total Protein 6.3 g/dL (6.3-8.2) 02/17/21 06:39 Albumin 2.7 g/dL (3.9-5) L 02/17/21 06:39 Albumin/Globulin Ratio 0.8 % 02/17/21 06:39 Procalcitonin 1.49 ng/mL (<0.15) 02/15/21 07:29 Coronavirus (PCR) Positive (Negative) A 02/13/21 08:30 Hepatitis A IgM Ab Non-reactive (NonReactive) 02/14/21 10:05 Hep Bs Antigen Non-reactive (Negative) 02/14/21 10:05 Hep B Core IgM Ab Reactive (NonReactive) A 02/14/21 10:05 Hepatitis C Antibody Non-reactive (NonReactive) 02/14/21 10:05 Microbiology: Microbiology 02/13/21 16:13 Peripheral/Venous Blood Culture - Preliminary NO GROWTH AFTER 72 HOURS 02/13/21 16:13 Peripheral/Venous Blood Culture - Preliminary NO GROWTH AFTER 72 HOURS Santos/IV: Voiding Method Urinal Active Medications - Current Medications Current Medications: Generic Name Dose Route Start Last Admin Trade Name Freq PRN Reason Stop Dose Admin Acetaminophen 650 mg 02/13/21 21:48 Acetaminophen 325 Mg Tab PO Q4H PRN Pain MILD(1-3)/Fever >100.5/SALAS Hydrocodone Bitart/Acetaminophen 1 each 02/13/21 21:52 Hydrocodone/Acetaminophen 7.5-325mg Tab PO Q6H PRN Pain , Severe (7-10) Ascorbic Acid 1,000 mg 02/14/21 22:00 02/16/21 22:55 Ascorbic Acid 500 Mg Tab PO 1,000 mg BID ALIN Administration Cholecalciferol 5,000 unit 02/14/21 18:00 02/16/21 09:57 Cholecalciferol (Vit D3) 5,000 Unit Tab PO 5,000 unit DAILY ALIN Administration Dexamethasone 8 mg 02/14/21 10:00 02/16/21 10:02 Dexamethasone 4 Mg/Ml Vial IV 02/22/21 10:01 8 mg Q24H ALIN Administration Docusate Sodium 100 mg 02/13/21 22:00 02/16/21 22:55 Docusate Sodium 100 Mg Cap PO 100 mg BID ALIN Administration Enoxaparin Sodium 40 mg 02/13/21 22:00 02/16/21 22:55 Enoxaparin 40 Mg/0.4 Ml Inj SUB-Q 40 mg QDAY@2200 ALIN Administration Gabapentin 300 mg 02/13/21 22:00 02/17/21 05:43 Gabapentin 300 Mg Cap PO 300 mg Q8HR ALIN Administration Hydromorphone HCl 0.5 mg 02/13/21 21:48 Hydromorphone 1 Mg/1 Ml Inj IV Q3H PRN Pain , Severe (7-10) Azithromycin 500 mg in 250 mls @ 250 mls/hr 02/14/21 10:00 02/16/21 11:04 Zithromax/Ns IV 02/17/21 10:59 250 mls/hr Q24H ALIN Administration Ceftriaxone Sodium 2 gm in 100 mls @ 200 mls/hr 02/14/21 10:00 02/16/21 09:58 Rocephin/Ns 2 Gm/100 Ml IV 02/17/21 12:00 200 mls/hr Q24HR ALIN Administration Protocol REMDESIVIR 100 mg/ Sodium 250 mls @ 500 mls/hr 02/15/21 21:00 02/16/21 22:54 Chloride IV 02/18/21 21:29 500 mls/hr Q24HR@2100 ALIN Administration Metoclopramide HCl 10 mg 02/13/21 21:48 Metoclopramide 10 Mg/2 Ml Inj IV Q6H PRN Nausea And Vomiting Ondansetron HCl 4 mg 02/13/21 21:48 Ondansetron 4 Mg/2 Ml Inj IV Q8H PRN Nausea And Vomiting Pantoprazole Sodium 40 mg 02/14/21 07:30 02/17/21 08:08 Pantoprazole 40 Mg Tab PO 40 mg QDAC ALIN Administration Sodium Chloride 10 ml 02/13/21 22:00 02/16/21 22:54 Sodium Chloride 0.9% 10 Ml Flush Syringe IV 10 ml BID ALIN Administration Sodium Chloride 10 ml 02/13/21 21:48 Sodium Chloride 0.9% 10 Ml Flush Syringe IV PRN PRN LINE FLUSH Sodium Chloride 50 ml 02/14/21 15:00 02/16/21 22:54 Sodium Chloride 0.9% 50 Ml Ivpb IV 02/18/21 21:01 50 ml Q24HR@2100 ALIN Administration Zinc Sulfate 220 mg 02/14/21 22:00 02/16/21 22:55 Zinc Sulfate 220 Mg Cap PO 220 mg BID ALIN Administration
[2021-02-17] MEDS: cefTRIAXone/NS 2 GM/100 ML 2 GM/100 ML BAG IV SCH (09:48)
[2021-02-17] MEDS: CHOLECALCIFEROL (VIT D3) 5,000 UNIT TAB PO SCH (09:48)
[2021-02-17] MEDS: ASCORBIC ACID 500 MG TAB PO SCH ×2 (09:48→22:38)
[2021-02-17] MEDS: ZINC SULFATE 220 MG CAP PO SCH ×2 (09:49→22:37)
[2021-02-17] MEDS: AZITHROMYCIN/NS 500 MG/250 ML 500 MG/250 ML BAG IV SCH (09:52)
[2021-02-17] MEDS: DOCUSATE SODIUM 100 MG CAP PO SCH ×2 (09:52→22:37)
[2021-02-17] MEDS: dexAMETHasone 4 MG/ML VIAL IV SCH (09:54)
--- NOTE | 2021-02-17 10:11 | Progress Note ---
Assessment and Plan Cultures: SARS CoV2 PCR: Positive 02/13/2021 blood culture: no growth Hepatitis B core IgM reactive A/P: 65-year-old male with prostate cancer, and vaccinated for COVID-19 admitted to the hospital with: #Bilateral COVID-19 pneumonia: CTA negative for PE #Acute hypoxic respiratory failure: required NRB in the ER. Now on NC. #Transaminitis: Likely secondary to COVID-19. Hepatitis B core IgM reactive #Hepatitis B serology: Unclear if false positive, surface antigen is negative. F/U Hep B DNA PCR Recs: continue IV/PO Dexamethasone x 10 days continue IV remdesivir x 5 days Due to elevated procalcitonin, cannot rule out bacterial infection, hence not a candidate for Tocilizumab Continue empiric antibiotics for total 5 days prophylactic anticoagulation based on d-dimer per hospital protocol trend ferritin, LDH, d-dimer, CRP every 2-3 days for risk stratification and to assess disease progression f/u Hep B DNA PCR Marie Padgett MD [facility] O: [phone] F: [phone] Subjective Date of service: 02/17/21 Interval history: Afebrile, normal white count. Objective - Exam Narrative Exam: Physical exam deferred to reduce risk of transmission of COVID-19. Please refer to primary team's note. - Constitutional Vitals: Vital Signs Temp Pulse Resp BP Pulse Ox 98.8 F 86 18 151/86 94 02/17/21 04:28 02/17/21 04:28 02/17/21 04:28 02/17/21 04:28 02/17/21 04:28 Temperature -Last 24 Hours Temperature 98.8 F Temperature 98.5 F Temperature 98.5 F Temperature 99.7 F - Labs CBC & Chem 7: 02/14/21 10:05 02/17/21 06:39 Labs: Abnormal lab results 02/16/21 02/17/21 Range/Units 12:11 06:39 POC Glucose 152 H (70-105) mg/dL AST 48 H (5-40) units/L ALT 96 H (7-56) units/L Alkaline Phosphatase 150 H (35-129) units/L Albumin 2.7 L (3.9-5) g/dL
[2021-02-17] MEDS: SODIUM CHLORIDE 0.9% 50 ML IVPB IV SCH (22:37)
[2021-02-17] MEDS: REMDESIVIR 100 MG in SODIUM CHLORIDE 0.9% 250ML 250 ML IV SCH (22:37)
[2021-02-17] MEDS: ENOXAPARIN 40 MG/0.4 ML INJ SUB-Q SCH (22:37)
[2021-02-18] MEDS: GABAPENTIN 300 MG CAP PO SCH ×3 (05:44→22:19)
[2021-02-18 07:56] LABS: Basophils % (Auto) 0.4 % (0.0-1.8); Eosinophils % (Auto) 0.5 % (0.0-4.3); Hematocrit 37.9 % (35.5-45.6); Hemoglobin 12.6 gm/dl (11.8-15.2); Lymphocytes # (Auto) 1.5 K/mm3 (1.2-5.4); Lymphocytes % (Auto) 16.4 % (13.4-35.0); Mean Corpuscular HGB Conc 33 % (32-34); Mean Corpuscular Volume 84 fl (84-94); Monocytes % (Auto) 11.3 % (0.0-7.3); Platelet Count 315 K/mm3 (140-440); Red Blood Count 4.49 M/mm3 (3.65-5.03); Red Cell Distribution Width 16.6 % (13.2-15.2)
[2021-02-18 08:20] LABS: BUN/Creatinine Ratio 16; Blood Urea Nitrogen 14 mg/dL (9-20); Calcium 8.6 mg/dL (8.4-10.2); Hemolysis Index 1
[2021-02-18] MEDS: PANTOPRAZOLE 40 MG TAB PO SCH (10:54)
[2021-02-18] MEDS: DOCUSATE SODIUM 100 MG CAP PO SCH ×2 (10:54→22:17)
[2021-02-18] MEDS: CHOLECALCIFEROL (VIT D3) 5,000 UNIT TAB PO SCH (10:56)
[2021-02-18] MEDS: ZINC SULFATE 220 MG CAP PO SCH ×2 (10:58→22:17)
[2021-02-18] MEDS: ASCORBIC ACID 500 MG TAB PO SCH ×2 (10:58→22:16)
[2021-02-18] MEDS: DEXAMETHASONE 4 MG TAB PO SCH (11:04)
--- NOTE | 2021-02-18 12:10 | Progress Note ---
Assessment and Plan Cultures: SARS CoV2 PCR: Positive 02/13/2021 blood culture: no growth Hepatitis B core IgM reactive A/P: 65-year-old male with prostate cancer, and vaccinated for COVID-19 admitted to the hospital with: #Bilateral COVID-19 pneumonia: CTA negative for PE #Acute hypoxic respiratory failure: required NRB in the ER. Now on NC. #Transaminitis: Likely secondary to COVID-19. Hepatitis B core IgM reactive #Hepatitis B serology: Unclear if false positive, surface antigen is negative. F/U Hep B DNA PCR Recs: continue IV/PO Dexamethasone x 10 days continue IV remdesivir x 5 days Due to elevated procalcitonin, cannot rule out bacterial infection, hence not a candidate for Tocilizumab Continue empiric antibiotics for total 5 days prophylactic anticoagulation based on d-dimer per hospital protocol trend ferritin, LDH, d-dimer, CRP every 2-3 days for risk stratification and to assess disease progression f/u Hep B DNA PCR Marie Padgett MD [facility] ([facility] O: [phone] F: [phone] Subjective Date of service: 02/18/21 Interval history: Afebrile, normal white count. Objective - Exam Narrative Exam: Physical exam deferred to reduce risk of transmission of COVID-19. Please refer to primary team's note. - Constitutional Vitals: Vital Signs Temp Pulse Resp BP Pulse Ox 98.2 F 68 20 141/83 98 02/17/21 23:53 02/17/21 23:54 02/17/21 23:53 02/17/21 23:53 02/17/21 23:54 Temperature -Last 24 Hours Temperature 98.2 F Temperature 98.1 F - Labs CBC & Chem 7: 02/18/21 07:15 02/18/21 07:15 Labs: Abnormal lab results 02/18/21 Range/Units 07:15 RDW 16.6 H (13.2-15.2) % [place] % (Auto) 11.3 H (0.0-7.3) % [place] # (Auto) 1.0 H (0.0-0.8) K/mm3 Seg Neutrophils % 71.4 H (40.0-70.0) %
--- NOTE | 2021-02-18 13:42 | Progress Note ---
Assessment and Plan - Patient Problems (1) Acute respiratory failure with hypoxia Current Visit: Yes Status: Acute Plan to address problem: Acute hypoxic respiratory failure with debility. Patient still unable to wean very well remains on 6 L O2. We will see how patient does with oxygen today and attempt to wean down. (2) Bilateral pneumonia Current Visit: Yes Status: Acute Qualifiers: Pneumonia type: due to unspecified organism Lung location: unspecified part of lung Qualified Code(s): J18.9 - Pneumonia, unspecified organism Plan to address problem: Can Oleg to COVID-19 pneumonia continue antiretrovirals \Continue steroids Continue zinc, vitamin C, vitamin D Supplemental oxygen wean as tolerated Patient may require physical therapy for debility prior to discharge or placement. Case management aware. (3) Pneumonia due to COVID-19 virus Current Visit: Yes Status: Acute (4) Debility Current Visit: Yes Status: Acute Plan to address problem: Secondary to prolonged hospital stay and Covid pneumonia with hypoxemia anticipate potential placement Subjective Date of service: 02/18/21 Principal diagnosis: COVID-19 positive test (U07.1, COVID-19) with Acute Pneumonia (J12.89, O Interval history: Failed walk test today. Patient remains very weak. Could barely walk to the bathroom without becoming hypoxic. Hypoxia this will attempt to go to the bathroom and get up out of bed.. Anticipate patient may require placement because he lives by self and has been so weak. Objective - Constitutional Vitals: Vital Signs - 12hr 02/18/21 10:56 Temperature 99.3 F Pulse Rate 97 H Respiratory 18 Rate Blood Pressure 123/87 O2 Sat by Pulse 88 Oximetry General appearance: Present: no acute distress, well-nourished - EENT Eyes: PERRL, EOM intact ENT: hearing intact, clear oral mucosa Ears: bilateral: normal - Neck Neck: supple, normal ROM - Respiratory Respiratory effort: normal Respiratory: bilateral: diminished - Breasts Breasts: normal - Cardiovascular Rhythm: regular Heart Sounds: Present: S1 & S2. Absent: gallop, rub Extremities: pulses intact, No edema, normal color, Full ROM - Gastrointestinal General gastrointestinal: Present: soft, non-tender, non-distended, normal bowel sounds - Genitourinary Male genitourinary: normal - Integumentary Integumentary: clear, warm, dry - Musculoskeletal Musculoskeletal: 1, strength equal bilaterally - Neurologic Neurologic: moves all extremities - Psychiatric Psychiatric: memory intact, appropriate mood/affect, intact judgment & insight - Labs CBC & Chem 7: 02/18/21 07:15 02/18/21 07:15 Labs: Abnormal lab results 02/18/21 Range/Units 07:15 RDW 16.6 H (13.2-15.2) % [place] % (Auto) 11.3 H (0.0-7.3) % [place] # (Auto) 1.0 H (0.0-0.8) K/mm3 Seg Neutrophils % 71.4 H (40.0-70.0) % HEART Score - HEART Score Troponin: Troponin T < 0.010 ng/mL (0.00-0.029) 02/13/21 16:14
[2021-02-18] MEDS: REMDESIVIR 100 MG in SODIUM CHLORIDE 0.9% 250ML 250 ML IV SCH (22:17)
[2021-02-18] MEDS: SODIUM CHLORIDE 0.9% 50 ML IVPB IV SCH (22:17)
[2021-02-18] MEDS: ENOXAPARIN 40 MG/0.4 ML INJ SUB-Q SCH (22:17)
[2021-02-18] MEDS: dexAMETHasone 4 MG/ML VIAL IV SCH (22:18)
[2021-02-19] MEDS: GABAPENTIN 300 MG CAP PO SCH ×3 (05:29→22:00)
--- NOTE | 2021-02-19 07:33 | Progress Note ---
Assessment and Plan - Patient Problems (1) Acute respiratory failure with hypoxia Current Visit: Yes Status: Acute Plan to address problem: Acute hypoxic respiratory failure with debility. Patient still unable to wean very well remains on 6 L O2. We will see how patient does with oxygen today and attempt to wean down. Patient did much better with oxygenation decreasing from 6 L to 3 L. Will attempt to wean as appropriate. Continue to treat for Covid pneumonia (2) Bilateral pneumonia Current Visit: Yes Status: Acute Qualifiers: Pneumonia type: due to unspecified organism Lung location: unspecified part of lung Qualified Code(s): J18.9 - Pneumonia, unspecified organism Plan to address problem: Secondary to COVID-19 pneumonia continue antiretrovirals \Continue steroids Continue zinc, vitamin C, vitamin D Supplemental oxygen wean as tolerated Patient may require physical therapy for debility prior to discharge or placement. Case management aware. (3) Pneumonia due to COVID-19 virus Current Visit: Yes Status: Acute (4) Debility Current Visit: Yes Status: Acute Plan to address problem: Secondary to prolonged hospital stay and Covid pneumonia with hypoxemia anticipate potential placement Subjective Date of service: 02/19/21 Principal diagnosis: COVID-19 positive test (U07.1, COVID-19) with Acute Pneumonia (J12.89, O Interval history: Failed walk test today. Patient remains very weak. Could barely walk to the bathroom without becoming hypoxic. Hypoxia this will attempt to go to the bathroom and get up out of bed.. Anticipate patient may require placement because he lives by self and has been so weak. 02/18/2021--patient has showed significant improvement today. Patient has gone from 10 L down to 3 L without much difficulty. Patient still had problems with shortness of breath with physical therapy. He appears to have gotten stronger. Patient very anxious and concerned that his oxygenation goes down and he becomes short of breath when he gets up to move around. All questions answered to patient satisfaction. In room for greater than 20 minutes. Patient aggravated by short time spent by physicians in the room. Objective - Constitutional Vitals: Vital Signs - 12hr 02/18/21 02/18/21 02/19/21 22:00 22:40 04:35 Temperature 97.9 F 98.0 F Pulse Rate 69 64 Respiratory 18 20 Rate Blood Pressure 131/79 149/87 O2 Sat by Pulse 96 99 99 Oximetry General appearance: Present: no acute distress, well-nourished - Respiratory Respiratory: bilateral: diminished - Cardiovascular Rhythm: regular Heart Sounds: Present: S1 & S2. Absent: gallop, rub Extremities: pulses intact, No edema, normal color, Full ROM - Gastrointestinal General gastrointestinal: Present: soft, non-tender, non-distended, normal bowel sounds - Musculoskeletal Musculoskeletal: generalized weakness - Neurologic Neurologic: moves all extremities - Psychiatric Psychiatric: memory intact, appropriate mood/affect, intact judgment & insight - Labs CBC & Chem 7: 02/18/21 07:15 02/18/21 07:15 Labs: Abnormal lab results 02/18/21 Range/Units 07:15 RDW 16.6 H (13.2-15.2) % [place] % (Auto) 11.3 H (0.0-7.3) % [place] # (Auto) 1.0 H (0.0-0.8) K/mm3 Seg Neutrophils % 71.4 H (40.0-70.0) % HEART Score - HEART Score Troponin: Troponin T < 0.010 ng/mL (0.00-0.029) 02/13/21 16:14
[2021-02-19] MEDS: DEXAMETHASONE 4 MG TAB PO SCH (10:14)
[2021-02-19] MEDS: ZINC SULFATE 220 MG CAP PO SCH ×2 (10:14→22:00)
[2021-02-19] MEDS: CHOLECALCIFEROL (VIT D3) 5,000 UNIT TAB PO SCH (10:14)
[2021-02-19] MEDS: ASCORBIC ACID 500 MG TAB PO SCH ×2 (10:14→22:00)
[2021-02-19] MEDS: DOCUSATE SODIUM 100 MG CAP PO SCH ×2 (10:14→22:00)
[2021-02-19] MEDS: PANTOPRAZOLE 40 MG TAB PO SCH (10:15)
--- NOTE | 2021-02-19 16:41 | Progress Note ---
Assessment and Plan Cultures: SARS CoV2 PCR: Positive 02/13/2021 blood culture: no growth Hepatitis B core IgM reactive A/P: 65-year-old male with prostate cancer, and vaccinated for COVID-19 admitted to the hospital with: #Bilateral COVID-19 pneumonia: CTA negative for PE #Acute hypoxic respiratory failure: required NRB in the ER. Now on NC. #Transaminitis: Likely secondary to COVID-19. Hepatitis B core IgM reactive #Hepatitis B serology: Unclear if false positive, surface antigen is negative. F/U Hep B DNA PCR Recs: continue IV/PO Dexamethasone x 10 days Completed Remdesivir Complete empiric antibiotics prophylactic anticoagulation based on d-dimer per hospital protocol trend ferritin, LDH, d-dimer, CRP every 2-3 days for risk stratification and to assess disease progression f/u Hep B DNA PCR Marie Padgett MD [facility] O: [phone] F: [phone] Subjective Date of service: 02/19/21 Principal diagnosis: COVID-19 positive test (U07.1, COVID-19) with Acute Pneumonia (J12.89, O Interval history: Afebrile, normal white count. Now on 3 L nasal cannula. Objective - Exam Narrative Exam: Physical exam deferred to reduce risk of transmission of COVID-19. Please refer to primary team's note. - Constitutional Vitals: Vital Signs Temp Pulse Resp BP Pulse Ox 98.0 F 64 20 149/87 99 02/19/21 04:35 02/19/21 04:35 02/19/21 04:35 02/19/21 04:35 02/19/21 04:35 Temperature -Last 24 Hours Temperature 98.0 F Temperature 97.9 F - Labs CBC & Chem 7: 02/18/21 07:15 02/18/21 07:15
[2021-02-19] MEDS: ENOXAPARIN 40 MG/0.4 ML INJ SUB-Q SCH (20:00)
[2021-02-20] MEDS: GABAPENTIN 300 MG CAP PO SCH ×3 (05:47→22:47)
[2021-02-20 08:41] LABS: Basophils % (Auto) 0.2 % (0.0-1.8); Eosinophils % (Auto) 0.1 % (0.0-4.3); Hemoglobin 12.7 gm/dl (11.8-15.2); Lymphocytes # (Auto) 1.4 K/mm3 (1.2-5.4); Lymphocytes % (Auto) 21.9 % (13.4-35.0); Mean Corpuscular HGB Conc 33 % (32-34); Mean Corpuscular Volume 84 fl (84-94); Monocytes # (Auto) 0.9 K/mm3 (0.0-0.8); Monocytes % (Auto) 14.9 % (0.0-7.3); Platelet Count 291 K/mm3 (140-440); Red Blood Count 4.52 M/mm3 (3.65-5.03); Red Cell Distribution Width 16.2 % (13.2-15.2)
[2021-02-20 09:00] LABS: BUN/Creatinine Ratio 25; Blood Urea Nitrogen 20 mg/dL (9-20); Calcium 8.8 mg/dL (8.4-10.2); Hemolysis Index 8
--- NOTE | 2021-02-20 09:07 | Progress Note ---
Assessment and Plan Assessment and plan: (1) Acute respiratory failure with hypoxia Supplemental oxygen, pulse oximetry, nebulizer therapy, noninvasive positive pressure ventilation as clinically indicated. (2) Bilateral pneumonia Pneumonia protocol: IV antibiotic therapy, supplemental oxygen, pulse oximetry, blood culture. (3) SIRS (systemic inflammatory response syndrome) Patient does not meet criteria for sepsis given normal WBC, no tachycardia, AMS or fever on admission. (4) COVID-19 virus infection Covid PCR positive on 02/13. Continue dexamethasone and remdesivir. Continue to follow of anti-inflammatory markers. (5) Disposition Await physical therapy evaluation for placement. (6) DVT prophylaxis SCD to bilateral lower extremities while in bed, prophylactic anticoagulation History Interval history: 65 YO Male HD#3 with systemic inflammatory response syndrome, acute respiratory failure with hypoxemia, bilateral pneumonia, coronavirus infection. Patient resting comfortably in bed. No reported nursing events overnight. Patient denies pain. Patient reports continued shortness of breath. Hospitalist Physical - Constitutional Vitals: Temp Pulse Resp BP Pulse Ox 98.7 F 82 18 134/78 96 02/20/21 05:00 02/20/21 05:00 02/20/21 05:00 02/20/21 05:00 02/20/21 05:00 General appearance: Present: no acute distress, well-nourished - EENT Eyes: Present: PERRL, EOM intact ENT: hearing intact, clear oral mucosa, dentition normal - Neck Neck: Present: supple, normal ROM - Respiratory Respiratory effort: normal Respiratory: bilateral: CTA - Cardiovascular Rhythm: regular Heart Sounds: Present: S1 & S2. Absent: gallop, rub - Extremities Extremities: no ischemia, No edema, Full ROM - Abdominal General gastrointestinal: soft, non-tender, non-distended, normal bowel sounds - Integumentary Integumentary: Present: clear, warm, dry - Neurologic Neurologic: CNII-XII intact, moves all extremities HEART Score - HEART Score Troponin: Troponin T < 0.010 ng/mL (0.00-0.029) 02/13/21 16:14 Results - Labs CBC & Chem 7: 02/20/21 07:58 02/20/21 07:58 Labs: Laboratory Last Values WBC 6.2 K/mm3 (4.5-11.0) 02/20/21 07:58 RBC 4.52 M/mm3 (3.65-5.03) 02/20/21 07:58 Hgb 12.7 gm/dl (11.8-15.2) 02/20/21 07:58 Hct 38.0 % (35.5-45.6) 02/20/21 07:58 MCV 84 fl (84-94) 02/20/21 07:58 MCH 28 pg (28-32) 02/20/21 07:58 MCHC 33 % (32-34) 02/20/21 07:58 RDW 16.2 % (13.2-15.2) H 02/20/21 07:58 Plt Count 291 K/mm3 (140-440) 02/20/21 07:58 Lymph % (Auto) 21.9 % (13.4-35.0) 02/20/21 07:58 [place] % (Auto) 14.9 % (0.0-7.3) H 02/20/21 07:58 Eos % (Auto) 0.1 % (0.0-4.3) 02/20/21 07:58 Baso % (Auto) 0.2 % (0.0-1.8) 02/20/21 07:58 Lymph # (Auto) 1.4 K/mm3 (1.2-5.4) 02/20/21 07:58 [place] # (Auto) 0.9 K/mm3 (0.0-0.8) H 02/20/21 07:58 Eos # (Auto) 0.0 K/mm3 (0.0-0.4) 02/20/21 07:58 Baso # (Auto) 0.0 K/mm3 (0.0-0.1) 02/20/21 07:58 Add Manual Diff Complete 02/14/21 10:05 Total Counted 100 02/14/21 10:05 Seg Neutrophils % 62.9 % (40.0-70.0) 02/20/21 07:58 Seg Neuts % (Manual) 83.0 % (40.0-70.0) H 02/14/21 10:05 Lymphocytes % (Manual) 13.0 % (13.4-35.0) L 02/14/21 10:05 Monocytes % (Manual) 3.0 % (0.0-7.3) 02/14/21 10:05 Myelocytes % 1.0 % 02/14/21 10:05 Nucleated RBC % Not Reportable 02/14/21 10:05 Seg Neutrophils # 3.9 K/mm3 (1.8-7.7) 02/20/21 07:58 Seg Neutrophils # Man 6.9 K/mm3 (1.8-7.7) 02/14/21 10:05 Band Neutrophils # 0.0 K/mm3 02/14/21 10:05 Lymphocytes # (Manual) 1.1 K/mm3 (1.2-5.4) L 02/14/21 10:05 Abs React Lymphs (Man) 0.0 K/mm3 02/14/21 10:05 Monocytes # (Manual) 0.2 K/mm3 (0.0-0.8) 02/14/21 10:05 Eosinophils # (Manual) 0.0 K/mm3 (0.0-0.4) 02/14/21 10:05 Basophils # (Manual) 0.0 K/mm3 (0.0-0.1) 02/14/21 10:05 Metamyelocytes # 0.0 K/mm3 02/14/21 10:05 Myelocytes # 0.1 K/mm3 02/14/21 10:05 Promyelocytes # 0.0 K/mm3 02/14/21 10:05 Blast Cells # 0.0 K/mm3 02/14/21 10:05 WBC Morphology Not Reportable 02/14/21 10:05 Hypersegmented Neuts Not Reportable 02/14/21 10:05 Hyposegmented Neuts Not Reportable 02/14/21 10:05 Hypogranular Neuts Not Reportable 02/14/21 10:05 Smudge Cells Not Reportable 02/14/21 10:05 Toxic Granulation Not Reportable 02/14/21 10:05 Toxic Vacuolation Not Reportable 02/14/21 10:05 Dohle Bodies Not Reportable 02/14/21 10:05 Pelger-Huet Anomaly Not Reportable 02/14/21 10:05 Timothy Rods Not Reportable 02/14/21 10:05 Platelet Estimate Consistent w auto 02/14/21 10:05 Clumped Platelets Not Reportable 02/14/21 10:05 Plt Clumps, EDTA Not Reportable 02/14/21 10:05 Large Platelets Not Reportable 02/14/21 10:05 Giant Platelets Not Reportable 02/14/21 10:05 Platelet Satelliting Not Reportable 02/14/21 10:05 Plt Morphology Comment Not Reportable 02/14/21 10:05 RBC Morphology Normal 02/14/21 10:05 Dimorphic RBCs Not Reportable 02/14/21 10:05 Polychromasia Not Reportable 02/14/21 10:05 Hypochromasia Not Reportable 02/14/21 10:05 Poikilocytosis Not Reportable 02/14/21 10:05 Anisocytosis Not Reportable 02/14/21 10:05 Microcytosis Not Reportable 02/14/21 10:05 Macrocytosis Not Reportable 02/14/21 10:05 Spherocytes Not Reportable 02/14/21 10:05 Pappenheimer Bodies Not Reportable 02/14/21 10:05 Sickle Cells Not Reportable 02/14/21 10:05 Target Cells Not Reportable 02/14/21 10:05 Tear Drop Cells Not Reportable 02/14/21 10:05 Ovalocytes Not Reportable 02/14/21 10:05 Helmet Cells Not Reportable 02/14/21 10:05 [place] Bodies Not Reportable 02/14/21 10:05 [place] Rings Not Reportable 02/14/21 10:05 [place] Cells Not Reportable 02/14/21 10:05 Bite Cells Not Reportable 02/14/21 10:05 Crenated Cell Not Reportable 02/14/21 10:05 Elliptocytes Not Reportable 02/14/21 10:05 Acanthocytes (Spur) Not Reportable 02/14/21 10:05 Rouleaux Not Reportable 02/14/21 10:05 Hemoglobin C Crystals Not Reportable 02/14/21 10:05 Schistocytes Not Reportable 02/14/21 10:05 Malaria parasites Not Reportable 02/14/21 10:05 [place] Bodies Not Reportable 02/14/21 10:05 Hem Pathologist Commnt No 02/14/21 10:05 PT 16.9 Sec. (12.2-14.9) H 02/13/21 16:13 INR 1.32 (0.87-1.13) H 02/13/21 16:13 D-Dimer 4286.34 ng/mlDDU (0-234) H 02/15/21 07:29 Sodium 135 mmol/L (137-145) L 02/20/21 07:58 Potassium 4.4 mmol/L (3.6-5.0) 02/20/21 07:58 Chloride 100.4 mmol/L (98-107) 02/20/21 07:58 Carbon Dioxide 23 mmol/L (22-30) 02/20/21 07:58 Anion Gap 16 mmol/L 02/20/21 07:58 BUN 20 mg/dL (9-20) 02/20/21 07:58 Creatinine 0.8 mg/dL (0.8-1.3) 02/20/21 07:58 Estimated GFR > 60 ml/min 02/20/21 07:58 BUN/Creatinine Ratio 25 % 02/20/21 07:58 Glucose 99 mg/dL (75-100) 02/20/21 07:58 POC Glucose 152 mg/dL (70-105) H 02/16/21 12:11 Hemoglobin A1c 6.7 % (4-6) H 02/14/21 10:05 Calcium 8.8 mg/dL (8.4-10.2) 02/20/21 07:58 Ferritin 1427.0 ng/mL (30.0-300.0) H 02/13/21 16:13 Total Bilirubin 0.30 mg/dL (0.1-1.2) 02/17/21 06:39 AST 48 units/L (5-40) H 02/17/21 06:39 ALT 96 units/L (7-56) H 02/17/21 06:39 Alkaline Phosphatase 150 units/L (35-129) H 02/17/21 06:39 Lactate Dehydrogenase 443 units/L (91-180) H 02/13/21 16:14 Troponin T < 0.010 ng/mL (0.00-0.029) 02/13/21 16:14 C-Reactive Protein 7.70 mg/dL (0.00-1.30) H 02/15/21 07:29 NT-Pro-B Natriuret Pep 236.4 pg/mL (0-900) 02/13/21 16:14 Total Protein 6.3 g/dL (6.3-8.2) 02/17/21 06:39 Albumin 2.7 g/dL (3.9-5) L 02/17/21 06:39 Albumin/Globulin Ratio 0.8 % 02/17/21 06:39 Procalcitonin 1.49 ng/mL (<0.15) 02/15/21 07:29 Coronavirus (PCR) Positive (Negative) A 02/13/21 08:30 Hepatitis A IgM Ab Non-reactive (NonReactive) 02/14/21 10:05 Hep Bs Antigen Non-reactive (Negative) 02/14/21 10:05 Hep B Core IgM Ab Reactive (NonReactive) A 02/14/21 10:05 Hepatitis C Antibody Non-reactive (NonReactive) 02/14/21 10:05 Santos/IV: Voiding Method Urinal Active Medications - Current Medications Current Medications: Generic Name Dose Route Start Last Admin Trade Name Freq PRN Reason Stop Dose Admin Acetaminophen 650 mg 02/13/21 21:48 Acetaminophen 325 Mg Tab PO Q4H PRN Pain MILD(1-3)/Fever >100.5/SALAS Hydrocodone Bitart/Acetaminophen 1 each 02/13/21 21:52 Hydrocodone/Acetaminophen 7.5-325mg Tab PO Q6H PRN Pain , Severe (7-10) Ascorbic Acid 1,000 mg 02/14/21 22:00 02/19/21 22:00 Ascorbic Acid 500 Mg Tab PO 1,000 mg BID ALIN Administration Cholecalciferol 5,000 unit 02/14/21 18:00 02/19/21 10:14 Cholecalciferol (Vit D3) 5,000 Unit Tab PO 5,000 unit DAILY ALIN Administration Dexamethasone 8 mg 02/18/21 11:00 02/19/21 10:14 Dexamethasone 4 Mg Tab PO 02/22/21 10:59 8 mg DAILY ALIN Administration Docusate Sodium 100 mg 02/13/21 22:00 02/19/21 22:00 Docusate Sodium 100 Mg Cap PO 100 mg BID ALIN Administration Enoxaparin Sodium 40 mg 02/13/21 22:00 02/19/21 20:00 Enoxaparin 40 Mg/0.4 Ml Inj SUB-Q 40 mg QDAY@2200 ALIN Administration Gabapentin 300 mg 02/13/21 22:00 02/20/21 05:47 Gabapentin 300 Mg Cap PO 300 mg Q8HR ALIN Administration Hydromorphone HCl 0.5 mg 02/13/21 21:48 Hydromorphone 1 Mg/1 Ml Inj IV Q3H PRN Pain , Severe (7-10) Metoclopramide HCl 10 mg 02/13/21 21:48 Metoclopramide 10 Mg/2 Ml Inj IV Q6H PRN Nausea And Vomiting Ondansetron HCl 4 mg 02/13/21 21:48 Ondansetron 4 Mg/2 Ml Inj IV Q8H PRN Nausea And Vomiting Pantoprazole Sodium 40 mg 02/14/21 07:30 02/19/21 10:15 Pantoprazole 40 Mg Tab PO 40 mg QDAC ALIN Administration Sodium Chloride 10 ml 02/13/21 22:00 02/19/21 22:00 Sodium Chloride 0.9% 10 Ml Flush Syringe IV 10 ml BID ALIN Administration Sodium Chloride 10 ml 02/13/21 21:48 Sodium Chloride 0.9% 10 Ml Flush Syringe IV PRN PRN LINE FLUSH Zinc Sulfate 220 mg 02/14/21 22:00 02/19/21 22:00 Zinc Sulfate 220 Mg Cap PO 220 mg BID ALIN Administration
[2021-02-20] MEDS: ZINC SULFATE 220 MG CAP PO SCH ×2 (09:37→22:47)
[2021-02-20] MEDS: ASCORBIC ACID 500 MG TAB PO SCH ×2 (09:37→22:47)
[2021-02-20] MEDS: DOCUSATE SODIUM 100 MG CAP PO SCH ×2 (09:37→22:47)
[2021-02-20] MEDS: PANTOPRAZOLE 40 MG TAB PO SCH (09:38)
[2021-02-20] MEDS: CHOLECALCIFEROL (VIT D3) 5,000 UNIT TAB PO SCH (09:38)
[2021-02-20] MEDS: DEXAMETHASONE 4 MG TAB PO SCH (09:38)
--- NOTE | 2021-02-20 10:46 | Progress Note ---
Assessment and Plan Cultures: SARS CoV2 PCR: Positive 02/13/2021 blood culture: no growth Hepatitis B core IgM reactive A/P: 65-year-old male with prostate cancer, and vaccinated for COVID-19 admitted to the hospital with: #Bilateral COVID-19 pneumonia: CTA negative for PE #Acute hypoxic respiratory failure: required NRB in the ER. Now on NC. #Transaminitis: Likely secondary to COVID-19. Hepatitis B core IgM reactive #Hepatitis B serology: Unclear if false positive, surface antigen is negative. F/U Hep B DNA PCR Recs: continue IV/PO Dexamethasone x 10 days Completed Remdesivir Completed empiric antibiotics prophylactic anticoagulation based on d-dimer per hospital protocol trend ferritin, LDH, d-dimer, CRP every 2-3 days for risk stratification and to assess disease progression f/u Hep B DNA PCR - ok to follow up as outpatient. OK for DC from ID perspective when otherwise stable. ID will sign off. Please call with questions. Marie Padgett MD [facility] ([facility] O: [phone] F: [phone] Subjective Date of service: 02/20/21 Principal diagnosis: COVID-19 positive test (U07.1, COVID-19) with Acute Pneumonia (J12.89, O Interval history: Afebrile, no acute changes. Objective - Exam Narrative Exam: Physical exam deferred to reduce risk of transmission of COVID-19. Please refer to primary team's note. - Constitutional Vitals: Vital Signs Temp Pulse Resp BP Pulse Ox 98.7 F 82 18 134/78 96 02/20/21 05:00 02/20/21 05:00 02/20/21 05:00 02/20/21 05:00 02/20/21 05:00 Temperature -Last 24 Hours Temperature 98.7 F Temperature 98.8 F Temperature 99.4 F - Labs CBC & Chem 7: 02/20/21 07:58 02/20/21 07:58 Labs: Abnormal lab results 02/20/21 02/20/21 Range/Units 07:58 07:58 RDW 16.2 H (13.2-15.2) % [place] % (Auto) 14.9 H (0.0-7.3) % [place] # (Auto) 0.9 H (0.0-0.8) K/mm3 Sodium 135 L (137-145) mmol/L
[2021-02-20] MEDS: ENOXAPARIN 40 MG/0.4 ML INJ SUB-Q SCH (22:47)
[2021-02-21] MEDS: GABAPENTIN 300 MG CAP PO SCH ×3 (06:02→21:41)
--- NOTE | 2021-02-21 09:48 | Progress Note ---
Assessment and Plan Assessment and plan: (1) Acute respiratory failure with hypoxia Supplemental oxygen, pulse oximetry, nebulizer therapy, noninvasive positive pressure ventilation as clinically indicated. (2) Bilateral pneumonia Pneumonia protocol: IV antibiotic therapy, supplemental oxygen, pulse oximetry, blood culture. (3) SIRS (systemic inflammatory response syndrome) Patient does not meet criteria for sepsis given normal WBC, no tachycardia, AMS or fever on admission. (4) COVID-19 virus infection Covid PCR positive on 02/13. Continue dexamethasone and remdesivir. Continue to follow of anti-inflammatory markers. (5) Disposition Await physical therapy evaluation for placement. (6) DVT prophylaxis SCD to bilateral lower extremities while in bed, prophylactic anticoagulation 02/21/2021. Patient currently with 4 L of oxygen. Continue Covid protocol. Continue dexamethasone per ID recommendations and completed antibiotics and remdesivir. Continue to trend inflammatory markers. History Interval history: 65 YO Male HD#3 with systemic inflammatory response syndrome, acute respiratory failure with hypoxemia, bilateral pneumonia, coronavirus infection. Patient resting comfortably in bed. No reported nursing events overnight. Patient denies pain. Patient reports continued shortness of breath. Hospitalist Physical - Constitutional Vitals: Temp Pulse Resp BP Pulse Ox 97.7 F 68 18 139/81 96 02/21/21 04:25 02/21/21 04:25 02/21/21 04:25 02/21/21 04:25 02/21/21 04:25 General appearance: Present: no acute distress, well-nourished - EENT Eyes: Present: PERRL, EOM intact ENT: hearing intact, clear oral mucosa, dentition normal - Neck Neck: Present: supple, normal ROM - Respiratory Respiratory effort: normal Respiratory: bilateral: CTA - Cardiovascular Rhythm: regular Heart Sounds: Present: S1 & S2. Absent: gallop, rub - Extremities Extremities: no ischemia, No edema, Full ROM - Abdominal General gastrointestinal: soft, non-tender, non-distended, normal bowel sounds - Integumentary Integumentary: Present: clear, warm, dry - Neurologic Neurologic: CNII-XII intact, moves all extremities HEART Score - HEART Score Troponin: Troponin T < 0.010 ng/mL (0.00-0.029) 02/13/21 16:14 Results - Labs CBC & Chem 7: 02/20/21 07:58 02/20/21 07:58 Labs: Laboratory Last Values WBC 6.2 K/mm3 (4.5-11.0) 02/20/21 07:58 RBC 4.52 M/mm3 (3.65-5.03) 02/20/21 07:58 Hgb 12.7 gm/dl (11.8-15.2) 02/20/21 07:58 Hct 38.0 % (35.5-45.6) 02/20/21 07:58 MCV 84 fl (84-94) 02/20/21 07:58 MCH 28 pg (28-32) 02/20/21 07:58 MCHC 33 % (32-34) 02/20/21 07:58 RDW 16.2 % (13.2-15.2) H 02/20/21 07:58 Plt Count 291 K/mm3 (140-440) 02/20/21 07:58 Lymph % (Auto) 21.9 % (13.4-35.0) 02/20/21 07:58 [place] % (Auto) 14.9 % (0.0-7.3) H 02/20/21 07:58 Eos % (Auto) 0.1 % (0.0-4.3) 02/20/21 07:58 Baso % (Auto) 0.2 % (0.0-1.8) 02/20/21 07:58 Lymph # (Auto) 1.4 K/mm3 (1.2-5.4) 02/20/21 07:58 [place] # (Auto) 0.9 K/mm3 (0.0-0.8) H 02/20/21 07:58 Eos # (Auto) 0.0 K/mm3 (0.0-0.4) 02/20/21 07:58 Baso # (Auto) 0.0 K/mm3 (0.0-0.1) 02/20/21 07:58 Add Manual Diff Complete 02/14/21 10:05 Total Counted 100 02/14/21 10:05 Seg Neutrophils % 62.9 % (40.0-70.0) 02/20/21 07:58 Seg Neuts % (Manual) 83.0 % (40.0-70.0) H 02/14/21 10:05 Lymphocytes % (Manual) 13.0 % (13.4-35.0) L 02/14/21 10:05 Monocytes % (Manual) 3.0 % (0.0-7.3) 02/14/21 10:05 Myelocytes % 1.0 % 02/14/21 10:05 Nucleated RBC % Not Reportable 02/14/21 10:05 Seg Neutrophils # 3.9 K/mm3 (1.8-7.7) 02/20/21 07:58 Seg Neutrophils # Man 6.9 K/mm3 (1.8-7.7) 02/14/21 10:05 Band Neutrophils # 0.0 K/mm3 02/14/21 10:05 Lymphocytes # (Manual) 1.1 K/mm3 (1.2-5.4) L 02/14/21 10:05 Abs React Lymphs (Man) 0.0 K/mm3 02/14/21 10:05 Monocytes # (Manual) 0.2 K/mm3 (0.0-0.8) 02/14/21 10:05 Eosinophils # (Manual) 0.0 K/mm3 (0.0-0.4) 02/14/21 10:05 Basophils # (Manual) 0.0 K/mm3 (0.0-0.1) 02/14/21 10:05 Metamyelocytes # 0.0 K/mm3 02/14/21 10:05 Myelocytes # 0.1 K/mm3 02/14/21 10:05 Promyelocytes # 0.0 K/mm3 02/14/21 10:05 Blast Cells # 0.0 K/mm3 02/14/21 10:05 WBC Morphology Not Reportable 02/14/21 10:05 Hypersegmented Neuts Not Reportable 02/14/21 10:05 Hyposegmented Neuts Not Reportable 02/14/21 10:05 Hypogranular Neuts Not Reportable 02/14/21 10:05 Smudge Cells Not Reportable 02/14/21 10:05 Toxic Granulation Not Reportable 02/14/21 10:05 Toxic Vacuolation Not Reportable 02/14/21 10:05 Dohle Bodies Not Reportable 02/14/21 10:05 Pelger-Huet Anomaly Not Reportable 02/14/21 10:05 Timothy Rods Not Reportable 02/14/21 10:05 Platelet Estimate Consistent w auto 02/14/21 10:05 Clumped Platelets Not Reportable 02/14/21 10:05 Plt Clumps, EDTA Not Reportable 02/14/21 10:05 Large Platelets Not Reportable 02/14/21 10:05 Giant Platelets Not Reportable 02/14/21 10:05 Platelet Satelliting Not Reportable 02/14/21 10:05 Plt Morphology Comment Not Reportable 02/14/21 10:05 RBC Morphology Normal 02/14/21 10:05 Dimorphic RBCs Not Reportable 02/14/21 10:05 Polychromasia Not Reportable 02/14/21 10:05 Hypochromasia Not Reportable 02/14/21 10:05 Poikilocytosis Not Reportable 02/14/21 10:05 Anisocytosis Not Reportable 02/14/21 10:05 Microcytosis Not Reportable 02/14/21 10:05 Macrocytosis Not Reportable 02/14/21 10:05 Spherocytes Not Reportable 02/14/21 10:05 Pappenheimer Bodies Not Reportable 02/14/21 10:05 Sickle Cells Not Reportable 02/14/21 10:05 Target Cells Not Reportable 02/14/21 10:05 Tear Drop Cells Not Reportable 02/14/21 10:05 Ovalocytes Not Reportable 02/14/21 10:05 Helmet Cells Not Reportable 02/14/21 10:05 [place] Bodies Not Reportable 02/14/21 10:05 [place] Rings Not Reportable 02/14/21 10:05 [place] Cells Not Reportable 02/14/21 10:05 Bite Cells Not Reportable 02/14/21 10:05 Crenated Cell Not Reportable 02/14/21 10:05 Elliptocytes Not Reportable 02/14/21 10:05 Acanthocytes (Spur) Not Reportable 02/14/21 10:05 Rouleaux Not Reportable 02/14/21 10:05 Hemoglobin C Crystals Not Reportable 02/14/21 10:05 Schistocytes Not Reportable 02/14/21 10:05 Malaria parasites Not Reportable 02/14/21 10:05 [place] Bodies Not Reportable 02/14/21 10:05 Hem Pathologist Commnt No 02/14/21 10:05 PT 16.9 Sec. (12.2-14.9) H 02/13/21 16:13 INR 1.32 (0.87-1.13) H 02/13/21 16:13 D-Dimer 4286.34 ng/mlDDU (0-234) H 02/15/21 07:29 Sodium 135 mmol/L (137-145) L 02/20/21 07:58 Potassium 4.4 mmol/L (3.6-5.0) 02/20/21 07:58 Chloride 100.4 mmol/L (98-107) 02/20/21 07:58 Carbon Dioxide 23 mmol/L (22-30) 02/20/21 07:58 Anion Gap 16 mmol/L 02/20/21 07:58 BUN 20 mg/dL (9-20) 02/20/21 07:58 Creatinine 0.8 mg/dL (0.8-1.3) 02/20/21 07:58 Estimated GFR > 60 ml/min 02/20/21 07:58 BUN/Creatinine Ratio 25 % 02/20/21 07:58 Glucose 99 mg/dL (75-100) 02/20/21 07:58 POC Glucose 152 mg/dL (70-105) H 02/16/21 12:11 Hemoglobin A1c 6.7 % (4-6) H 02/14/21 10:05 Calcium 8.8 mg/dL (8.4-10.2) 02/20/21 07:58 Ferritin 1427.0 ng/mL (30.0-300.0) H 02/13/21 16:13 Total Bilirubin 0.30 mg/dL (0.1-1.2) 02/17/21 06:39 AST 48 units/L (5-40) H 02/17/21 06:39 ALT 96 units/L (7-56) H 02/17/21 06:39 Alkaline Phosphatase 150 units/L (35-129) H 02/17/21 06:39 Lactate Dehydrogenase 443 units/L (91-180) H 02/13/21 16:14 Troponin T < 0.010 ng/mL (0.00-0.029) 02/13/21 16:14 C-Reactive Protein 7.70 mg/dL (0.00-1.30) H 02/15/21 07:29 NT-Pro-B Natriuret Pep 236.4 pg/mL (0-900) 02/13/21 16:14 Total Protein 6.3 g/dL (6.3-8.2) 02/17/21 06:39 Albumin 2.7 g/dL (3.9-5) L 02/17/21 06:39 Albumin/Globulin Ratio 0.8 % 02/17/21 06:39 Procalcitonin 1.49 ng/mL (<0.15) 02/15/21 07:29 Coronavirus (PCR) Positive (Negative) A 02/13/21 08:30 Hepatitis A IgM Ab Non-reactive (NonReactive) 02/14/21 10:05 Hep Bs Antigen Non-reactive (Negative) 02/14/21 10:05 Hep B Core IgM Ab Reactive (NonReactive) A 02/14/21 10:05 Hepatitis C Antibody Non-reactive (NonReactive) 02/14/21 10:05 Santos/IV: Voiding Method Toilet Active Medications - Current Medications Current Medications: Generic Name Dose Route Start Last Admin Trade Name Freq PRN Reason Stop Dose Admin Acetaminophen 650 mg 02/13/21 21:48 Acetaminophen 325 Mg Tab PO Q4H PRN Pain MILD(1-3)/Fever >100.5/SALAS Hydrocodone Bitart/Acetaminophen 1 each 02/13/21 21:52 Hydrocodone/Acetaminophen 7.5-325mg Tab PO Q6H PRN Pain , Severe (7-10) Ascorbic Acid 1,000 mg 02/14/21 22:00 02/20/21 22:47 Ascorbic Acid 500 Mg Tab PO 1,000 mg BID ALIN Administration Cholecalciferol 5,000 unit 02/14/21 18:00 02/20/21 09:38 Cholecalciferol (Vit D3) 5,000 Unit Tab PO 5,000 unit DAILY ALIN Administration Dexamethasone 8 mg 02/18/21 11:00 02/20/21 09:38 Dexamethasone 4 Mg Tab PO 02/22/21 10:59 8 mg DAILY ALIN Administration Docusate Sodium 100 mg 02/13/21 22:00 02/20/21 22:47 Docusate Sodium 100 Mg Cap PO 100 mg BID ALIN Administration Enoxaparin Sodium 40 mg 02/13/21 22:00 02/20/21 22:47 Enoxaparin 40 Mg/0.4 Ml Inj SUB-Q 40 mg QDAY@2200 ALIN Administration Gabapentin 300 mg 02/13/21 22:00 02/21/21 06:02 Gabapentin 300 Mg Cap PO 300 mg Q8HR ALIN Administration Hydromorphone HCl 0.5 mg 02/13/21 21:48 Hydromorphone 1 Mg/1 Ml Inj IV Q3H PRN Pain , Severe (7-10) Metoclopramide HCl 10 mg 02/13/21 21:48 Metoclopramide 10 Mg/2 Ml Inj IV Q6H PRN Nausea And Vomiting Ondansetron HCl 4 mg 02/13/21 21:48 Ondansetron 4 Mg/2 Ml Inj IV Q8H PRN Nausea And Vomiting Pantoprazole Sodium 40 mg 02/14/21 07:30 02/20/21 09:38 Pantoprazole 40 Mg Tab PO 40 mg QDAC ALIN Administration Sodium Chloride 10 ml 02/13/21 22:00 02/20/21 22:48 Sodium Chloride 0.9% 10 Ml Flush Syringe IV 10 ml BID ALIN Administration Sodium Chloride 10 ml 02/13/21 21:48 Sodium Chloride 0.9% 10 Ml Flush Syringe IV PRN PRN LINE FLUSH Zinc Sulfate 220 mg 02/14/21 22:00 02/20/21 22:47 Zinc Sulfate 220 Mg Cap PO 220 mg BID ALIN Administration Nutrition/Malnutrition Assess - Dietary Evaluation Nutrition/Malnutrition Findings: Nutrition Notes Start: 02/20/21 08:55 Freq: Status: Active Protocol: Document 02/20/21 08:55 (Rec: 02/20/21 08:56 [email or web address]) Nutrition Notes Need for Assessment generated from: LOS Initial or Follow up Brief Note Subjective/Other Information Screen for LOS. Pt eating 100% of meals. Nutrition Intervention Revisit per MD consult or patient Sign Off request:
[2021-02-21] MEDS: PANTOPRAZOLE 40 MG TAB PO SCH (10:08)
[2021-02-21] MEDS: DEXAMETHASONE 4 MG TAB PO SCH (10:08)
[2021-02-21] MEDS: ZINC SULFATE 220 MG CAP PO SCH ×2 (10:08→21:40)
[2021-02-21] MEDS: ASCORBIC ACID 500 MG TAB PO SCH ×2 (10:08→21:40)
[2021-02-21] MEDS: DOCUSATE SODIUM 100 MG CAP PO SCH ×2 (10:08→21:41)
[2021-02-21] MEDS: CHOLECALCIFEROL (VIT D3) 5,000 UNIT TAB PO SCH (10:09)
[2021-02-21] MEDS: ENOXAPARIN 40 MG/0.4 ML INJ SUB-Q SCH (21:40)
[2021-02-22] MEDS: GABAPENTIN 300 MG CAP PO SCH ×3 (06:04→21:43)
--- NOTE | 2021-02-22 07:52 | Progress Note ---
Assessment and Plan Assessment and plan: (1) Acute respiratory failure with hypoxia Supplemental oxygen, pulse oximetry, nebulizer therapy, noninvasive positive pressure ventilation as clinically indicated. (2) Bilateral pneumonia Pneumonia protocol: IV antibiotic therapy, supplemental oxygen, pulse oximetry, blood culture. (3) SIRS (systemic inflammatory response syndrome) Patient does not meet criteria for sepsis given normal WBC, no tachycardia, AMS or fever on admission. (4) COVID-19 virus infection Covid PCR positive on 02/13. Continue dexamethasone and remdesivir. Continue to follow of anti-inflammatory markers. (5) Disposition Await physical therapy evaluation for placement. (6) DVT prophylaxis SCD to bilateral lower extremities while in bed, prophylactic anticoagulation 02/21/2021. Patient currently with 4 L of oxygen. Continue Covid protocol. Continue dexamethasone per ID recommendations and completed antibiotics and remdesivir. Continue to trend inflammatory markers. 02/22/2021. Patient currently with 4 L of oxygen. Continue Covid protocol. Continue dexamethasone per ID recommendations and completed antibiotics and remdesivir. Continue to trend inflammatory markers. History Interval history: 65 YO Male HD#3 with systemic inflammatory response syndrome, acute respiratory failure with hypoxemia, bilateral pneumonia, coronavirus infection. Patient resting comfortably in bed. No reported nursing events overnight. Patient denies pain. Patient reports continued shortness of breath. Hospitalist Physical - Constitutional Vitals: Temp Pulse Resp BP Pulse Ox 98.9 F 72 18 142/82 96 02/22/21 04:17 02/22/21 04:17 02/22/21 04:17 02/22/21 04:17 02/22/21 04:17 General appearance: Present: no acute distress, well-nourished - EENT Eyes: Present: PERRL, EOM intact ENT: hearing intact, clear oral mucosa, dentition normal - Neck Neck: Present: supple, normal ROM - Respiratory Respiratory effort: normal Respiratory: bilateral: CTA - Cardiovascular Rhythm: regular Heart Sounds: Present: S1 & S2. Absent: gallop, rub - Extremities Extremities: no ischemia, No edema, Full ROM - Abdominal General gastrointestinal: soft, non-tender, non-distended, normal bowel sounds - Integumentary Integumentary: Present: clear, warm, dry - Neurologic Neurologic: CNII-XII intact, moves all extremities HEART Score - HEART Score Troponin: Troponin T < 0.010 ng/mL (0.00-0.029) 02/13/21 16:14 Results - Labs CBC & Chem 7: 02/20/21 07:58 02/20/21 07:58 Labs: Laboratory Last Values WBC 6.2 K/mm3 (4.5-11.0) 02/20/21 07:58 RBC 4.52 M/mm3 (3.65-5.03) 02/20/21 07:58 Hgb 12.7 gm/dl (11.8-15.2) 02/20/21 07:58 Hct 38.0 % (35.5-45.6) 02/20/21 07:58 MCV 84 fl (84-94) 02/20/21 07:58 MCH 28 pg (28-32) 02/20/21 07:58 MCHC 33 % (32-34) 02/20/21 07:58 RDW 16.2 % (13.2-15.2) H 02/20/21 07:58 Plt Count 291 K/mm3 (140-440) 02/20/21 07:58 Lymph % (Auto) 21.9 % (13.4-35.0) 02/20/21 07:58 [place] % (Auto) 14.9 % (0.0-7.3) H 02/20/21 07:58 Eos % (Auto) 0.1 % (0.0-4.3) 02/20/21 07:58 Baso % (Auto) 0.2 % (0.0-1.8) 02/20/21 07:58 Lymph # (Auto) 1.4 K/mm3 (1.2-5.4) 02/20/21 07:58 [place] # (Auto) 0.9 K/mm3 (0.0-0.8) H 02/20/21 07:58 Eos # (Auto) 0.0 K/mm3 (0.0-0.4) 02/20/21 07:58 Baso # (Auto) 0.0 K/mm3 (0.0-0.1) 02/20/21 07:58 Add Manual Diff Complete 02/14/21 10:05 Total Counted 100 02/14/21 10:05 Seg Neutrophils % 62.9 % (40.0-70.0) 02/20/21 07:58 Seg Neuts % (Manual) 83.0 % (40.0-70.0) H 02/14/21 10:05 Lymphocytes % (Manual) 13.0 % (13.4-35.0) L 02/14/21 10:05 Monocytes % (Manual) 3.0 % (0.0-7.3) 02/14/21 10:05 Myelocytes % 1.0 % 02/14/21 10:05 Nucleated RBC % Not Reportable 02/14/21 10:05 Seg Neutrophils # 3.9 K/mm3 (1.8-7.7) 02/20/21 07:58 Seg Neutrophils # Man 6.9 K/mm3 (1.8-7.7) 02/14/21 10:05 Band Neutrophils # 0.0 K/mm3 02/14/21 10:05 Lymphocytes # (Manual) 1.1 K/mm3 (1.2-5.4) L 02/14/21 10:05 Abs React Lymphs (Man) 0.0 K/mm3 02/14/21 10:05 Monocytes # (Manual) 0.2 K/mm3 (0.0-0.8) 02/14/21 10:05 Eosinophils # (Manual) 0.0 K/mm3 (0.0-0.4) 02/14/21 10:05 Basophils # (Manual) 0.0 K/mm3 (0.0-0.1) 02/14/21 10:05 Metamyelocytes # 0.0 K/mm3 02/14/21 10:05 Myelocytes # 0.1 K/mm3 02/14/21 10:05 Promyelocytes # 0.0 K/mm3 02/14/21 10:05 Blast Cells # 0.0 K/mm3 02/14/21 10:05 WBC Morphology Not Reportable 02/14/21 10:05 Hypersegmented Neuts Not Reportable 02/14/21 10:05 Hyposegmented Neuts Not Reportable 02/14/21 10:05 Hypogranular Neuts Not Reportable 02/14/21 10:05 Smudge Cells Not Reportable 02/14/21 10:05 Toxic Granulation Not Reportable 02/14/21 10:05 Toxic Vacuolation Not Reportable 02/14/21 10:05 Dohle Bodies Not Reportable 02/14/21 10:05 Pelger-Huet Anomaly Not Reportable 02/14/21 10:05 Timothy Rods Not Reportable 02/14/21 10:05 Platelet Estimate Consistent w auto 02/14/21 10:05 Clumped Platelets Not Reportable 02/14/21 10:05 Plt Clumps, EDTA Not Reportable 02/14/21 10:05 Large Platelets Not Reportable 02/14/21 10:05 Giant Platelets Not Reportable 02/14/21 10:05 Platelet Satelliting Not Reportable 02/14/21 10:05 Plt Morphology Comment Not Reportable 02/14/21 10:05 RBC Morphology Normal 02/14/21 10:05 Dimorphic RBCs Not Reportable 02/14/21 10:05 Polychromasia Not Reportable 02/14/21 10:05 Hypochromasia Not Reportable 02/14/21 10:05 Poikilocytosis Not Reportable 02/14/21 10:05 Anisocytosis Not Reportable 02/14/21 10:05 Microcytosis Not Reportable 02/14/21 10:05 Macrocytosis Not Reportable 02/14/21 10:05 Spherocytes Not Reportable 02/14/21 10:05 Pappenheimer Bodies Not Reportable 02/14/21 10:05 Sickle Cells Not Reportable 02/14/21 10:05 Target Cells Not Reportable 02/14/21 10:05 Tear Drop Cells Not Reportable 02/14/21 10:05 Ovalocytes Not Reportable 02/14/21 10:05 Helmet Cells Not Reportable 02/14/21 10:05 Nuñ[place] Bodies Not Reportable 02/14/21 10:05 [place] Rings Not Reportable 02/14/21 10:05 [place] Cells Not Reportable 02/14/21 10:05 Bite Cells Not Reportable 02/14/21 10:05 Crenated Cell Not Reportable 02/14/21 10:05 Elliptocytes Not Reportable 02/14/21 10:05 Acanthocytes (Spur) Not Reportable 02/14/21 10:05 Rouleaux Not Reportable 02/14/21 10:05 Hemoglobin C Crystals Not Reportable 02/14/21 10:05 Schistocytes Not Reportable 02/14/21 10:05 Malaria parasites Not Reportable 02/14/21 10:05 Gasper Bodies Not Reportable 02/14/21 10:05 Hem Pathologist Commnt No 02/14/21 10:05 PT 16.9 Sec. (12.2-14.9) H 02/13/21 16:13 INR 1.32 (0.87-1.13) H 02/13/21 16:13 D-Dimer 4286.34 ng/mlDDU (0-234) H 02/15/21 07:29 Sodium 135 mmol/L (137-145) L 02/20/21 07:58 Potassium 4.4 mmol/L (3.6-5.0) 02/20/21 07:58 Chloride 100.4 mmol/L (98-107) 02/20/21 07:58 Carbon Dioxide 23 mmol/L (22-30) 02/20/21 07:58 Anion Gap 16 mmol/L 02/20/21 07:58 BUN 20 mg/dL (9-20) 02/20/21 07:58 Creatinine 0.8 mg/dL (0.8-1.3) 02/20/21 07:58 Estimated GFR > 60 ml/min 02/20/21 07:58 BUN/Creatinine Ratio 25 % 02/20/21 07:58 Glucose 99 mg/dL (75-100) 02/20/21 07:58 POC Glucose 152 mg/dL (70-105) H 02/16/21 12:11 Hemoglobin A1c 6.7 % (4-6) H 02/14/21 10:05 Calcium 8.8 mg/dL (8.4-10.2) 02/20/21 07:58 Ferritin 1427.0 ng/mL (30.0-300.0) H 02/13/21 16:13 Total Bilirubin 0.30 mg/dL (0.1-1.2) 02/17/21 06:39 AST 48 units/L (5-40) H 02/17/21 06:39 ALT 96 units/L (7-56) H 02/17/21 06:39 Alkaline Phosphatase 150 units/L (35-129) H 02/17/21 06:39 Lactate Dehydrogenase 443 units/L (91-180) H 02/13/21 16:14 Troponin T < 0.010 ng/mL (0.00-0.029) 02/13/21 16:14 C-Reactive Protein 7.70 mg/dL (0.00-1.30) H 02/15/21 07:29 NT-Pro-B Natriuret Pep 236.4 pg/mL (0-900) 02/13/21 16:14 Total Protein 6.3 g/dL (6.3-8.2) 02/17/21 06:39 Albumin 2.7 g/dL (3.9-5) L 02/17/21 06:39 Albumin/Globulin Ratio 0.8 % 02/17/21 06:39 Procalcitonin 1.49 ng/mL (<0.15) 02/15/21 07:29 Coronavirus (PCR) Positive (Negative) A 02/13/21 08:30 Hepatitis A IgM Ab Non-reactive (NonReactive) 02/14/21 10:05 Hep Bs Antigen Non-reactive (Negative) 02/14/21 10:05 Hep B Core IgM Ab Reactive (NonReactive) A 02/14/21 10:05 Hepatitis C Antibody Non-reactive (NonReactive) 02/14/21 10:05 Santos/IV: Voiding Method Urinal Active Medications - Current Medications Current Medications: Generic Name Dose Route Start Last Admin Trade Name Freq PRN Reason Stop Dose Admin Acetaminophen 650 mg 02/13/21 21:48 Acetaminophen 325 Mg Tab PO Q4H PRN Pain MILD(1-3)/Fever >100.5/SALAS Hydrocodone Bitart/Acetaminophen 1 each 02/13/21 21:52 Hydrocodone/Acetaminophen 7.5-325mg Tab PO Q6H PRN Pain , Severe (7-10) Ascorbic Acid 1,000 mg 02/14/21 22:00 02/21/21 21:40 Ascorbic Acid 500 Mg Tab PO 1,000 mg BID ALIN Administration Cholecalciferol 5,000 unit 02/14/21 18:00 02/21/21 10:09 Cholecalciferol (Vit D3) 5,000 Unit Tab PO 5,000 unit DAILY ALIN Administration Dexamethasone 8 mg 02/18/21 11:00 02/21/21 10:08 Dexamethasone 4 Mg Tab PO 02/22/21 10:59 8 mg DAILY ALIN Administration Docusate Sodium 100 mg 02/13/21 22:00 02/21/21 21:41 Docusate Sodium 100 Mg Cap PO 100 mg BID ALIN Administration Enoxaparin Sodium 40 mg 02/13/21 22:00 02/21/21 21:40 Enoxaparin 40 Mg/0.4 Ml Inj SUB-Q 40 mg QDAY@2200 ALIN Administration Gabapentin 300 mg 02/13/21 22:00 02/22/21 06:04 Gabapentin 300 Mg Cap PO 300 mg Q8HR ALIN Administration Hydromorphone HCl 0.5 mg 02/13/21 21:48 Hydromorphone 1 Mg/1 Ml Inj IV Q3H PRN Pain , Severe (7-10) Metoclopramide HCl 10 mg 02/13/21 21:48 Metoclopramide 10 Mg/2 Ml Inj IV Q6H PRN Nausea And Vomiting Ondansetron HCl 4 mg 02/13/21 21:48 Ondansetron 4 Mg/2 Ml Inj IV Q8H PRN Nausea And Vomiting Pantoprazole Sodium 40 mg 02/14/21 07:30 02/21/21 10:08 Pantoprazole 40 Mg Tab PO 40 mg QDAC ALIN Administration Sodium Chloride 10 ml 02/13/21 22:00 02/21/21 21:42 Sodium Chloride 0.9% 10 Ml Flush Syringe IV 10 ml BID ALIN Administration Sodium Chloride 10 ml 02/13/21 21:48 Sodium Chloride 0.9% 10 Ml Flush Syringe IV PRN PRN LINE FLUSH Zinc Sulfate 220 mg 02/14/21 22:00 02/21/21 21:40 Zinc Sulfate 220 Mg Cap PO 220 mg BID ALIN Administration Nutrition/Malnutrition Assess - Dietary Evaluation Nutrition/Malnutrition Findings: Nutrition Notes Start: 02/20/21 08:55 Freq: Status: Active Protocol: Document 02/20/21 08:55 (Rec: 02/20/21 08:56 [email or web address]) Nutrition Notes Need for Assessment generated from: LOS Initial or Follow up Brief Note Subjective/Other Information Screen for LOS. Pt eating 100% of meals. Nutrition Intervention Revisit per MD consult or patient Sign Off request:
[2021-02-22] MEDS: PANTOPRAZOLE 40 MG TAB PO SCH (08:39)
[2021-02-22] MEDS: DEXAMETHASONE 4 MG TAB PO SCH (10:10)
[2021-02-22] MEDS: CHOLECALCIFEROL (VIT D3) 5,000 UNIT TAB PO SCH (10:11)
[2021-02-22] MEDS: DOCUSATE SODIUM 100 MG CAP PO SCH ×2 (10:11→21:43)
[2021-02-22] MEDS: ASCORBIC ACID 500 MG TAB PO SCH ×2 (10:11→21:43)
[2021-02-22] MEDS: ZINC SULFATE 220 MG CAP PO SCH ×2 (10:11→21:43)
[2021-02-22] MEDS: ENOXAPARIN 40 MG/0.4 ML INJ SUB-Q SCH (21:43)
[2021-02-23] MEDS: GABAPENTIN 300 MG CAP PO SCH ×3 (05:51→22:42)
--- NOTE | 2021-02-23 08:29 | Progress Note ---
Assessment and Plan Assessment and plan: (1) Acute respiratory failure with hypoxia Supplemental oxygen, pulse oximetry, nebulizer therapy, noninvasive positive pressure ventilation as clinically indicated. (2) Bilateral pneumonia Pneumonia protocol: IV antibiotic therapy, supplemental oxygen, pulse oximetry, blood culture. (3) SIRS (systemic inflammatory response syndrome) Patient does not meet criteria for sepsis given normal WBC, no tachycardia, AMS or fever on admission. (4) COVID-19 virus infection Covid PCR positive on 02/13. Continue dexamethasone and remdesivir. Continue to follow of anti-inflammatory markers. (5) Disposition Await physical therapy evaluation for placement. (6) DVT prophylaxis SCD to bilateral lower extremities while in bed, prophylactic anticoagulation 02/21/2021. Patient currently with 4 L of oxygen. Continue Covid protocol. Continue dexamethasone per ID recommendations and completed antibiotics and remdesivir. Continue to trend inflammatory markers. 02/22/2021. Patient currently with 4 L of oxygen. Continue Covid protocol. Continue dexamethasone per ID recommendations and completed antibiotics and remdesivir. Continue to trend inflammatory markers. 02/23/2021. Continue to wean oxygen as tolerated. Continue dexamethasone per ID recommendations and completed antibiotics and remdesivir. Continue to trend inflammatory markers. History Interval history: 65 YO Male HD#3 with systemic inflammatory response syndrome, acute respiratory failure with hypoxemia, bilateral pneumonia, coronavirus infection. Patient resting comfortably in bed. No reported nursing events overnight. Patient denies pain. Patient reports continued shortness of breath. Hospitalist Physical - Constitutional Vitals: Temp Pulse Resp BP Pulse Ox 98.7 F 69 20 144/91 99 02/23/21 06:09 02/23/21 06:09 02/23/21 06:09 02/23/21 06:09 02/23/21 08:22 General appearance: Present: no acute distress, well-nourished - EENT Eyes: Present: PERRL, EOM intact ENT: hearing intact, clear oral mucosa, dentition normal - Neck Neck: Present: supple, normal ROM - Respiratory Respiratory effort: normal Respiratory: bilateral: CTA - Cardiovascular Rhythm: regular Heart Sounds: Present: S1 & S2. Absent: gallop, rub - Extremities Extremities: no ischemia, No edema, Full ROM - Abdominal General gastrointestinal: soft, non-tender, non-distended, normal bowel sounds - Integumentary Integumentary: Present: clear, warm, dry - Neurologic Neurologic: CNII-XII intact, moves all extremities HEART Score - HEART Score Troponin: Troponin T < 0.010 ng/mL (0.00-0.029) 02/13/21 16:14 Results - Labs CBC & Chem 7: 02/20/21 07:58 02/20/21 07:58 Labs: Laboratory Last Values WBC 6.2 K/mm3 (4.5-11.0) 02/20/21 07:58 RBC 4.52 M/mm3 (3.65-5.03) 02/20/21 07:58 Hgb 12.7 gm/dl (11.8-15.2) 02/20/21 07:58 Hct 38.0 % (35.5-45.6) 02/20/21 07:58 MCV 84 fl (84-94) 02/20/21 07:58 MCH 28 pg (28-32) 02/20/21 07:58 MCHC 33 % (32-34) 02/20/21 07:58 RDW 16.2 % (13.2-15.2) H 02/20/21 07:58 Plt Count 291 K/mm3 (140-440) 02/20/21 07:58 Lymph % (Auto) 21.9 % (13.4-35.0) 02/20/21 07:58 [place] % (Auto) 14.9 % (0.0-7.3) H 02/20/21 07:58 Eos % (Auto) 0.1 % (0.0-4.3) 02/20/21 07:58 Baso % (Auto) 0.2 % (0.0-1.8) 02/20/21 07:58 Lymph # (Auto) 1.4 K/mm3 (1.2-5.4) 02/20/21 07:58 [place] # (Auto) 0.9 K/mm3 (0.0-0.8) H 02/20/21 07:58 Eos # (Auto) 0.0 K/mm3 (0.0-0.4) 02/20/21 07:58 Baso # (Auto) 0.0 K/mm3 (0.0-0.1) 02/20/21 07:58 Add Manual Diff Complete 02/14/21 10:05 Total Counted 100 02/14/21 10:05 Seg Neutrophils % 62.9 % (40.0-70.0) 02/20/21 07:58 Seg Neuts % (Manual) 83.0 % (40.0-70.0) H 02/14/21 10:05 Lymphocytes % (Manual) 13.0 % (13.4-35.0) L 02/14/21 10:05 Monocytes % (Manual) 3.0 % (0.0-7.3) 02/14/21 10:05 Myelocytes % 1.0 % 02/14/21 10:05 Nucleated RBC % Not Reportable 02/14/21 10:05 Seg Neutrophils # 3.9 K/mm3 (1.8-7.7) 02/20/21 07:58 Seg Neutrophils # Man 6.9 K/mm3 (1.8-7.7) 02/14/21 10:05 Band Neutrophils # 0.0 K/mm3 02/14/21 10:05 Lymphocytes # (Manual) 1.1 K/mm3 (1.2-5.4) L 02/14/21 10:05 Abs React Lymphs (Man) 0.0 K/mm3 02/14/21 10:05 Monocytes # (Manual) 0.2 K/mm3 (0.0-0.8) 02/14/21 10:05 Eosinophils # (Manual) 0.0 K/mm3 (0.0-0.4) 02/14/21 10:05 Basophils # (Manual) 0.0 K/mm3 (0.0-0.1) 02/14/21 10:05 Metamyelocytes # 0.0 K/mm3 02/14/21 10:05 Myelocytes # 0.1 K/mm3 02/14/21 10:05 Promyelocytes # 0.0 K/mm3 02/14/21 10:05 Blast Cells # 0.0 K/mm3 02/14/21 10:05 WBC Morphology Not Reportable 02/14/21 10:05 Hypersegmented Neuts Not Reportable 02/14/21 10:05 Hyposegmented Neuts Not Reportable 02/14/21 10:05 Hypogranular Neuts Not Reportable 02/14/21 10:05 Smudge Cells Not Reportable 02/14/21 10:05 Toxic Granulation Not Reportable 02/14/21 10:05 Toxic Vacuolation Not Reportable 02/14/21 10:05 Dohle Bodies Not Reportable 02/14/21 10:05 Pelger-Huet Anomaly Not Reportable 02/14/21 10:05 Timothy Rods Not Reportable 02/14/21 10:05 Platelet Estimate Consistent w auto 02/14/21 10:05 Clumped Platelets Not Reportable 02/14/21 10:05 Plt Clumps, EDTA Not Reportable 02/14/21 10:05 Large Platelets Not Reportable 02/14/21 10:05 Giant Platelets Not Reportable 02/14/21 10:05 Platelet Satelliting Not Reportable 02/14/21 10:05 Plt Morphology Comment Not Reportable 02/14/21 10:05 RBC Morphology Normal 02/14/21 10:05 Dimorphic RBCs Not Reportable 02/14/21 10:05 Polychromasia Not Reportable 02/14/21 10:05 Hypochromasia Not Reportable 02/14/21 10:05 Poikilocytosis Not Reportable 02/14/21 10:05 Anisocytosis Not Reportable 02/14/21 10:05 Microcytosis Not Reportable 02/14/21 10:05 Macrocytosis Not Reportable 02/14/21 10:05 Spherocytes Not Reportable 02/14/21 10:05 Pappenheimer Bodies Not Reportable 02/14/21 10:05 Sickle Cells Not Reportable 02/14/21 10:05 Target Cells Not Reportable 02/14/21 10:05 Tear Drop Cells Not Reportable 02/14/21 10:05 Ovalocytes Not Reportable 02/14/21 10:05 Helmet Cells Not Reportable 02/14/21 10:05 Nuñ[place] Bodies Not Reportable 02/14/21 10:05 [place] Rings Not Reportable 02/14/21 10:05 [place] Cells Not Reportable 02/14/21 10:05 Bite Cells Not Reportable 02/14/21 10:05 Crenated Cell Not Reportable 02/14/21 10:05 Elliptocytes Not Reportable 02/14/21 10:05 Acanthocytes (Spur) Not Reportable 02/14/21 10:05 Rouleaux Not Reportable 02/14/21 10:05 Hemoglobin C Crystals Not Reportable 02/14/21 10:05 Schistocytes Not Reportable 02/14/21 10:05 Malaria parasites Not Reportable 02/14/21 10:05 Gasper Bodies Not Reportable 02/14/21 10:05 Hem Pathologist Commnt No 02/14/21 10:05 PT 16.9 Sec. (12.2-14.9) H 02/13/21 16:13 INR 1.32 (0.87-1.13) H 02/13/21 16:13 D-Dimer 4286.34 ng/mlDDU (0-234) H 02/15/21 07:29 Sodium 135 mmol/L (137-145) L 02/20/21 07:58 Potassium 4.4 mmol/L (3.6-5.0) 02/20/21 07:58 Chloride 100.4 mmol/L (98-107) 02/20/21 07:58 Carbon Dioxide 23 mmol/L (22-30) 02/20/21 07:58 Anion Gap 16 mmol/L 02/20/21 07:58 BUN 20 mg/dL (9-20) 02/20/21 07:58 Creatinine 0.8 mg/dL (0.8-1.3) 02/20/21 07:58 Estimated GFR > 60 ml/min 02/20/21 07:58 BUN/Creatinine Ratio 25 % 02/20/21 07:58 Glucose 99 mg/dL (75-100) 02/20/21 07:58 POC Glucose 152 mg/dL (70-105) H 02/16/21 12:11 Hemoglobin A1c 6.7 % (4-6) H 02/14/21 10:05 Calcium 8.8 mg/dL (8.4-10.2) 02/20/21 07:58 Ferritin 1427.0 ng/mL (30.0-300.0) H 02/13/21 16:13 Total Bilirubin 0.30 mg/dL (0.1-1.2) 02/17/21 06:39 AST 48 units/L (5-40) H 02/17/21 06:39 ALT 96 units/L (7-56) H 02/17/21 06:39 Alkaline Phosphatase 150 units/L (35-129) H 02/17/21 06:39 Lactate Dehydrogenase 443 units/L (91-180) H 02/13/21 16:14 Troponin T < 0.010 ng/mL (0.00-0.029) 02/13/21 16:14 C-Reactive Protein 7.70 mg/dL (0.00-1.30) H 02/15/21 07:29 NT-Pro-B Natriuret Pep 236.4 pg/mL (0-900) 02/13/21 16:14 Total Protein 6.3 g/dL (6.3-8.2) 02/17/21 06:39 Albumin 2.7 g/dL (3.9-5) L 02/17/21 06:39 Albumin/Globulin Ratio 0.8 % 02/17/21 06:39 Procalcitonin 1.49 ng/mL (<0.15) 02/15/21 07:29 Coronavirus (PCR) Positive (Negative) A 02/13/21 08:30 Hepatitis A IgM Ab Non-reactive (NonReactive) 02/14/21 10:05 Hep Bs Antigen Non-reactive (Negative) 02/14/21 10:05 Hep B Core IgM Ab Reactive (NonReactive) A 02/14/21 10:05 Hepatitis C Antibody Non-reactive (NonReactive) 02/14/21 10:05 Santos/IV: Voiding Method Urinal Active Medications - Current Medications Current Medications: Generic Name Dose Route Start Last Admin Trade Name Freq PRN Reason Stop Dose Admin Acetaminophen 650 mg 02/13/21 21:48 Acetaminophen 325 Mg Tab PO Q4H PRN Pain MILD(1-3)/Fever >100.5/SALAS Hydrocodone Bitart/Acetaminophen 1 each 02/13/21 21:52 Hydrocodone/Acetaminophen 7.5-325mg Tab PO Q6H PRN Pain , Severe (7-10) Ascorbic Acid 1,000 mg 02/14/21 22:00 02/22/21 21:43 Ascorbic Acid 500 Mg Tab PO 1,000 mg BID ALIN Administration Cholecalciferol 5,000 unit 02/14/21 18:00 02/22/21 10:11 Cholecalciferol (Vit D3) 5,000 Unit Tab PO 5,000 unit DAILY ALIN Administration Docusate Sodium 100 mg 02/13/21 22:00 02/22/21 21:43 Docusate Sodium 100 Mg Cap PO 100 mg BID ALIN Administration Enoxaparin Sodium 40 mg 02/13/21 22:00 02/22/21 21:43 Enoxaparin 40 Mg/0.4 Ml Inj SUB-Q 40 mg QDAY@2200 ALIN Administration Gabapentin 300 mg 02/13/21 22:00 02/23/21 05:51 Gabapentin 300 Mg Cap PO 300 mg Q8HR ALIN Administration Hydromorphone HCl 0.5 mg 02/13/21 21:48 Hydromorphone 1 Mg/1 Ml Inj IV Q3H PRN Pain , Severe (7-10) Metoclopramide HCl 10 mg 02/13/21 21:48 Metoclopramide 10 Mg/2 Ml Inj IV Q6H PRN Nausea And Vomiting Ondansetron HCl 4 mg 02/13/21 21:48 Ondansetron 4 Mg/2 Ml Inj IV Q8H PRN Nausea And Vomiting Pantoprazole Sodium 40 mg 02/14/21 07:30 02/22/21 08:39 Pantoprazole 40 Mg Tab PO 40 mg QDAC ALIN Administration Sodium Chloride 10 ml 02/13/21 22:00 02/22/21 21:44 Sodium Chloride 0.9% 10 Ml Flush Syringe IV 10 ml BID ALIN Administration Sodium Chloride 10 ml 02/13/21 21:48 Sodium Chloride 0.9% 10 Ml Flush Syringe IV PRN PRN LINE FLUSH Zinc Sulfate 220 mg 02/14/21 22:00 02/22/21 21:43 Zinc Sulfate 220 Mg Cap PO 220 mg BID ALIN Administration Nutrition/Malnutrition Assess - Dietary Evaluation Nutrition/Malnutrition Findings: Nutrition Notes Start: 02/20/21 08:55 Freq: Status: Active Protocol: Document 02/20/21 08:55 (Rec: 02/20/21 08:56 [id number]) Nutrition Notes Need for Assessment generated from: LOS Initial or Follow up Brief Note Subjective/Other Information Screen for LOS. Pt eating 100% of meals. Nutrition Intervention Revisit per MD consult or patient Sign Off request:
[2021-02-23 08:32] LABS: Basophils % (Auto) 0.2 % (0.0-1.8); Eosinophils % (Auto) 0.4 % (0.0-4.3); Hemoglobin 12.5 gm/dl (11.8-15.2); Lymphocytes # (Auto) 1.9 K/mm3 (1.2-5.4); Lymphocytes % (Auto) 18.4 % (13.4-35.0); Mean Corpuscular HGB Conc 33 % (32-34); Mean Corpuscular Volume 85 fl (84-94); Monocytes % (Auto) 9.7 % (0.0-7.3); Platelet Count 272 K/mm3 (140-440); Red Blood Count 4.44 M/mm3 (3.65-5.03); Red Cell Distribution Width 16.2 % (13.2-15.2)
[2021-02-23] MEDS: PANTOPRAZOLE 40 MG TAB PO SCH (08:38)
[2021-02-23 08:57] LABS: Blood Urea Nitrogen 13 mg/dL (9-20); Calcium 8.9 mg/dL (8.4-10.2); Hemolysis Index 3
[2021-02-23 08:59] LABS: BUN/Creatinine Ratio 19
[2021-02-23] MEDS: ASCORBIC ACID 500 MG TAB PO SCH ×2 (09:45→22:42)
[2021-02-23] MEDS: CHOLECALCIFEROL (VIT D3) 5,000 UNIT TAB PO SCH (09:45)
[2021-02-23] MEDS: DOCUSATE SODIUM 100 MG CAP PO SCH ×3 (09:45→22:44)
[2021-02-23] MEDS: ZINC SULFATE 220 MG CAP PO SCH ×2 (10:14→22:42)
[2021-02-23] MEDS: ENOXAPARIN 40 MG/0.4 ML INJ SUB-Q SCH (22:42)
[2021-02-24] MEDS: GABAPENTIN 300 MG CAP PO SCH ×3 (06:10→22:38)
--- NOTE | 2021-02-24 08:02 | Discharge Summary ---
Providers - Providers Date of Admission: 02/13/21 17:05 Date of discharge: 02/24/21 Attending physician: URBAN BURTON 02/13/21 21:48 Consult to Physician [CONS] Routine Comment: Consulting Provider: DOLORES SANCHEZ Physician Instructions: Reason For Exam: COVID-pneumonia 02/18/21 10:56 Physical Therapy Evaluation and Treat [CONS] Stat Comment: Reason For Exam: eval and treat 02/18/21 10:57 Occupational Therapy Evaluate and Treat [CONS] Stat Comment: Reason For Exam: eval and treat Primary care physician: DRAFTER [employer]IGN Hospitalization Reason for admission: resp failure Condition: Serious Hospital course: The patient is a 65-year-old male with prostate cancer admitted to the hospital with cough and shortness of breath going on for a few days. Patient was diagnosed with COVID-19 1 week ago [employer]. Due to worsening shortness of breath and hypoxia at home, came to the ER. Pt was placed on nonrebreather in the ER. Patient is unvaccinated. Infectious diseases was consulted for additional evaluation. Labs revealed normal WBC, D-dimer 7939, transaminitis, CRP 32.0, procalcitonin 4.9, ferritin 1427. Hepatitis B core IgM reactive. Pt treated with dexamethasone and remdesivir and empiric antibiotics. Pt received prophylactic anticoagulation. Patient qualified for home oxygen based on exercise pulse oximetry testing. ID okayed the discharge. Dedicated discharge time 35 minutes. Patient is to follow-up hepatitis B DNA PCR with ID. Disposition: DC- TO HOME OR SELFCARE Final Discharge Diagnosis (Prints w/discharge instructions): Bilateral COVID-19 pneumonia, acute hypoxic respiratory failure, transaminitis, hepatitis B serolo gy. Core Measure Documentation - Palliative Care Palliative Care/ Comfort Measures: Not Applicable - Core Measures Any of the following diagnoses?: none Exam - Constitutional Vitals: Temp Pulse Resp BP Pulse Ox 98.8 F 77 16 113/68 98 02/24/21 04:41 02/24/21 04:41 02/24/21 04:41 02/24/21 04:41 02/24/21 04:41 General appearance: Present: no acute distress, well-nourished - EENT Eyes: Present: PERRL ENT: hearing intact, clear oral mucosa - Neck Neck: Present: supple, normal ROM - Respiratory Respiratory effort: normal Respiratory: bilateral: CTA - Cardiovascular Heart Sounds: Present: S1 & S2. Absent: rub, click - Extremities Extremities: pulses symmetrical, No edema Peripheral Pulses: within normal limits - Abdominal General gastrointestinal: Present: soft, non-tender, non-distended, normal bowel sounds Male genitourinary: Present: normal - Integumentary Integumentary: Present: clear, warm, dry - Musculoskeletal Musculoskeletal: gait normal, strength equal bilaterally - Psychiatric Psychiatric: appropriate mood/affect, intact judgment & insight - Neurologic Neurologic: CNII-XII intact, moves all extremities Plan Activity: advance as tolerated Weight Bearing Status: Weight Bear as Tolerated Diet: regular Durable Medical Equipment Needed Upon Discharge: Oxygen Follow up with: PRIMARY CARE, [Primary Care Provider] - 3-5 Days DOLORES SANCHEZ MD [Staff Physician] - 7 Days Prescriptions: Gabapentin 300 mg PO Q8HR #90 cap Omeprazole 40 mg PO QAM #30 Ascorbic Acid [Vitamin C] 1,000 mg PO BID #60 tablet Cholecalciferol (Vitamin D3) [Vitamin D3] 5,000 unit PO DAILY #30 tablet
[2021-02-24] MEDS: CHOLECALCIFEROL (VIT D3) 5,000 UNIT TAB PO SCH (10:08)
[2021-02-24] MEDS: DOCUSATE SODIUM 100 MG CAP PO SCH ×2 (10:08→22:38)
[2021-02-24] MEDS: ZINC SULFATE 220 MG CAP PO SCH ×2 (10:08→22:38)
[2021-02-24] MEDS: PANTOPRAZOLE 40 MG TAB PO SCH (10:08)
[2021-02-24] MEDS: ASCORBIC ACID 500 MG TAB PO SCH ×2 (10:08→22:38)
[2021-02-24] MEDS: ENOXAPARIN 40 MG/0.4 ML INJ SUB-Q SCH (22:38)
[2021-02-25] MEDS: GABAPENTIN 300 MG CAP PO SCH ×3 (05:38→23:11)
[2021-02-25] MEDS: ASCORBIC ACID 500 MG TAB PO SCH ×2 (10:12→23:11)
[2021-02-25] MEDS: CHOLECALCIFEROL (VIT D3) 5,000 UNIT TAB PO SCH (10:12)
[2021-02-25] MEDS: ZINC SULFATE 220 MG CAP PO SCH ×2 (10:12→23:11)
[2021-02-25] MEDS: PANTOPRAZOLE 40 MG TAB PO SCH (10:13)
[2021-02-25] MEDS: DOCUSATE SODIUM 100 MG CAP PO SCH ×2 (10:13→23:11)
--- NOTE | 2021-02-25 14:06 | Progress Note ---
Assessment and Plan Assessment and plan: (1) Acute respiratory failure with hypoxia Supplemental oxygen, pulse oximetry, nebulizer therapy, noninvasive positive pressure ventilation as clinically indicated. (2) Bilateral pneumonia Pneumonia protocol: IV antibiotic therapy, supplemental oxygen, pulse oximetry, blood culture. (3) SIRS (systemic inflammatory response syndrome) Patient does not meet criteria for sepsis given normal WBC, no tachycardia, AMS or fever on admission. (4) COVID-19 virus infection Covid PCR positive on 02/13. Continue dexamethasone and remdesivir. Continue to follow of anti-inflammatory markers. (5) Disposition Await physical therapy evaluation for placement. (6) DVT prophylaxis SCD to bilateral lower extremities while in bed, prophylactic anticoagulation 02/21/2021. Patient currently with 4 L of oxygen. Continue Covid protocol. Continue dexamethasone per ID recommendations and completed antibiotics and remdesivir. Continue to trend inflammatory markers. 02/22/2021. Patient currently with 4 L of oxygen. Continue Covid protocol. Continue dexamethasone per ID recommendations and completed antibiotics and remdesivir. Continue to trend inflammatory markers. 02/23/2021. Continue to wean oxygen as tolerated. Continue dexamethasone per ID recommendations and completed antibiotics and remdesivir. Continue to trend inflammatory markers. 02/25/2021: Awaiting home oxygen set up by CM. Discussion during rounds. Patient has good social support with son who will help admin medical care. Home health care set up to follow patient outpatient. Conditional d/c pending set up of afore mentioned O2. History Interval history: No acute overnight events. Awaiting set up of home oxygen. D/w CM and RN team, can be discharged home. Hospitalist Physical - Physical exam Narrative exam: General appearance: Present: no acute distress, well-nourished - EENT Eyes: Present: PERRL ENT: hearing intact, clear oral mucosa - Neck Neck: Present: supple, normal ROM - Respiratory Respiratory effort: normal Respiratory: bilateral: CTA - Cardiovascular Heart Sounds: Present: S1 & S2. Absent: rub, click - Extremities Extremities: pulses symmetrical, No edema Peripheral Pulses: within normal limits - Abdominal General gastrointestinal: Present: soft, non-tender, non-distended, normal bowel sounds Male genitourinary: Present: normal - Integumentary Integumentary: Present: clear, warm, dry - Musculoskeletal Musculoskeletal: gait normal, strength equal bilaterally - Psychiatric Psychiatric: appropriate mood/affect, intact judgment & insight - Neurologic Neurologic: CNII-XII intact, moves all extremities - Constitutional Vitals: Temp Pulse Resp BP Pulse Ox 99.1 F 84 16 106/67 97 02/25/21 04:37 02/25/21 04:37 02/25/21 04:37 02/25/21 04:37 02/25/21 09:12 General appearance: Present: no acute distress, well-nourished HEART Score - HEART Score Troponin: Troponin T < 0.010 ng/mL (0.00-0.029) 02/13/21 16:14 Results - Labs CBC & Chem 7: 02/23/21 07:23 02/23/21 07:23 Labs: Laboratory Last Values WBC 10.4 K/mm3 (4.5-11.0) 02/23/21 07:23 RBC 4.44 M/mm3 (3.65-5.03) 02/23/21 07:23 Hgb 12.5 gm/dl (11.8-15.2) 02/23/21 07:23 Hct 38.0 % (35.5-45.6) 02/23/21 07:23 MCV 85 fl (84-94) 02/23/21 07:23 MCH 28 pg (28-32) 02/23/21 07:23 MCHC 33 % (32-34) 02/23/21 07:23 RDW 16.2 % (13.2-15.2) H 02/23/21 07:23 Plt Count 272 K/mm3 (140-440) 02/23/21 07:23 Lymph % (Auto) 18.4 % (13.4-35.0) 02/23/21 07:23 [place] % (Auto) 9.7 % (0.0-7.3) H 02/23/21 07:23 Eos % (Auto) 0.4 % (0.0-4.3) 02/23/21 07:23 Baso % (Auto) 0.2 % (0.0-1.8) 02/23/21 07:23 Lymph # (Auto) 1.9 K/mm3 (1.2-5.4) 02/23/21 07:23 [place] # (Auto) 1.0 K/mm3 (0.0-0.8) H 02/23/21 07:23 Eos # (Auto) 0.0 K/mm3 (0.0-0.4) 02/23/21 07: Baso # (Auto) 0.0 K/mm3 (0.0-0.1) 02/23/21 07:23 Add Manual Diff Complete 02/14/21 10:05 Total Counted 100 02/14/21 10:05 Seg Neutrophils % 71.3 % (40.0-70.0) H 02/23/21 07:23 Seg Neuts % (Manual) 83.0 % (40.0-70.0) H 02/14/21 10:05 Lymphocytes % (Manual) 13.0 % (13.4-35.0) L 02/14/21 10:05 Monocytes % (Manual) 3.0 % (0.0-7.3) 02/14/21 10:05 Myelocytes % 1.0 % 02/14/21 10:05 Nucleated RBC % Not Reportable 02/14/21 10:05 Seg Neutrophils # 7.4 K/mm3 (1.8-7.7) 02/23/21 07:23 Seg Neutrophils # Man 6.9 K/mm3 (1.8-7.7) 02/14/21 10:05 Band Neutrophils # 0.0 K/mm3 02/14/21 10:05 Lymphocytes # (Manual) 1.1 K/mm3 (1.2-5.4) L 02/14/21 10:05 Abs React Lymphs (Man) 0.0 K/mm3 02/14/21 10:05 Monocytes # (Manual) 0.2 K/mm3 (0.0-0.8) 02/14/21 10:05 Eosinophils # (Manual) 0.0 K/mm3 (0.0-0.4) 02/14/21 10:05 Basophils # (Manual) 0.0 K/mm3 (0.0-0.1) 02/14/21 10:05 Metamyelocytes # 0.0 K/mm3 02/14/21 10:05 Myelocytes # 0.1 K/mm3 02/14/21 10:05 Promyelocytes # 0.0 K/mm3 02/14/21 10:05 Blast Cells # 0.0 K/mm3 02/14/21 10:05 WBC Morphology Not Reportable 02/14/21 10:05 Hypersegmented Neuts Not Reportable 02/14/21 10:05 Hyposegmented Neuts Not Reportable 02/14/21 10:05 Hypogranular Neuts Not Reportable 02/14/21 10:05 Smudge Cells Not Reportable 02/14/21 10:05 Toxic Granulation Not Reportable 02/14/21 10:05 Toxic Vacuolation Not Reportable 02/14/21 10:05 Dohle Bodies Not Reportable 02/14/21 10:05 Pelger-Huet Anomaly Not Reportable 02/14/21 10:05 Timothy Rods Not Reportable 02/14/21 10:05 Platelet Estimate Consistent w auto 02/14/21 10:05 Clumped Platelets Not Reportable 02/14/21 10:05 Plt Clumps, EDTA Not Reportable 02/14/21 10:05 Large Platelets Not Reportable 02/14/21 10:05 Giant Platelets Not Reportable 02/14/21 10:05 Platelet Satelliting Not Reportable 02/14/21 10:05 Plt Morphology Comment Not Reportable 02/14/21 10:05 RBC Morphology Normal 02/14/21 10:05 Dimorphic RBCs Not Reportable 02/14/21 10:05 Polychromasia Not Reportable 02/14/21 10:05 Hypochromasia Not Reportable 02/14/21 10:05 Poikilocytosis Not Reportable 02/14/21 10:05 Anisocytosis Not Reportable 02/14/21 10:05 Microcytosis Not Reportable 02/14/21 10:05 Macrocytosis Not Reportable 02/14/21 10:05 Spherocytes Not Reportable 02/14/21 10:05 Pappenheimer Bodies Not Reportable 02/14/21 10:05 Sickle Cells Not Reportable 02/14/21 10:05 Target Cells Not Reportable 02/14/21 10:05 Tear Drop Cells Not Reportable 02/14/21 10:05 Ovalocytes Not Reportable 02/14/21 10:05 Helmet Cells Not Reportable 02/14/21 10:05 [place] Bodies Not Reportable 02/14/21 10:05 [place] Rings Not Reportable 02/14/21 10:05 [place] Cells Not Reportable 02/14/21 10:05 Bite Cells Not Reportable 02/14/21 10:05 Crenated Cell Not Reportable 02/14/21 10:05 Elliptocytes Not Reportable 02/14/21 10:05 Acanthocytes (Spur) Not Reportable 02/14/21 10:05 Rouleaux Not Reportable 02/14/21 10:05 Hemoglobin C Crystals Not Reportable 02/14/21 10:05 Schistocytes Not Reportable 02/14/21 10:05 Malaria parasites Not Reportable 02/14/21 10:05 [place] Bodies Not Reportable 02/14/21 10:05 Hem Pathologist Commnt No 02/14/21 10:05 PT 16.9 Sec. (12.2-14.9) H 02/13/21 16:13 INR 1.32 (0.87-1.13) H 02/13/21 16:13 D-Dimer 4286.34 ng/mlDDU (0-234) H 02/15/21 07:29 Sodium 136 mmol/L (137-145) L 02/23/21 07:23 Potassium 4.6 mmol/L (3.6-5.0) 02/23/21 07:23 Chloride 99.2 mmol/L (98-107) 02/23/21 07:23 Carbon Dioxide 28 mmol/L (22-30) 02/23/21 07:23 Anion Gap 13 mmol/L 02/23/21 07:23 BUN 13 mg/dL (9-20) 02/23/21 07:23 Creatinine 0.7 mg/dL (0.8-1.3) L 02/23/21 07:23 Estimated GFR > 60 ml/min 02/23/21 07:23 BUN/Creatinine Ratio 19 % 02/23/21 07:23 Glucose 83 mg/dL (75-100) 02/23/21 07:23 POC Glucose 152 mg/dL (70-105) H 02/16/21 12:11 Hemoglobin A1c 6.7 % (4-6) H 02/14/21 10:05 Calcium 8.9 mg/dL (8.4-10.2) 02/23/21 07:23 Ferritin 1427.0 ng/mL (30.0-300.0) H 02/13/21 16:13 Total Bilirubin 0.30 mg/dL (0.1-1.2) 02/17/21 06:39 AST 48 units/L (5-40) H 02/17/21 06:39 ALT 96 units/L (7-56) H 02/17/21 06:39 Alkaline Phosphatase 150 units/L (35-129) H 02/17/21 06:39 Lactate Dehydrogenase 443 units/L (91-180) H 02/13/21 16:14 Troponin T < 0.010 ng/mL (0.00-0.029) 02/13/21 16:14 C-Reactive Protein 7.70 mg/dL (0.00-1.30) H 02/15/21 07:29 NT-Pro-B Natriuret Pep 236.4 pg/mL (0-900) 02/13/21 16:14 Total Protein 6.3 g/dL (6.3-8.2) 02/17/21 06:39 Albumin 2.7 g/dL (3.9-5) L 02/17/21 06:39 Albumin/Globulin Ratio 0.8 % 02/17/21 06:39 Procalcitonin 1.49 ng/mL (<0.15) 02/15/21 07:29 Coronavirus (PCR) Positive (Negative) A 02/13/21 08:30 Hepatitis A IgM Ab Non-reactive (NonReactive) 02/14/21 10:05 Hep Bs Antigen Non-reactive (Negative) 02/14/21 10:05 Hep B Core IgM Ab Reactive (NonReactive) A 02/14/21 10:05 Hepatitis C Antibody Non-reactive (NonReactive) 02/14/21 10:05 Santos/IV: Voiding Method Urinal Active Medications - Current Medications Current Medications: Generic Name Dose Route Start Last Admin Trade Name Freq PRN Reason Stop Dose Admin Acetaminophen 650 mg 02/13/21 21:48 Acetaminophen 325 Mg Tab PO Q4H PRN Pain MILD(1-3)/Fever >100.5/SALAS Hydrocodone Bitart/Acetaminophen 1 each 02/13/21 21:52 Hydrocodone/Acetaminophen 7.5-325mg Tab PO Q6H PRN Pain , Severe (7-10) Ascorbic Acid 1,000 mg 02/14/21 22:00 02/25/21 10:12 Ascorbic Acid 500 Mg Tab PO 1,000 mg BID ALIN Administration Cholecalciferol 5,000 unit 02/14/21 18:00 02/25/21 10:12 Cholecalciferol (Vit D3) 5,000 Unit Tab PO 5,000 unit DAILY ALIN Administration Docusate Sodium 100 mg 02/13/21 22:00 02/25/21 10:13 Docusate Sodium 100 Mg Cap PO 100 mg BID ALIN Administration Enoxaparin Sodium 40 mg 02/13/21 22:00 02/24/21 22:38 Enoxaparin 40 Mg/0.4 Ml Inj SUB-Q 40 mg QDAY@2200 ALIN Administration Gabapentin 300 mg 02/13/21 22:00 02/25/21 13:35 Gabapentin 300 Mg Cap PO 300 mg Q8HR ALIN Administration Hydromorphone HCl 0.5 mg 02/13/21 21:48 Hydromorphone 1 Mg/1 Ml Inj IV Q3H PRN Pain , Severe (7-10) Metoclopramide HCl 10 mg 02/13/21 21:48 Metoclopramide 10 Mg/2 Ml Inj IV Q6H PRN Nausea And Vomiting Ondansetron HCl 4 mg 02/13/21 21:48 Ondansetron 4 Mg/2 Ml Inj IV Q8H PRN Nausea And Vomiting Pantoprazole Sodium 40 mg 02/14/21 07:30 02/25/21 10:13 Pantoprazole 40 Mg Tab PO 40 mg QDAC ALIN Administration Sodium Chloride 10 ml 02/13/21 22:00 02/25/21 10:13 Sodium Chloride 0.9% 10 Ml Flush Syringe IV 10 ml BID ALIN Administration Sodium Chloride 10 ml 02/13/21 21:48 Sodium Chloride 0.9% 10 Ml Flush Syringe IV PRN PRN LINE FLUSH Zinc Sulfate 220 mg 02/14/21 22:00 02/25/21 10:12 Zinc Sulfate 220 Mg Cap PO 220 mg BID ALIN Administration Nutrition/Malnutrition Assess - Dietary Evaluation Nutrition/Malnutrition Findings: Nutrition Notes Start: 02/20/21 08:55 Freq: Status: Active Protocol: Document 02/20/21 08:55 LILLIANA (Rec: 02/20/21 08:56 LILLIANA [id number]) Nutrition Notes Need for Assessment generated from: LOS Initial or Follow up Brief Note Subjective/Other Information Screen for LOS. Pt eating 100% of meals. Nutrition Intervention Revisit per MD consult or patient Sign Off request:
[2021-02-25] MEDS: ENOXAPARIN 40 MG/0.4 ML INJ SUB-Q SCH (23:12)
[2021-02-25 23:15] VITALS: BP 97/54
[2021-02-26] MEDS: GABAPENTIN 300 MG CAP PO SCH (06:03)
[2021-02-26] MEDS: DOCUSATE SODIUM 100 MG CAP PO SCH (09:40)
[2021-02-26] MEDS: ZINC SULFATE 220 MG CAP PO SCH (09:40)
[2021-02-26] MEDS: ASCORBIC ACID 500 MG TAB PO SCH (09:40)
[2021-02-26] MEDS: CHOLECALCIFEROL (VIT D3) 5,000 UNIT TAB PO SCH (09:40)
[2021-02-26] MEDS: PANTOPRAZOLE 40 MG TAB PO SCH (09:41)
--- NOTE | 2021-02-26 13:52 | Progress Note ---
Assessment and Plan Assessment and plan: (1) Acute respiratory failure with hypoxia Supplemental oxygen, pulse oximetry, nebulizer therapy, noninvasive positive pressure ventilation as clinically indicated. (2) Bilateral pneumonia Pneumonia protocol: IV antibiotic therapy, supplemental oxygen, pulse oximetry, blood culture. (3) SIRS (systemic inflammatory response syndrome) Patient does not meet criteria for sepsis given normal WBC, no tachycardia, AMS or fever on admission. (4) COVID-19 virus infection Covid PCR positive on 02/13. Continue dexamethasone and remdesivir. Continue to follow of anti-inflammatory markers. (5) Disposition Await physical therapy evaluation for placement. (6) DVT prophylaxis SCD to bilateral lower extremities while in bed, prophylactic anticoagulation 02/21/2021. Patient currently with 4 L of oxygen. Continue Covid protocol. Continue dexamethasone per ID recommendations and completed antibiotics and remdesivir. Continue to trend inflammatory markers. 02/22/2021. Patient currently with 4 L of oxygen. Continue Covid protocol. Continue dexamethasone per ID recommendations and completed antibiotics and remdesivir. Continue to trend inflammatory markers. 02/23/2021. Continue to wean oxygen as tolerated. Continue dexamethasone per ID recommendations and completed antibiotics and remdesivir. Continue to trend inflammatory markers. 02/25/2021: Awaiting home oxygen set up by CM. Discussion during rounds. Patient has good social support with son who will help admin medical care. Home health care set up to follow patient outpatient. Conditional d/c pending set up of afore mentioned O2. 02/26/2021: home health care and supplemental O2 set up. Discharge today. Son will draft roller picker. History Interval history: No acute overnight events. D/w CM and RN team, can be discharged home today as oxygen set up. Hospitalist Physical - Physical exam Narrative exam: General appearance: Present: no acute distress, well-nourished - EENT Eyes: Present: PERRL ENT: hearing intact, clear oral mucosa - Neck Neck: Present: supple, normal ROM - Respiratory Respiratory effort: normal Respiratory: bilateral: CTA - Cardiovascular Heart Sounds: Present: S1 & S2. Absent: rub, click - Extremities Extremities: pulses symmetrical, No edema Peripheral Pulses: within normal limits - Abdominal General gastrointestinal: Present: soft, non-tender, non-distended, normal bowel sounds Male genitourinary: Present: normal - Integumentary Integumentary: Present: clear, warm, dry - Musculoskeletal Musculoskeletal: gait normal, strength equal bilaterally - Psychiatric Psychiatric: appropriate mood/affect, intact judgment & insight - Neurologic Neurologic: CNII-XII intact, moves all extremities - Constitutional Vitals: Temp Pulse Resp BP Pulse Ox 98.9 F 86 18 97/54 95 02/25/21 23:00 02/25/21 23:00 02/25/21 23:00 02/25/21 23:00 02/26/21 11:21 General appearance: Present: no acute distress, well-nourished HEART Score - HEART Score Troponin: Troponin T < 0.010 ng/mL (0.00-0.029) 02/13/21 16:14 Results - Labs CBC & Chem 7: 02/23/21 07:23 02/23/21 07:23 Labs: Laboratory Last Values WBC 10.4 K/mm3 (4.5-11.0) 02/23/21 07:23 RBC 4.44 M/mm3 (3.65-5.03) 02/23/21 07:23 Hgb 12.5 gm/dl (11.8-15.2) 02/23/21 07:23 Hct 38.0 % (35.5-45.6) 02/23/21 07:23 MCV 85 fl (84-94) 02/23/21 07:23 MCH 28 pg (28-32) 02/23/21 07:23 MCHC 33 % (32-34) 02/23/21 07:23 RDW 16.2 % (13.2-15.2) H 02/23/21 07:23 Plt Count 272 K/mm3 (140-440) 02/23/21 07:23 Lymph % (Auto) 18.4 % (13.4-35.0) 02/23/21 07:23 [place] % (Auto) 9.7 % (0.0-7.3) H 02/23/21 07:23 Eos % (Auto) 0.4 % (0.0-4.3) 02/23/21 07:23 Baso % (Auto) 0.2 % (0.0-1.8) 02/23/21 07:23 Lymph # (Auto) 1.9 K/mm3 (1.2-5.4) 02/23/21 07:23 [place] # (Auto) 1.0 K/mm3 (0.0-0.8) H 02/23/21 07:23 Eos # (Auto) 0.0 K/mm3 (0.0-0.4) 02/23/21 07: Baso # (Auto) 0.0 K/mm3 (0.0-0.1) 02/23/21 07:23 Add Manual Diff Complete 02/14/21 10:05 Total Counted 100 02/14/21 10:05 Seg Neutrophils % 71.3 % (40.0-70.0) H 02/23/21 07:23 Seg Neuts % (Manual) 83.0 % (40.0-70.0) H 02/14/21 10:05 Lymphocytes % (Manual) 13.0 % (13.4-35.0) L 02/14/21 10:05 Monocytes % (Manual) 3.0 % (0.0-7.3) 02/14/21 10:05 Myelocytes % 1.0 % 02/14/21 10:05 Nucleated RBC % Not Reportable 02/14/21 10:05 Seg Neutrophils # 7.4 K/mm3 (1.8-7.7) 02/23/21 07:23 Seg Neutrophils # Man 6.9 K/mm3 (1.8-7.7) 02/14/21 10:05 Band Neutrophils # 0.0 K/mm3 02/14/21 10:05 Lymphocytes # (Manual) 1.1 K/mm3 (1.2-5.4) L 02/14/21 10:05 Abs React Lymphs (Man) 0.0 K/mm3 02/14/21 10:05 Monocytes # (Manual) 0.2 K/mm3 (0.0-0.8) 02/14/21 10:05 Eosinophils # (Manual) 0.0 K/mm3 (0.0-0.4) 02/14/21 10:05 Basophils # (Manual) 0.0 K/mm3 (0.0-0.1) 02/14/21 10:05 Metamyelocytes # 0.0 K/mm3 02/14/21 10:05 Myelocytes # 0.1 K/mm3 02/14/21 10:05 Promyelocytes # 0.0 K/mm3 02/14/21 10:05 Blast Cells # 0.0 K/mm3 02/14/21 10:05 WBC Morphology Not Reportable 02/14/21 10:05 Hypersegmented Neuts Not Reportable 02/14/21 10:05 Hyposegmented Neuts Not Reportable 02/14/21 10:05 Hypogranular Neuts Not Reportable 02/14/21 10:05 Smudge Cells Not Reportable 02/14/21 10:05 Toxic Granulation Not Reportable 02/14/21 10:05 Toxic Vacuolation Not Reportable 02/14/21 10:05 Dohle Bodies Not Reportable 02/14/21 10:05 Pelger-Huet Anomaly Not Reportable 02/14/21 10:05 [place] Rods Not Reportable 02/14/21 10:05 Platelet Estimate Consistent w auto 02/14/21 10:05 Clumped Platelets Not Reportable 02/14/21 10:05 Plt Clumps, EDTA Not Reportable 02/14/21 10:05 Large Platelets Not Reportable 02/14/21 10:05 Giant Platelets Not Reportable 02/14/21 10:05 Platelet Satelliting Not Reportable 02/14/21 10:05 Plt Morphology Comment Not Reportable 02/14/21 10:05 RBC Morphology Normal 02/14/21 10:05 Dimorphic RBCs Not Reportable 02/14/21 10:05 Polychromasia Not Reportable 02/14/21 10:05 Hypochromasia Not Reportable 02/14/21 10:05 Poikilocytosis Not Reportable 02/14/21 10:05 Anisocytosis Not Reportable 02/14/21 10:05 Microcytosis Not Reportable 02/14/21 10:05 Macrocytosis Not Reportable 02/14/21 10:05 Spherocytes Not Reportable 02/14/21 10:05 Pappenheimer Bodies Not Reportable 02/14/21 10:05 Sickle Cells Not Reportable 02/14/21 10:05 Target Cells Not Reportable 02/14/21 10:05 Tear Drop Cells Not Reportable 02/14/21 10:05 Ovalocytes Not Reportable 02/14/21 10:05 Helmet Cells Not Reportable 02/14/21 10:05 [place] Bodies Not Reportable 02/14/21 10:05 [place] Rings Not Reportable 02/14/21 10:05 [place] Cells Not Reportable 02/14/21 10:05 Bite Cells Not Reportable 02/14/21 10:05 Crenated Cell Not Reportable 02/14/21 10:05 Elliptocytes Not Reportable 02/14/21 10:05 Acanthocytes (Spur) Not Reportable 02/14/21 10:05 Rouleaux Not Reportable 02/14/21 10:05 Hemoglobin C Crystals Not Reportable 02/14/21 10:05 Schistocytes Not Reportable 02/14/21 10:05 Malaria parasites Not Reportable 02/14/21 10:05 [place] Bodies Not Reportable 02/14/21 10:05 Hem Pathologist Commnt No 02/14/21 10:05 PT 16.9 Sec. (12.2-14.9) H 02/13/21 16:13 INR 1.32 (0.87-1.13) H 02/13/21 16:13 D-Dimer 4286.34 ng/mlDDU (0-234) H 02/15/21 07:29 Sodium 136 mmol/L (137-145) L 02/23/21 07:23 Potassium 4.6 mmol/L (3.6-5.0) 02/23/21 07:23 Chloride 99.2 mmol/L (98-107) 02/23/21 07:23 Carbon Dioxide 28 mmol/L (22-30) 02/23/21 07:23 Anion Gap 13 mmol/L 02/23/21 07:23 BUN 13 mg/dL (9-20) 02/23/21 07:23 Creatinine 0.7 mg/dL (0.8-1.3) L 02/23/21 07:23 Estimated GFR > 60 ml/min 02/23/21 07:23 BUN/Creatinine Ratio 19 % 02/23/21 07:23 Glucose 83 mg/dL (75-100) 02/23/21 07:23 POC Glucose 152 mg/dL (70-105) H 02/16/21 12:11 Hemoglobin A1c 6.7 % (4-6) H 02/14/21 10:05 Calcium 8.9 mg/dL (8.4-10.2) 02/23/21 07:23 Ferritin 1427.0 ng/mL (30.0-300.0) H 02/13/21 16:13 Total Bilirubin 0.30 mg/dL (0.1-1.2) 02/17/21 06:39 AST 48 units/L (5-40) H 02/17/21 06:39 ALT 96 units/L (7-56) H 02/17/21 06:39 Alkaline Phosphatase 150 units/L (35-129) H 02/17/21 06:39 Lactate Dehydrogenase 443 units/L (91-180) H 02/13/21 16:14 Troponin T < 0.010 ng/mL (0.00-0.029) 02/13/21 16:14 C-Reactive Protein 7.70 mg/dL (0.00-1.30) H 02/15/21 07:29 NT-Pro-B Natriuret Pep 236.4 pg/mL (0-900) 02/13/21 16:14 Total Protein 6.3 g/dL (6.3-8.2) 02/17/21 06:39 Albumin 2.7 g/dL (3.9-5) L 02/17/21 06:39 Albumin/Globulin Ratio 0.8 % 02/17/21 06:39 Procalcitonin 1.49 ng/mL (<0.15) 02/15/21 07:29 Coronavirus (PCR) Positive (Negative) A 02/13/21 08:30 Hepatitis A IgM Ab Non-reactive (NonReactive) 02/14/21 10:05 Hep Bs Antigen Non-reactive (Negative) 02/14/21 10:05 Hep B Core IgM Ab Reactive (NonReactive) A 02/14/21 10:05 Hepatitis C Antibody Non-reactive (NonReactive) 02/14/21 10:05 Santos/IV: Voiding Method Urinal Active Medications - Current Medications Current Medications: Generic Name Dose Route Start Last Admin Trade Name Freq PRN Reason Stop Dose Admin Acetaminophen 650 mg 02/13/21 21:48 02/26/21 09:40 Acetaminophen 325 Mg Tab PO 650 mg Q4H PRN Administration Pain MILD(1-3)/Fever >100.5/SALAS Hydrocodone Bitart/Acetaminophen 1 each 02/13/21 21:52 Hydrocodone/Acetaminophen 7.5-325mg Tab PO Q6H PRN Pain , Severe (7-10) Ascorbic Acid 1,000 mg 02/14/21 22:00 02/26/21 09:40 Ascorbic Acid 500 Mg Tab PO 1,000 mg BID ALIN Administration Cholecalciferol 5,000 unit 02/14/21 18:00 02/26/21 09:40 Cholecalciferol (Vit D3) 5,000 Unit Tab PO 5,000 unit DAILY ALIN Administration Docusate Sodium 100 mg 02/13/21 22:00 02/26/21 09:40 Docusate Sodium 100 Mg Cap PO 100 mg BID ALIN Administration Enoxaparin Sodium 40 mg 02/13/21 22:00 02/25/21 23:12 Enoxaparin 40 Mg/0.4 Ml Inj SUB-Q 40 mg QDAY@2200 ALIN Administration Gabapentin 300 mg 02/13/21 22:00 02/26/21 06:03 Gabapentin 300 Mg Cap PO 300 mg Q8HR ALIN Administration Hydromorphone HCl 0.5 mg 02/13/21 21:48 Hydromorphone 1 Mg/1 Ml Inj IV Q3H PRN Pain , Severe (7-10) Metoclopramide HCl 10 mg 02/13/21 21:48 Metoclopramide 10 Mg/2 Ml Inj IV Q6H PRN Nausea And Vomiting Ondansetron HCl 4 mg 02/13/21 21:48 Ondansetron 4 Mg/2 Ml Inj IV Q8H PRN Nausea And Vomiting Pantoprazole Sodium 40 mg 02/14/21 07:30 02/26/21 09:41 Pantoprazole 40 Mg Tab PO 40 mg QDAC ALIN Administration Sodium Chloride 10 ml 02/13/21 22:00 02/26/21 09:41 Sodium Chloride 0.9% 10 Ml Flush Syringe IV 10 ml BID ALIN Administration Sodium Chloride 10 ml 02/13/21 21:48 Sodium Chloride 0.9% 10 Ml Flush Syringe IV PRN PRN LINE FLUSH Zinc Sulfate 220 mg 02/14/21 22:00 02/26/21 09:40 Zinc Sulfate 220 Mg Cap PO 220 mg BID ALIN Administration Nutrition/Malnutrition Assess - Dietary Evaluation Nutrition/Malnutrition Findings: Nutrition Notes Start: 02/20/21 08:55 Freq: Status: Active Protocol: Document 02/20/21 08:55 LILLIANA (Rec: 02/20/21 08:56 LILLIANA [id number]) Nutrition Notes Need for Assessment generated from: LOS Initial or Follow up Brief Note Subjective/Other Information Screen for LOS. Pt eating 100% of meals. Nutrition Intervention Revisit per MD consult or patient Sign Off request:
== END 2021-02-26 11:50 | disposition home health service (06) | DRG 177 ==
LOC: ED 13:10 → 3A 17:05
PROVIDERS: ADMIT Internal Medicine; ATTEND Internal Medicine
PROC: XW033E5 Introduction of Remdesivir Anti-infective into Peripheral Vein, Percutaneous Approach, New Technology Group 5 (ICD-10-PCS; principal; 2021-02-14)
DX: U07.1 COVID-19 (principal); J12.82 Pneumonia due to coronavirus disease 2019; J96.01 Acute respiratory failure with hypoxia; E87.1 Hypo-osmolality and hyponatremia; R65.10 Systemic inflammatory response syndrome (SIRS) of non-infectious origin without acute organ dysfunction; E87.5 Hyperkalemia; R74.01 Elevation of levels of liver transaminase levels; R74.8 Abnormal levels of other serum enzymes; Z85.46 Personal history of malignant neoplasm of prostate; Z79.899 Other long term (current) drug therapy; Z79.01 Long term (current) use of anticoagulants; Z79.891 Long term (current) use of opiate analgesic; Z82.49 Family history of ischemic heart disease and other diseases of the circulatory system
CPT/HCPCS: 36415; 71045; 71275; 80048; 80053; 80074; 82728; 82962; 83036; 83615; 83880; 84145; 84484; 85007; 85025; 85379; 85610; 86140; 87040; 87517; 93005; 93970; 94760; 99291; G0378; J0456; J0610; J0696; J1100; J1650; J7030; J7050; J8540; Q9967; U0003